=== PATIENT | male | born 1965 | race African-American/Black ===

== ENCOUNTER 2019-05-18 08:48 | Outpatient (CLI) | payer OTHER, SELFPAY ==
--- NOTE | ~2019-05-18 | XR_ITS ---
EXAMINATION: XR hip RT min 2V DATE: 05/18/2019 09:14 INDICATION: Right hip pain. TECHNIQUE: 2 views of right hip were obtained. COMPARISON: None. FINDINGS: Bone alignment is normal. No fracture. There is mild right hip osteoarthritis. IMPRESSION: 1. Mild right hip osteoarthritis. Reviewed, dictated and finalized at location A. SOFTWARE DEVELOPMENT ENGINEER
== END 2019-05-18 08:49 | disposition home or self-care (01) ==
LOC: ANHIMG 08:54
PROVIDERS: PCP Physician Assistant; Visit Provider Physician Assistant
DX: M16.11 Unilateral primary osteoarthritis, right hip (principal)
CPT/HCPCS: 73502

== ENCOUNTER 2020-08-25 09:50 | Emergency (ER) | payer OTHER, SELFPAY ==
[2020-08-25 10:12] VITALS: BP 174/98; PULSE 87; RESP 18; TEMP 36.4; O2SAT 100
[2020-08-25] MEDS: HYDROGEN PEROXIDE 3% SOLN(*SP) 473 ML BOTTLE (11:22)
[2020-08-25 11:38] VITALS: BP 182/95; PULSE 73; RESP 18; O2SAT 97
--- NOTE | 2020-08-25 11:44 | ED.EAR ---
HPI - Ear Problem General Chief complaint: Ear Stated complaint: high blood pressure, ?ear infection Time Seen by Provider: 08/25/20 10:17 Source: patient Mode of arrival: ambulatory Limitations: no limitations History of Present Illness HPI Narrative: Patient is a 55-year-old male who presents complaining of left ear pain. Patient reports he has been on antibiotics x 1 week for ear infection . Patient reports continued left ear pain and decreased hearing. He denies fever, sore throat or other complaints. MD Complaint: ear pain Location: left ear Related Data Allergies Allergy/AdvReac Type Severity Reaction Status Date / Time No Known Allergies Allergy Verified 08/25/20 11:37 Review of Systems Review of Systems: Narrative: CONSTITUTIONAL: Denies fever, chills, or sweats. EYES: Denies visual changes, redness, or discharge. ENT: Left ear pain CARDIOVASCULAR: Denies chest pain, palpitations, or edema. RESPIRATORY: Denies cough or dyspnea. GASTROINTESTINAL: Denies abdominal pain, nausea, vomiting, or diarrhea. GENITOURINARY: Denies dysuria or hematuria. SKIN: Denies rash or itching. MUSCULOSKELETAL: Denies back pain, joint pain, or myalgia. NEUROLOGIC: Denies headache, numbness, dizziness, or weakness. PSYCHIATRIC: Denies anxiety or depression. [facility] Past Medical History Medical History Hypertension Surgical History Surgical History History of orthopedic surgery Social History Social History (Updated 08/25/20 @ 11:59 by DELLA Mishra) Smoking status: Current every day smoker Alcohol intake: never Substance use: never Comments At the time of signature, I have reviewed and agree with nursing past medical, surgical, social, and family history unless otherwise noted. Please see nursing chart for further information. There is no relevant family history pertinent to the presenting complaint. Exam Narrative: Exam Narrative: GENERAL: Well-appearing, well-nourished, and in no acute distress. HEAD: Normocephalic, atraumatic. EYES: EOMI. No redness or drainage. Conjunctiva are normal. ENT: Mucous membranes pink and moist. Nares clear. No rhinorrhea. Right TM normal. Left TM not visualized as patient has a large cerumen impaction. Throat normal. Uvula midline. NECK: AROM. Supple. No lymphadenopathy. CHEST: No respiratory distress. HEART: Regular rate and rhythm. EXTREMITIES: Normal range of motion. SKIN: Warm, dry, no rash. NEURO: No focal deficits. Alert and oriented x3. Gait steady. PSYCH: Normal affect. No signs of depression or anxiety. Course Vital Signs Vital signs: Vital Signs Temperature 36.4 C L 08/25/20 10:12 Pulse Rate 87 08/25/20 10:12 Respiratory Rate 18 08/25/20 10:12 Blood Pressure 174/98 H 08/25/20 10:12 Pulse Oximetry 100 08/25/20 10:12 Temperature 36.4 C L 08/25/20 10:12 Pulse Rate 73 08/25/20 11:38 Respiratory Rate 18 08/25/20 11:38 Blood Pressure 182/95 H 08/25/20 11:38 Pulse Oximetry 97 08/25/20 11:38 Reviewed. Patient has been instructed to follow-up with his PCP regarding his blood pressure. Procedures Ear Wax Removal Left Ear: Ear Wax Removal Date: 08/25/20 Ear Wax Removal Time: 12:00 Results: Re-examined: cerumen removed completely Ear Canal Exam: atraumatic Patient Tolerated Procedure: well Complications: no problems Technique: ear canal irrigated and ear canal curetted Medical Decision Making MDM Narrative Medical decision making narrative: Large amount of cerumen removed from left ear. TM visualized, normal and intact. Vital Signs Vital Signs: Vital Signs Temperature 36.4 C L 08/25/20 10:12 Pulse Rate 87 08/25/20 10:12 Respiratory Rate 18 08/25/20 10:12 Blood Pressure 174/98 H 08/25/20 10:12 Pulse Oximetry 100 08/25/20 10:12 Temperature 36.
== END 2020-08-25 12:09 | disposition home or self-care (01) ==
PROVIDERS: Emergency Provider Nurse Practitioner; PCP Physician Assistant
DX: H61.22 Impacted cerumen, left ear (principal); I10 Essential (primary) hypertension; F17.200 Nicotine dependence, unspecified, uncomplicated
CPT/HCPCS: 69210; 99282; A9270

== ENCOUNTER 2020-10-10 09:32 | Outpatient (CLI) | payer OTHER, SELFPAY ==
--- NOTE | ~2020-10-10 | CT_ITS ---
EXAMINATION: CT pelvis wo con DATE: 10/10/2020 10:07 INDICATION: Bilateral inguinal pain. TECHNIQUE: Computed tomography (CT) of the pelvis was performed without intravenous contrast. Automat ed exposure control and iterative reconstruction technique were employed. The dose-length product was 877.11 mGy-cm. COMPARISON: CT abdomen and pelvis 10/29/2018 FINDINGS: There are supraumbilical and periumbilical ventral hernias containing fat. There are change s of right inguinal hernia repair. The prostate is mildly enlarged. There are no dilated loops of bow el. The appendix is normal. There are no pathologically enlarged lymph nodes. There is no free intrap eritoneal fluid. There is moderate lumbar spondylosis. IMPRESSION: 1. Supraumbilical and periumbilical ventral hernias containing fat. Reviewed, dictated and finalized at location A.
== END 2020-10-10 09:33 | disposition home or self-care (01) ==
PROVIDERS: PCP Physician Assistant; Visit Provider Surgery
DX: K42.9 Umbilical hernia without obstruction or gangrene (principal); K43.9 Ventral hernia without obstruction or gangrene
CPT/HCPCS: 72192

== ENCOUNTER 2020-11-09 08:51 | Observation (INO) | payer OTHER, SELFPAY ==
[2020-11-09] VITALS (19 sets, daily range): BP systolic 154–178; BP diastolic 76–99; PULSE 70–89; RESP 17–22; TEMP 36.4–37.4; O2SAT 94–100; BMI 33.2
--- NOTE | ~2020-11-09 | CT_ITS ---
EXAMINATION: CT brain wo con DATE: 11/09/2020 09:45 INDICATION: Headache. Stroke with residual slurred speech and right-sided weakness and paresthesias. TECHNIQUE: Computed tomography (CT) of the head was performed without intravenous contrast. Sagittal and coronal reconstructions were performed. The mA was adjusted according to patient size. Iterative reconstruction technique was employed. The dose-length product was 605.33 mGy-cm. COMPARISON: head CT dated 09/01/2018 FINDINGS: No acute intracranial hemorrhage, acute infarction or abnormal extra axial fluid collection. Ventricl es are normal and symmetric. No mass/mass effect. The orbits, paranasal sinuses and mastoid air cells are normal. IMPRESSION: 1. Normal brain. No acute intracranial process. Reviewed, dictated and finalized at location A.
--- NOTE | ~2020-11-09 | US_ITS ---
EXAMINATION: US carotid duplex BI DATE: 11/10/2020 15:49 INDICATION: Right arm paresthesias. TECHNIQUE: Grayscale, color Doppler, and pulsed Doppler images of the cervical carotid arteries were obtained. The degree of vessel stenosis is placed in one of the following categories: normal, <50%, 5 0-69%, >=70% but less than near-occlusion, near-occlusion, or total occlusion. Note that percent sten osis relative to normal distal artery lumen diameter is indirectly measured from velocity measurement s as described by Olvin, et al. Radiology 2003; [id number]:[id number]. COMPARISON: None. FINDINGS: RIGHT: The right common carotid artery (CCA) peak systolic velocity (PSV) is 83 cm/s. The right internal car otid artery (ICA) PSV is 101 cm/s. The right ICA end-diastolic velocity (EDV) is 25 cm/s. The right I CA/CCA PSV ratio is 1.2. Grayscale imaging of the right ICA is insufficient to exclude a small amount of plaque however if present, color Doppler images would be consistent with <50% diameter reduction from plaque in the ICA. The external carotid artery (ECA) PSV is 107 cm/s. There is antegrade flow in the right vertebral artery. LEFT: The left CCA PSV is 118 cm/s. The left ICA PSV is 93 cm/s. The left ICA EDV is 18 cm/s. The left ICA/ CCA PSV ratio is 0.8. As on the left the grayscale imaging of the left ICA is insufficient to exclude a small amount of plaque however if present, color Doppler images would be consistent with an estima te of <50% diameter reduction from plaque in the ICA. The ECA PSV is 86 cm/s. There is antegrade flow in the left vertebral artery. IMPRESSION: 1. Suboptimal grayscale visualization of the bilateral internal carotid arteries without definitive p laque however if plaque were present in either internal carotid artery, color Doppler imaging would b e consistent with <50% stenosis. Reviewed, dictated and finalized at location A. IMPRESSION: 1. Suboptimal grayscale visualization of the bilateral internal carotid arterie s without definitive plaque however if plaque were present in either internal c arotid artery, color Doppler imaging would be consistent with <50% stenosis.
--- NOTE | ~2020-11-09 | MR_ITS ---
EXAMINATION: MR brain/brain stem wo/w con EXAM DATE: 11/10/2020 13:31 INDICATION: Right-sided hemiparesis. TECHNIQUE: Magnetic resonance imaging (MRI) of the brain/brain stem obtained without contrast. Sagit giselle T1, axial diffusion, gradient echo (T2*), T1, T2, FLAIR sequences obtained. Patient was then inj ected with 20 cc intravenous Multihance contrast. Axial and coronal postcontrast T1 weighted sequence s obtained. Correlation is made to head CT 11/09/2020. FINDINGS: There are no areas of restricted diffusion to suggest acute infarction. There is no acute hemorrhage seen on the T2*, a hemosiderin sensitive sequence. No intraparenchymal brain mass. The ve ntricles are normal in size. There are no extra-axial collections. Flow voids are seen in the cereb ral arteries on the T2-weighted sequences consistent with their expected patency. Disconjugate gaze. Orbits otherwise unremarkable. Soft tissue is unremarkable. There are no areas of abnormal enhance ment on the postcontrast images. IMPRESSION: 1. Unremarkable brain MRI examination. Reviewed, dictated and finalized at location B.
--- NOTE | ~2020-11-09 | XR_ITS ---
EXAMINATION: XR chest 1V portable 11/09/2020 09:28 INDICATION: Dyspnea. PROCEDURE: AP chest COMPARISON: Chest dated 07/04/2018. FINDINGS: Subtle interstitial infiltrates of the mid and lower lung zones. The cardiomediastinal silh ouette is within normal limits. There are no pleural effusions. There is no pneumothorax suspected. Severe osteoarthritis of the right glenohumeral joint. IMPRESSION: 1: Subtle interstitial infiltrates of the mid and lower lung zones, suspicious for pneumonia.. Reviewed, dictated and finalized at location A.
--- NOTE | ~2020-11-09 | CT_ITS ---
EXAMINATION: CT cervical spine wo [facility] EXAM DATE: 11/09/2020 16:46 INDICATION: Neck and right arm pain, paresthesia. Right-sided neck and arm pain, paresthesia. TECHNIQUE: Spiral CT of the cervical spine was performed without contrast. Axial images were reviewe d. Coronal and sagittal reformatted images cervical spine were also reviewed. The dose-length produc t (DLP) for this examination was 433.12 mGy-cm. The exposure was tailored according to patient size (auto mA exposure control), and iterative reconstruction (ASIR) was used as additional dose reduction technique. There is no prior study for comparison. FINDINGS: There is moderate loss of the C3-4 disc height, mild to moderate disc disease at the other cervical levels. There are no acute fractures identified. The odontoid process is intact. The later al masses of C1 line up with C2. Medially positioned carotid arteries causing the prevertebral wideni ng. Paraspinal soft tissue is unremarkable. Level by level evaluation: C2-C3: There is a minimal diffuse disc bulge. Uncovertebral joint arthropathy: Mild left. Facet joint arthropathy: Mild bilateral. Neural foraminal stenosis: No stenosis. Central canal stenosis: No stenosis. C3-C4: There is a mild to moderate diffuse disc bulge. Uncovertebral joint arthropathy: Moderate right, mild left. Facet joint arthropathy: Mild bilateral. Neural foraminal stenosis: Mild to moderate right, mild left. Central canal stenosis: Mild . C4-C5: There is a mild to moderate diffuse disc bulge. Uncovertebral joint arthropathy: Mild to moderate left, mild right. Facet joint arthropathy: Mild bilateral. Neural foraminal stenosis: Mild left. Central canal stenosis: Mild. C5-C6: There is a mild diffuse disc bulge. Uncovertebral joint arthropathy: Mild to moderate left, mild right. Facet joint arthropathy: Mild bilateral. Neural foraminal stenosis: Mild left. Central canal stenosis: Mild. C6-C7: There is a mild diffuse disc bulge. Uncovertebral joint arthropathy: Mild to moderate bilateral. Facet joint arthropathy: Mild to moderate bilateral. Neural foraminal stenosis: No stenosis. Central canal stenosis: Minimal. C7-T1: There is a mild diffuse disc bulge. Uncovertebral joint arthropathy: Mild to moderate bilateral. Facet joint arthropathy: Mild bilateral. Neural foraminal stenosis: Mild to moderate bilateral. Central canal stenosis: No stenosis. IMPRESSION: Mild to moderate cervical spondylosis as detailed above. Reviewed, dictated and finalized at location B.
--- NOTE | 2020-11-09 09:08 | ECG_ITS ---
Measurements Intervals [place] Rate: 89 P: 61 CO: 171 QRS: -64 QRSD: 120 T: 41 QT: 364 QTc: 444 Interpretive Statements SINUS RHYTHM LEFT AXIS DEVIATION INCOMPLETE RIGHT BUNDLE BRANCH BLOCK BORDERLINE R WAVE PROGRESSION, ANTERIOR LEADS BASELINE ARTIFACT- I, III, AVR, AVL,A VF, V1-V2 BORDERLINE ECG Electronically Signed On 11-09-2020 9:29:06 CDT by Moo Joseph D.O.
--- NOTE | 2020-11-09 09:23 | ED.HA ---
HPI - Headache General Chief Complaint: Headache <Elba Gonzalez PA-C - Last Filed: 11/09/20 11:15> Stated Complaint: headache, back and arm pain <ANNY Neal Last Filed: 11/09/20 11:15> Time Seen by Provider: 11/09/20 09:05 <Elba Gonzalez PA-C - Last Filed: 11/09/20 11:15> Source: patient <ANNY Neal Last Filed: 11/09/20 11:15> Mode of arrival: ambulatory <ANNY Neal Last Filed: 11/09/20 11:15> Limitations: no limitations <ANNY Neal Last Filed: 11/09/20 11:15> History of Present Illness HPI Narrative: This is a 55 year old male that presents to the ER for headache x 3 days. Unable to really describe headache. Reports it is a funny feeling in his head. He gets some relief with Tylenol. He also reports some tingling in his right arm. Reports history of stroke with residual slurred speech. He was concerned he had another stroke which prompted him to be seen. Also reports neck and right arm pain that is worse with movement and relieved with rest. Denies any recent injury or trauma. Denies fever, stiff neck, vision changes, vomiting, or weakness. <Elba Gonzalez PA-C - Last Filed: 11/09/20 11:15> Related Data Home Medications: Home Medications Medication Instructions Recorded Confirmed aspirin 81 mg chewable tablet 81 mg PO DAILY 09/22/20 11/09/20 baclofen 10 mg tablet 10 mg PO DAILY 09/22/20 11/09/20 clonidine HCl 0.1 mg tablet 0.1 mg PO BID 09/22/20 11/09/20 fenofibrate nanocrystallized 145 145 mg PO DAILY 09/22/20 11/09/20 mg tablet ferrous sulfate 325 mg (65 mg 325 mg PO BID 09/22/20 11/09/20 iron) tablet folic acid 1 mg tablet 1 mg PO DAILY 09/22/20 11/09/20 gabapentin 300 mg capsule 600 mg PO TID 09/22/20 11/09/20 losartan 100 1 tablet PO DAILY 09/22/20 11/09/20 mg-hydrochlorothiazide 12.5 mg tablet omeprazole 40 mg capsule,delayed 40 mg PO DAILY 09/22/20 11/09/20 release tramadol 50 mg tablet 50 mg PO Q6H PRN 09/22/20 11/09/20 docusate sodium [Colace] 100 mg PO BID PRN 11/09/20 11/09/20 phenytoin sodium extended 100 mg PO TID 11/09/20 11/09/20 [Dilantin Extended] <Elba Gonzalez PA-C - Last Filed: 11/09/20 11:15> Allergies/Adverse Reactions: Allergies Allergy/AdvReac Type Severity Reaction Status Date / Time No Known Allergies Allergy Verified 11/09/20 09:17 <Elba Gonzalez PA-C - Last Filed: 11/09/20 11:15> Review of Systems Review of Systems: Narrative: CONSTITUTIONAL: Denies fever EYES: Denies visual changes CARDIOVASCULAR: Denies chest pain RESPIRATORY: Denies dyspnea. GASTROINTESTINAL: Denies vomiting MUSCULOSKELETAL: Reports joint pain, and myalgia. NEUROLOGIC: Denies headache, numbness, or weakness. <Elba Gonzalez PA-C - Last Filed: 11/09/20 11:15> All systems reviewed & are unremarkable except as noted in HPI and below <Elba Gonzalez PA-C - Last Filed: 11/09/20 11:15> [facility] Past Medical History Medical History: Medical History (Updated 11/09/20 @ 14:06 by Adina Pham PA-C) Blood clot in vein Cerebrovascular accident Residual dysarthria. Chronic anemia Dyslipidemia Hypertension Seizure <Elba Gonzalez PA-C - Last Filed: 11/09/20 11:15> Surgical History Surgical History: Surgical History (Updated 11/09/20 @ 14:06 by Adina Pham PA-C) History of excision of lesion History of orthopedic surgery Right arm. History of right inguinal hernia repair (11/13/18) History of umbilical hernia repair (11/13/18) <Elba Gonzalez PA-C - Last Filed: 11/09/20 11:15> Family History Family History: Family History Sibling Diabetes mellitus <Elba Gonzalez PA-C - Last Filed: 11/09/20 11:15> Social History Social History: Social History (Updated 11/09/20 @ 14:03 by Adina Pham PA-C) Social History: The patient lives in [place]. He is unemploye
[2020-11-09 09:24] LABS: Basophils Absolute Auto 0.1 K/mm3 (0.0-0.1); Basophils Percent Auto 0.7 % (0.2-1.2); Eosinophils Absolute Auto 0.2 K/mm3 (0-0.3); Eosinophils Percent Auto 2.3 % (0-4.4); Hematocrit 35.8 % (42.0-52.0); Hemoglobin 12.1 g/dL (14.0-18.0); Immature Granulocyte Absolute 0.02 K/mm3 (0.00-0.031); Immature Granulocyte Percent A 0.2 % (0-0.5); Immature Platelet Fraction Pct 16.8 % (0.9-11.2); Lymphocytes Absolute Auto 2.58 K/mm3 (0.9-3.2); Lymphocytes Percent Auto 27.4 % (18.3-44.2); Mean Corpuscular HGB Conc 33.8 g/dl (32-36); Mean Corpuscular Hemoglobin 28.8 pg (26-34); Mean Corpuscular Volume 85.2 fl (80-100); Mean Platelet Volume 13.3 fl (7.4-10.4); Monocytes Absolute Auto 1.1 K/mm3 (0.1-0.6); Monocytes Percent Auto 11.9 % (2.6-8.5); Neutrophils Absolute Auto 5.4 K/mm3 (1.3-6.7); Neutrophils Percent Auto 57.5 % (45.5-73.1); Platelet Count Result 154 k/mm3 (150-375); Red Cell Distribution Width 14.3 % (11.5-14.5); White Blood Count 9.4 K/mm3 (4.5-10.0)
--- NOTE | 2020-11-09 09:31 | PC.NURSE ---
Pt to CT scan via stretcher at this time.
[2020-11-09 09:32] LABS: INR 0.9; Prothrombin Time 11.7 Seconds (11.1-14.7)
[2020-11-09 09:35] LABS: Alanine Aminotransferase 23 U/L (4-50); Albumin Level 4.5 g/dL (3.5-5.1); Alkaline Phosphatase 65 U/L (38-126); Anion Gap 10 mmol/L (8-16); Aspartate Amino Transferase 37 U/L (17-59); Bilirubin,Total 0.5 mg/dL (0.2-1.3); Blood Urea Nitrogen 12 mg/dL (9-20); Calcium 9.5 mg/dL (8.4-10.2); Carbon Dioxide 26 mmol/L (22-30); Chloride 102 mmol/L (98-107); Estimated CRCL calculation 94 ml/min; Estimated Glomerular Filt Rate > 60; Glucose 120 mg/dL (65-110); Potassium 4.1 mmol/L (3.4-5.0); Sodium 138 mmol/L (137-145)
[2020-11-09 09:49] LABS: Troponin I < 0.012 ng/mL (0.000-0.034)
[2020-11-09 10:41] LABS: Glucose Point of Care 136 mg/dl (65-105)
[2020-11-09] MEDS: ASPIRIN 81 MG ENTERIC TABLET 243 MG PO (11:42)
--- NOTE | 2020-11-09 14:15 | PM.IMHP ---
H&P: HPI History of Present Illness Date/Time: 11/09/20 14:15 Chief Complaint: Headache and right arm tingling. Narrative: This is a very pleasant 55-year-old male with history of stroke, hypertension, and dyslipidemia who presented to the emergency department earlier today from home for evaluation of headache and right arm tingling. He has had headache for approximately 3 days that he has a difficult time describing and just says I have a funny feeling in my head. He has been taking Tylenol with perhaps a little bit of relief. Additionally he has had tingling in his right arm which has concerned him for the possibility of perhaps another stroke. With further questioning he has been having neck and right arm discomfort, worse with movement and relieved with rest which began after he started physical therapy due to lumbar radiculopathy which he has been doing for the last couple of weeks. He admits that he has been using his arms more in physical therapy, in order to help stretch out his legs and lumbar spine. He does have residual right-sided weakness and slurred speech from a previous stroke in 2003 but he has not noticed that is right-sided is any more weak than normal. He denies vertigo, photophobia, auditory and visual changes, worsening weakness from baseline, chest pain, palpitations, and dysphagia. Of note, chest x-ray showed subtle interstitial infiltrate of the mid lower lung zone suspicious for pneumonia. He was tested for COVID-19 emergency department that came back negative. The patient has no signs or symptoms to suggest underlying pneumonia or infection and he specifically denies fever, chills, sweats, sinus congestion, rhinorrhea, otalgia, odynophagia, shortness of breath, cough, nausea, vomiting, and diarrhea. Review of Systems Review of Systems: Twelve systems were reviewed with pertinent positives and negatives as per HPI. He has occasional intermittent lower extremity edema, more so on the right side he, of unclear etiology. He had a DVT many years ago. He denies calf pain and tenderness. No recent travel. Currently undergoing physical therapy for lumbar radiculopathy as per HPI. He has not had any recent falls or trauma. No saddle anesthesia, bladder, or bowel incontinence. Except as documented, all other systems were reviewed and are negative. [facility] Past Medical History Medical History (Updated 11/09/20 @ 23:53 by Adina Pham PA-C) Cerebrovascular accident Residual right-sided weakness and dysarthria. Chronic anemia Deep venous thrombosis Dyslipidemia Hypertension Seizure disorder Surgical History Surgical History (Updated 11/09/20 @ 23:45 by Adina Pham PA-C) History of excision of lesion History of orthopedic surgery Repair of right arm fracture. History of right inguinal hernia repair (11/13/18) History of umbilical hernia repair (11/13/18) Family History Family History Sibling Diabetes mellitus Social History Social History (Updated 11/09/20 @ 23:46 by Adina Pham PA-C) Social History: The patient lives alone in [place]. He is not and has no children. He is on disability since his stroke in 2003. Former smoker. No alcohol or illicit substance abuse. His niece, Cruz Vyas, is his healthcare power of deputy commonwealth's attorney. Code status: Full code. Meds Home Medications and Allergies Home Medications Medication Instructions Recorded Confirmed Type aspirin 81 mg chewable tablet 81 mg PO DAILY 09/22/20 11/09/20 History baclofen 10 mg tablet 10 mg PO DAILY 09/22/20 11/09/20 History clonidine HCl 0.1 mg tablet 0.1 mg PO BID 09/22/20 11/09/20 History fenofibrate nanocrystallized 145 145 mg PO DAILY 09/22/20 11/09/20 History mg tablet ferrous sulfate 325 mg (65 mg 325 mg PO BID 09/22/20 11/09/20 History iron) tablet folic acid 1 mg tablet 1 mg PO DAILY 09/22/20 11/09/20 History gabapentin 300 mg capsule 600 mg PO
[2020-11-09 15:05] LABS: Iron 57 ug/dL (49-181)
[2020-11-09 15:06] LABS: CRP 3.9 mg/dL (<1.0); Lactate Dehydrogenase 543 U/L (313-618); Magnesium 1.5 mg/dL (1.6-2.3)
[2020-11-09 15:12] LABS: NT Pro B Type Natriuretic Pept 23 pg/mL (5-100)
[2020-11-09 15:15] LABS: Percent Iron Saturation 19 % (20-50)
[2020-11-09 15:38] LABS: Procalcitonin 0.1 ng/mL
[2020-11-09 16:13] LABS: Folic Acid > 20.0 ng/mL (2.76->20)
--- NOTE | 2020-11-09 17:28 | ADMGEN ---
This patient, Jose Vyas, was admitted to 3 [facility] Surg Room 330-02. Patient/family oriented to hospital policies and general routines including ID bracelet, bed and alarms, visiting hours, pain management, procedures, bathroom and other care routines, personal items, smoking policy, room service/diet, and visiting hours. Information on how to activate the Rapid Response Team has been discussed. Patient/Family are encouraged to report perceived risks to care and to ask questions if they do not understand what they are told or what they should do.
[2020-11-09 18:39] LABS: SARS-CoV-2 RNA PCR Negative
[2020-11-09 20:55] LABS: Phenytoin Dilantin 13 ug/mL (10-20)
[2020-11-09] MEDS: MAGNESIUM OXIDE 400 MG TABLET PO (21:43)
[2020-11-10] VITALS (9 sets, daily range): BP systolic 146–166; BP diastolic 73–84; PULSE 64–84; RESP 16–20; TEMP 36.3–36.7; O2SAT 99–100
--- NOTE | 2020-11-10 | ECHO_ITS ---
Patient Info Name: Jose Vyas Age: 55 years : 1965 Gender: Male Ht: 72 in Wt: 245 lbs BSA: 2.41 m2 HR: 66 bpm BP: 166 / 84 mmHg Heart Rhythm: Sinus Rhythm Technical Quality: Fair Exam Date: 11/10/2020 2:49 PM Exam Location: [facility] Patient Status: Inpatient Admit Date: 11/09/2020 Staff Ordering Physician: Danya Gee PA-C Flat Machine Cutter: Rose Marie Jimenez RDCS Attending Provider: Danya Gee PA-C Exam Type: CA echo doppler color flow Study Info Indications - RIGHT ARM PARESTHESIA CONCERN FOR TIA Complete two-dimensional, color flow and Doppler transthoracic echocardiogram is performed. Summary 1. Complete two-dimensional, color flow and Doppler transthoracic echocardiogram is performed. 2. Left ventricular chamber size and systolic function are normal with no regional wall motion abnormalities with an estimated ejection fraction of 60-65%. Mild LVH. Grade 2 diastolic dysfunction. 3. Left atrial chamber dimension is mildly enlarged. 4. No significant valve disease. 5. No pulmonary hypertension, estimated pulmonary arterial systolic pressure is 26 mmHg. 6. No masses or thrombi seen. 7. Normal sinus rhythm. Left Ventricle Left ventricular chamber size and systolic function are normal with no regional wall motion abnormalities with an estimated ejection fraction of 60-65%. Mild LVH. Grade 2 diastolic dysfunction. Left ventricular chamber dimension is normal. Left ventricular systolic function is normal, estimated at 60-65%. There is mildly increased left ventricular wall thickness. Left ventricular septal wall motion is normal. The left ventricular diastolic function is grade II diastolic dysfunction. Right Ventricle Right ventricular chamber dimension is normal. Right ventricular systolic function is normal. Left Atria Left atrial chamber dimension is mildly enlarged. Right Atria Right atrial chamber dimension is normal. Aortic Valve The aortic valve is trileaflet. There is no aortic valve sclerosis. There is no aortic valve stenosis. There is no aortic valve regurgitation. Pulmonic Valve The pulmonic valve is normal. There is no pulmonic valve stenosis. There is trace pulmonic regurgitation. Mitral Valve The mitral valve has normal leaflets. There is no mitral valve stenosis. There is no mitral valve regurgitation. Tricuspid Valve The tricuspid valve leaflets are normal. There is no significant tricuspid valve stenosis. There is trace tricuspid valve regurgitation. No pulmonary hypertension, estimated pulmonary arterial systolic pressure is 26 mmHg. Pericardium/Pleural The pericardium appears normal. There is trivial pericardial effusion. Inferior Vena Cava Normal inferior vena cava with >50% collapse upon inspiration consistent with normal right atrial pressure, 10 mmHg. Aorta The aortic root size at the sinus of Valsalva is normal. The prox ascending aorta size is normal. Left Ventricular Outflow Tract Name Value Normal LVOT 2D LVOT Diameter 2.0 cm LVOT Doppler LVOT Peak Gradient 6 mmHg LVOT
[2020-11-10] MEDS: GABAPENTIN 300 MG CAPSULE 600 MG PO ×4 (00:17→17:41)
[2020-11-10] MEDS: ACETAMINOPHEN 325 MG TABLET 650 MG PO (00:17)
[2020-11-10] MEDS: cloNIDine HCL 0.1 MG TABLET PO ×3 (00:18→21:25)
[2020-11-10 07:46] LABS: Phenytoin Dilantin 12 ug/mL (10-20)
--- NOTE | 2020-11-10 08:44 | WPDNEURCNPN ---
Assessment and Plan Additional Plan clinically stable evaluation has documented very mild stenosis of cervical spine on CT scan, negative CT of the head, will benefit from the MRI and echo for long-term recommendation Consult date: 11/10/20 Time Seen: 09:00 HPI: Jose Vyas is a 55 year old male admitted to the hospital for the complaints of headache with right upper extremity paresthesia he has been taking fall with little bit relief but additionally experiencing tingling sensation in the right upper extremity and was concerned about the possibility of the stroke has been experiencing neck and right upper extremity discomfort with movements started after physical therapy was being given for lumbar radiculopathy patient was noted to have residual right side weakness along the slurred speech from the previous stroke in 2003 this COVID test in emergency room was negative past history is consistent with the previous stroke with right-sided weakness and dysarthria along with chronic anemia history of DVT hypertension and seizure disorder Review of Systems Review of Systems: All systems reviewed & are unremarkable except as noted in HPI and below PMFSH Past Medical History Medical History Cerebrovascular accident Residual right-sided weakness and dysarthria. Chronic anemia Deep venous thrombosis Dyslipidemia Hypertension Seizure disorder Surgical History Surgical History History of excision of lesion History of orthopedic surgery Repair of right arm fracture. History of right inguinal hernia repair (11/13/18) History of umbilical hernia repair (11/13/18) Family History Family History Sibling Diabetes mellitus Social History Social History Social History: The patient lives alone in [place]. He is not and has no children. He is on disability since his stroke in 2003. Former smoker. No alcohol or illicit substance abuse. His niece, Cruz Vyas, is his healthcare power of notereader. Code status: Full code. Meds Home Medications and Allergies Home Medications Medication Instructions Recorded Confirmed Type aspirin 81 mg chewable tablet 81 mg PO DAILY 09/22/20 11/09/20 History baclofen 10 mg tablet 10 mg PO BID 09/22/20 11/10/20 History clonidine HCl 0.1 mg tablet 0.1 mg PO BID 09/22/20 11/09/20 History fenofibrate nanocrystallized 145 145 mg PO DAILY 09/22/20 11/09/20 History mg tablet ferrous sulfate 325 mg (65 mg 325 mg PO BID 09/22/20 11/09/20 History iron) tablet folic acid 1 mg tablet 1 mg PO DAILY 09/22/20 11/09/20 History gabapentin 300 mg capsule 600 mg PO TID 09/22/20 11/09/20 History losartan 100 1 tablet PO DAILY 09/22/20 11/09/20 History mg-hydrochlorothiazide 12.5 mg tablet omeprazole 40 mg capsule,delayed 40 mg PO DAILY 09/22/20 11/09/20 History release tramadol 50 mg tablet 50 mg PO Q6H PRN 09/22/20 11/09/20 History docusate sodium [Colace] 100 mg PO BID PRN 11/09/20 11/09/20 History phenytoin sodium extended 100 mg PO TID 11/09/20 11/09/20 History [Dilantin Extended] baclofen 20 mg PO PRN PRN 11/10/20 11/10/20 History Allergies Allergy/AdvReac Type Severity Reaction Status Date / Time No Known Allergies Allergy Verified 11/09/20 09:17 Vital Signs Vital Signs - 24 hr 11/09/20 08:55 11/09/20 10:24 11/09/20 11:43 Temperature 37.4 C Pulse Rate 89 82 78 Respiratory Rate 22 H 17 19 Blood Pressure 176/98 H 157/92 H 169/92 H Pulse Oximetry 94 98 100 11/09/20 13:04 11/09/20 14:01 11/09/20 15:00 Temperature Pulse Rate 76 76 70 Respiratory Rate 20 20 18 Blood Pressure 170/84 H 172/94 H 154/91 H Pulse Oximetry 98 98 100 11/09/20 15:16 11/09/20 15:32 11/09/20 15:45 Temperature Pulse Rate 71 70 71 Respiratory Rate 18 17 17 Blood Pressure Pu
[2020-11-10] MEDS: BACLOFEN 10 MG TABLET PO ×2 (08:52→17:41)
[2020-11-10] MEDS: FENOFIBRATE NANOCRYSTALLIZED 145 MG TABLET PO (08:52)
[2020-11-10] MEDS: FERROUS SULFATE 324 MG TABLET PO ×2 (08:52→17:41)
[2020-11-10] MEDS: ASPIRIN 81 MG CHEWABLE TABLET PO (08:52)
[2020-11-10] MEDS: FOLIC ACID 1 MG TABLET 2 MG PO (08:53)
[2020-11-10] MEDS: hydroCHLOROthiazide 12.5 MG CAPSULE PO (08:53)
[2020-11-10] MEDS: PANTOPRAZOLE 40 MG TABLET PO (08:53)
[2020-11-10] MEDS: LOSARTAN POTASSIUM 100 MG TABLET PO (08:53)
[2020-11-10 09:24] LABS: Anion Gap 9 mmol/L (8-16); Blood Urea Nitrogen 14 mg/dL (9-20); Calcium 9.5 mg/dL (8.4-10.2); Carbon Dioxide 25 mmol/L (22-30); Chloride 102 mmol/L (98-107); Estimated CRCL calculation 85 ml/min; Estimated Glomerular Filt Rate > 60; Glucose 97 mg/dL (65-110); Magnesium 1.7 mg/dL (1.6-2.3); Potassium 4.3 mmol/L (3.4-5.0); Sodium 136 mmol/L (137-145)
[2020-11-10] MEDS: MAGNESIUM SULF 2 GM/WATER 50ML 2 GM/50 ML BAG IVPB (12:44)
--- NOTE | 2020-11-10 14:57 | PM.IMPN ---
Progress Note: A&P Assessment and Plan (1) Headache: Code(s): R51.9 - Headache, unspecified Status: Acute Assessment and Plan: Bifrontal headache is resolved. Continue supportive care with Tylenol as needed. He gives no history to suggest underlying infection. MRI brain is unremarkable. (2) Paresthesia of right arm: Code(s): R20.2 - Paresthesia of skin Status: Acute Assessment and Plan: Worse than his baseline right arm weakness with occasional paresthesias. May very well be due to increase use of that extremity during physical therapy in which he uses his arms to help stretch his legs. As he is currently doing PT for lumbar radiculopathy he may very well have some cervical spine issues - CT spine demonstrates mild to moderate cervical spondylosis with some RAVIN neural foraminal stenosis. MRI with no evidence of CVA. TIA is possible. Echocardiogram and carotid dopplers pending. Dr. Brown consulted and his input is appreciated. Symptom not present at this time. Continue PT/OT. (3) Chronic anemia: Code(s): D64.9 - Anemia, unspecified Status: Chronic Assessment and Plan: H&H low but stable. No evidence of acute bleeding. Monitor CBC. (4) Dyslipidemia: Code(s): E78.5 - Hyperlipidemia, unspecified Status: Chronic Assessment and Plan: Continue home statin therapy. (5) Hypertension: Code(s): I10 - Essential (primary) hypertension Status: Chronic Assessment and Plan: BPs reviewed; a bit elevated above target but improved this afternoon. Continue his home regimen including losartan, HCTZ, clonidine. Monitor BP and adjust treatment as needed. (6) Person under investigation for COVID-19: Code(s): Z20.822 - Contact with and (suspected) exposure to COVID-19 Status: Ruled-out Assessment and Plan: Patient tested negative for COVID. He gives no signs or symptoms to suggest underlying infection despite chest x-ray results. (7) Seizure disorder: Code(s): G40.909 - Epilepsy, unspecified, not intractable, without status epilepticus Status: Chronic Assessment and Plan: Dilantin level is normal. Continue home Dilantin. Subjective Date/time seen: 11/10/20 1430 Interval history: Mr. Vyas is a pleasant 55yo M with history of hypertension, dyslipidemia, and prior stroke with residual R sided weakness and dysarthria who is seen in follow up for headache and right arm tingling. He is feeling well today. He describes intermittent neck pain with intermittent R arm numbness and tingling, none at present. Denies headache. He describes he started working with physical therapy recently for his back and has been doing more exercises with his arms. His left arm seems unaffected. He denies chest pain, shortness of breath, nausea or vomiting. Tolerating meals well. Review of Systems Review of Systems: All systems reviewed & are unremarkable except as noted in HPI and below Exam Narrative: General: Well-developed well-appearing male resting comfortably sitting up in bedside chair in no acute distress. HEENT: Normocephalic, EOMI, oral mucosa moist. Cardiovascular: Rate and rhythm are regular. Respiratory: Lungs clear to auscultation bilaterally. Respirations even and non-labored. Tolerating room air. Abdomen: Soft, non-tender, non-distended, bowel sounds present. Extremities: Peripheral pulses intact. No edema, erythema or pain to palpation. Active ROM R shoulder is limited due to pain. 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 Neuro: Awake and alert; answering questions appropriately. Residual right-sided weakness o
[2020-11-10] MEDS: PHENYTOIN SODIUM 100 MG CAP 300 MG PO (21:25)
[2020-11-11] VITALS: PULSE 65
[2020-11-11 04:00] VITALS: PULSE 68
[2020-11-11 05:27] VITALS: PULSE 74; RESP 20; TEMP 36.3; O2SAT 99
[2020-11-11 06:37] LABS: Hematocrit 38.1 % (42.0-52.0); Hemoglobin 12.8 g/dL (14.0-18.0)
[2020-11-11 06:49] LABS: Anion Gap 9 mmol/L (8-16); Blood Urea Nitrogen 15 mg/dL (9-20); Calcium 9.8 mg/dL (8.4-10.2); Carbon Dioxide 27 mmol/L (22-30); Chloride 101 mmol/L (98-107); Estimated CRCL calculation 93 ml/min; Estimated Glomerular Filt Rate > 60; Glucose 96 mg/dL (65-110); Magnesium 1.8 mg/dL (1.6-2.3); Potassium 4.8 mmol/L (3.4-5.0); Sodium 137 mmol/L (137-145)
[2020-11-11] MEDS: BACLOFEN 10 MG TABLET PO (08:37)
[2020-11-11] MEDS: ASPIRIN 81 MG CHEWABLE TABLET PO (08:37)
[2020-11-11] MEDS: FERROUS SULFATE 324 MG TABLET PO (08:38)
[2020-11-11] MEDS: GABAPENTIN 300 MG CAPSULE 600 MG PO ×2 (08:38→12:25)
[2020-11-11] MEDS: FENOFIBRATE NANOCRYSTALLIZED 145 MG TABLET PO (08:38)
[2020-11-11] MEDS: cloNIDine HCL 0.1 MG TABLET PO (08:38)
[2020-11-11] MEDS: FOLIC ACID 1 MG TABLET 2 MG PO (08:38)
[2020-11-11] MEDS: PHENYTOIN SODIUM 100 MG CAP 300 MG PO (08:39)
[2020-11-11] MEDS: LOSARTAN POTASSIUM 100 MG TABLET PO (08:39)
[2020-11-11] MEDS: hydroCHLOROthiazide 12.5 MG CAPSULE PO (08:39)
[2020-11-11] MEDS: PANTOPRAZOLE 40 MG TABLET PO (08:39)
[2020-11-11] MEDS: MAGNESIUM OXIDE 400 MG TABLET PO (09:59)
--- NOTE | 2020-11-11 13:11 | PM.DS ---
DS: Admitting Diagnosis Admitting Diagnosis R arm paresthesia DS: Discharge Diagnosis Discharge Diagnosis (1) Headache: Code(s): R51.9 - Headache, unspecified Status: Acute Assessment and Plan: Date of Admission 11/09/20 Date of Discharge 11/11/20 Mr. Vyas is a very pleasant 55yo M with history of CVA with residual dysarthria and right-sided weakness who presented to the ED for evaluation of headache and R arm weakness worse than his baseline with numbness/tingling. CT and MRI brain showed no evidence of new stroke. Carotid dopplers within normal limits. Echocardiogram noted below. He was evaluated by neurology. He described he had recently been doing more upper extremity exercises with PT for his chronic back pain. It is suspected his symptoms may have been related to a cervical radiculopathy. The R arm paresthesia is intermittent and is not present at time of discharge. His speech and comprehension are at baseline. He is hemodynamically stable for discharge on 11/11/20. Bifrontal headache is resolved. Continue supportive care with Tylenol as needed. He gives no history to suggest underlying infection. MRI brain is unremarkable. (2) Paresthesia of right arm: Code(s): R20.2 - Paresthesia of skin Status: Acute Assessment and Plan: Worse than his baseline right arm weakness with occasional paresthesias. May very well be due to increase use of that extremity during physical therapy in which he uses his arms to help stretch his legs. As he is currently doing PT for lumbar radiculopathy he may very well have some cervical spine issues - CT spine demonstrates mild to moderate cervical spondylosis with some RAVIN neural foraminal stenosis. MRI with no evidence of CVA. TIA is possible. Echocardiogram and carotid dopplers below. Evaluated by neurology, Dr Brown. Symptom not present at this time. Continue PT/OT. (3) Chronic anemia: Code(s): D64.9 - Anemia, unspecified Status: Chronic Assessment and Plan: H&H low but stable. No evidence of acute bleeding. (4) Dyslipidemia: Code(s): E78.5 - Hyperlipidemia, unspecified Status: Chronic Assessment and Plan: Continue home statin therapy. (5) Hypertension: Code(s): I10 - Essential (primary) hypertension Status: Chronic Assessment and Plan: BPs variable but stable maintained on his home regimen including losartan, HCTZ, clonidine. (6) Person under investigation for COVID-19: Code(s): Z20.822 - Contact with and (suspected) exposure to COVID-19 Status: Ruled-out Assessment and Plan: Patient tested negative for COVID. He gives no signs or symptoms to suggest underlying infection despite chest x-ray results. (7) Seizure disorder: Code(s): G40.909 - Epilepsy, unspecified, not intractable, without status epilepticus Status: Chronic Assessment and Plan: Dilantin level is normal. Continue home Dilantin. DS: Summary Hospital Course Hospital Course: See above Time Spent with Patient Time attestation: Total time spent providing and/or coordinating discharge services: 35 minutes Exam Narrative: General: Well-developed well-appearing male resting comfortably sitting up in bedside chair in no acute distress. HEENT: Normocephalic, EOMI, oral mucosa moist. Cardiovascular: Rate and rhythm are regular. Respiratory: Lungs clear to auscultation bilaterally. Respirations even and non-labored. Tolerating room air. Abdomen: Soft, non-tender, non-distended, bowel sounds present. Extremities: Peripheral pulses intact. No edema, erythema or pain to palpation. Active ROM R
[2020-11-11 14:00] VITALS: BP 153/85; PULSE 74; RESP 16; TEMP 35.9; O2SAT 100
--- NOTE | 2020-11-11 14:57 | PCPTNOTE ---
PT eval not done. Pt being discharge to home.
== END 2020-11-11 15:20 | disposition home or self-care (01) ==
LOC: ANHED 11:07 → ANH3MEDSUR 13:17
PROVIDERS: Physician Assistant; Admitting Provider Internal Medicine; Emergency Provider General Practice; PCP Physician Assistant; Visit Provider Hospitalist
DX: R51.9 Headache, unspecified (principal); I69.322 Dysarthria following cerebral infarction; I69.351 Hemiplegia and hemiparesis following cerebral infarction affecting right dominant side; R20.2 Paresthesia of skin; E78.5 Hyperlipidemia, unspecified; I10 Essential (primary) hypertension; D64.9 Anemia, unspecified; M54.16 Radiculopathy, lumbar region; M47.812 Spondylosis without myelopathy or radiculopathy, cervical region; G40.909 Epilepsy, unspecified, not intractable, without status epilepticus; Z20.822 Contact with and (suspected) exposure to COVID-19; Z79.82 Long term (current) use of aspirin; Z86.718 Personal history of other venous thrombosis and embolism
CPT/HCPCS: 36415; 70450; 70553; 71045; 72125; 80048; 80053; 80185; 82607; 82728; 82746; 82948; 83540; 83550; 83615; 83735; 83880; 84145; 84443; 84484; 85014; 85018; 85025; 85055; 85610; 85730; 86140; 93005; 93306; 93880; 96365; 97165; 99285; A9270; A9577; C9803; G0378; G0379; J3475; U0003; U0005

== ENCOUNTER 2020-12-27 08:58 | Emergency (ER) | payer OTHER, SELFPAY ==
--- NOTE | ~2020-12-27 | XR_ITS ---
EXAMINATION: XR ankle LT min 3V DATE: 12/27/2020 09:45 INDICATION: Left ankle swelling and pain TECHNIQUE: Anteroposterior, lateral, mortise, and additional oblique view of the ankle were obtained. COMPARISON: None. FINDINGS: There is moderate soft tissue swelling of the ankle, particularly at the lateral aspect. Sebas ne alignment is normal. No fracture is identified. IMPRESSION: 1. Soft tissue swelling without acute osseous abnormality identified. Reviewed, dictated and finalized at location A.
--- NOTE | ~2020-12-27 | US_ITS ---
EXAMINATION: US venous doppler [facility] EXAM DATE: 12/27/2020 09:59 INDICATION: Left lower extremity swelling. TECHNIQUE: Multiple grayscale, color flow and Doppler images of the left lower extremity deep venous system were obtained and reviewed. There is no prior study for comparison. FINDINGS: The left common femoral, femoral and profunda veins demonstrate normal color flow, respirat ory variation, augmentation and compressibility. Compressibility, color flow confirmed within the le ft popliteal, posterior tibial, peroneal, and greater saphenous veins. IMPRESSION: 1. No left lower extremity deep venous thrombosis. Reviewed, dictated and finalized at location B.
[2020-12-27 09:03] VITALS: BP 212/90; PULSE 94; RESP 16; TEMP 37.2; O2SAT 100
[2020-12-27 10:19] LABS: Basophils Absolute Auto 0.1 K/mm3 (0.0-0.1); Basophils Percent Auto 0.7 % (0.2-1.2); Eosinophils Absolute Auto 0.2 K/mm3 (0-0.3); Hematocrit 35.2 % (42.0-52.0); Hemoglobin 11.5 g/dL (14.0-18.0); Immature Granulocyte Absolute 0.05 K/mm3 (0.00-0.031); Immature Granulocyte Percent A 0.6 % (0-0.5); Lymphocytes Absolute Auto 2.89 K/mm3 (0.9-3.2); Lymphocytes Percent Auto 35.5 % (18.3-44.2); Mean Corpuscular HGB Conc 32.7 g/dl (32-36); Mean Corpuscular Hemoglobin 28.7 pg (26-34); Mean Corpuscular Volume 87.8 fl (80-100); Mean Platelet Volume 11.3 fl (7.4-10.4); Monocytes Absolute Auto 0.8 K/mm3 (0.1-0.6); Monocytes Percent Auto 9.6 % (2.6-8.5); Neutrophils Absolute Auto 4.1 K/mm3 (1.3-6.7); Neutrophils Percent Auto 50.6 % (45.5-73.1); Platelet Count Result 229 k/mm3 (150-375); Red Blood Count 4.01 M/mm3 (4.6-6.20); Red Cell Distribution Width 13.9 % (11.5-14.5); White Blood Count 8.1 K/mm3 (4.5-10.0)
[2020-12-27 10:38] LABS: Anion Gap 10 mmol/L (8-16); Blood Urea Nitrogen 14 mg/dL (9-20); Calcium 8.9 mg/dL (8.4-10.2); Carbon Dioxide 26 mmol/L (22-30); Chloride 104 mmol/L (98-107); Estimated CRCL calculation 105 ml/min; Estimated Glomerular Filt Rate > 60; Glucose 110 mg/dL (65-110); Potassium 3.9 mmol/L (3.4-5.0); Sodium 140 mmol/L (137-145)
--- NOTE | 2020-12-27 11:27 | ED.LOWEXIN ---
HPI - Extremity Injury (Lower) General Chief Complaint: Extremity Injury, Lower Stated Complaint: Wound L Foot Time Seen by Provider: 12/27/20 09:05 History of Present Illness HPI Narrative: Patient is a 55-year-old male who presents ER with concerns regarding a wound to his left hilliard and swelling to his foot. Reports he struck his leg 2 days ago and is developed a scab. No fevers or chills or sweats. No redness. There is mild discomfort. He has developed some swelling since this occurred. Reports the swelling goes down if he elevates his leg. No chest pain or chest pressure or difficulty breathing. No previous history of blood clots. Related Data Home Medications Medication Instructions Recorded Confirmed aspirin 81 mg chewable tablet 81 mg PO DAILY 09/22/20 11/09/20 baclofen 10 mg tablet 10 mg PO BID 09/22/20 11/10/20 clonidine HCl 0.1 mg tablet 0.1 mg PO BID 09/22/20 11/09/20 fenofibrate nanocrystallized 145 145 mg PO DAILY 09/22/20 11/09/20 mg tablet ferrous sulfate 325 mg (65 mg 325 mg PO BID 09/22/20 11/09/20 iron) tablet folic acid 1 mg tablet 1 mg PO DAILY 09/22/20 11/09/20 gabapentin 300 mg capsule 600 mg PO TID 09/22/20 11/09/20 losartan 100 1 tablet PO DAILY 09/22/20 11/09/20 mg-hydrochlorothiazide 12.5 mg tablet omeprazole 40 mg capsule,delayed 40 mg PO DAILY 09/22/20 11/09/20 release tramadol 50 mg tablet 50 mg PO Q6H PRN 09/22/20 11/09/20 docusate sodium [Colace] 100 mg PO BID PRN 11/09/20 11/09/20 phenytoin sodium extended 100 mg PO TID 11/09/20 11/09/20 [Dilantin Extended] baclofen 20 mg PO PRN PRN 11/10/20 11/10/20 Allergies Allergy/AdvReac Type Severity Reaction Status Date / Time No Known Allergies Allergy Verified 12/27/20 09:11 Review of Systems Review of Systems: All systems reviewed & are unremarkable except as noted in HPI and below Constitutional: Constitutional: Denies fever(s) and Denies weakness Cardiovascular: Cardiovascular: Denies chest pain, Denies rapid heart rate and Denies radiating jaw, neck or arm pain Respiratory: Respiratory: Denies cough and Denies dyspnea Musculoskeletal: Musculoskeletal: Denies arthralgias, Denies joint swelling and Denies muscle cramps Comments: LLE edema Integumentary/Breasts: Skin/Breast: Denies pruritus and Denies rash Comments: Scabbing left hilliard Neurologic: Denies focal weakness and Denies numbness PMFSH Past Medical History Medical History Cerebrovascular accident Residual right-sided weakness and dysarthria. Chronic anemia Deep venous thrombosis Dyslipidemia Hypertension Seizure disorder Surgical History Surgical History History of excision of lesion History of orthopedic surgery Repair of right arm fracture. History of right inguinal hernia repair (11/13/18) History of umbilical hernia repair (11/13/18) Family History Family History Sibling Diabetes mellitus Social History Social History Social History: The patient lives alone in [place]. He is not and has no children. He is on disability since his stroke in 2003. Former smoker. No alcohol or illicit substance abuse. His niece, Cruz Vyas, is his healthcare power of qualitative field coordinator. Code status: Full code. Exam Narrative: GENERAL: Well-appearing, well-nourished, and in no acute distress. HEAD: Normocephalic, atraumatic. CHEST: Clear to auscultation. No respiratory distress. HEART: Regular rate and rhythm. Normal peripheral pulses. EXTREMITIES: Normal range of motion. Right lower extremity with a compressive wrap on for edema. Left lower extremity with 2+ edema and a well-healing scab to left anterior hilliard. SKIN: Warm, dry, no rash. NEURO: Chronic dysarthria. Alert and oriented x3. PSYCH: Normal mood and affect. Course Course Emergency Co
[2020-12-27 11:37] LABS: Atypical Lymphocytes Present; Basophilic Stippling 1+ (NORMAL); Platelet Estimate Adequate (Adequate)
[2020-12-27 11:40] VITALS: BP 174/83; PULSE 78; RESP 18; O2SAT 95
== END 2020-12-27 11:47 | disposition home or self-care (01) ==
PROVIDERS: Emergency Provider Emergency Medicine; PCP Physician Assistant
DX: S81.802A Unspecified open wound, left lower leg, initial encounter (principal); I69.359 Hemiplegia and hemiparesis following cerebral infarction affecting unspecified side; I69.322 Dysarthria following cerebral infarction; E78.5 Hyperlipidemia, unspecified; I10 Essential (primary) hypertension; G40.909 Epilepsy, unspecified, not intractable, without status epilepticus; Z79.899 Other long term (current) drug therapy; Z86.718 Personal history of other venous thrombosis and embolism; Z79.82 Long term (current) use of aspirin; W22.09XA Striking against other stationary object, initial encounter; Z87.891 Personal history of nicotine dependence
CPT/HCPCS: 36415; 73610; 80048; 85025; 93971; 99284

== ENCOUNTER 2021-01-17 09:02 | Observation (INO) | payer OTHER, SELFPAY ==
[2021-01-17] VITALS (8 sets, daily range): BP systolic 160–196; BP diastolic 78–106; PULSE 60–82; RESP 16–22; TEMP 36.4–36.9; O2SAT 99–100
--- NOTE | ~2021-01-17 | US_ITS ---
EXAMINATION: US venous doppler [facility] DATE: 01/17/2021 11:14 INDICATION: Left lower limb swelling. TECHNIQUE: Grayscale ultrasound images without and with compression and Doppler ultrasound images of the left lower extremity veins were obtained. COMPARISON: Ultrasound 12/27/2020 FINDINGS: The visualized portions of left common femoral vein, profunda (deep) femoral vein, femoral vein, popl iteal vein, peroneal veins, posterior tibial veins, and greater saphenous vein outflow are patent. IMPRESSION: 1. No deep venous thrombosis. Reviewed, dictated and finalized at location A.
[2021-01-17] MEDS: ceFAZolin 2 GM/D5W 50 ML 2 GM/50 ML BAG IVPB ×2 (09:53→17:43)
[2021-01-17 09:58] LABS: Basophils Absolute Auto 0.1 K/mm3 (0.0-0.1); Basophils Percent Auto 0.8 % (0.2-1.2); Eosinophils Absolute Auto 0.2 K/mm3 (0-0.3); Eosinophils Percent Auto 2.8 % (0-4.4); Hematocrit 34.9 % (42.0-52.0); Hemoglobin 11.6 g/dL (14.0-18.0); Immature Granulocyte Absolute 0.02 K/mm3 (0.00-0.031); Immature Granulocyte Percent A 0.3 % (0-0.5); Lymphocytes Absolute Auto 2.52 K/mm3 (0.9-3.2); Lymphocytes Percent Auto 34.1 % (18.3-44.2); Mean Corpuscular HGB Conc 33.2 g/dl (32-36); Mean Corpuscular Hemoglobin 29.1 pg (26-34); Mean Corpuscular Volume 87.5 fl (80-100); Mean Platelet Volume 12.2 fl (7.4-10.4); Monocytes Absolute Auto 0.9 K/mm3 (0.1-0.6); Monocytes Percent Auto 11.5 % (2.6-8.5); Neutrophils Absolute Auto 3.7 K/mm3 (1.3-6.7); Neutrophils Percent Auto 50.5 % (45.5-73.1); Platelet Count Result 145 k/mm3 (150-375); Red Blood Count 3.99 M/mm3 (4.6-6.20); Red Cell Distribution Width 14.2 % (11.5-14.5); White Blood Count 7.4 K/mm3 (4.5-10.0)
[2021-01-17 10:17] LABS: Anion Gap 9 mmol/L (8-16); Blood Urea Nitrogen 13 mg/dL (9-20); Calcium 9.2 mg/dL (8.4-10.2); Carbon Dioxide 26 mmol/L (22-30); Chloride 103 mmol/L (98-107); Estimated CRCL calculation 103 ml/min; Estimated Glomerular Filt Rate > 60; Glucose 117 mg/dL (65-110); Potassium 3.9 mmol/L (3.4-5.0); Sodium 138 mmol/L (137-145)
--- NOTE | 2021-01-17 10:25 | ED.GENADULT ---
HPI - General Adult General Chief complaint: Unspecified Stated complaint: abdominal pain, leg swelling Time Seen by Provider: 01/17/21 09:27 Source: patient Mode of arrival: ambulatory Limitations: clinical condition History of Present Illness HPI narrative: 55-year-old male Somewhat poor historian because he has dysarthria and aphasia from an old stroke He has 2 complaints today First is a lump or knot in his upper abdomen He is unclear on exactly how long it has been present and it is not especially painful or bothersome, but he has been more aware of it recently apparently He had an umbilical hernia repaired 2 years ago, this area is in the midline and superior to that repair Additionally he complains of swelling in his legs It is actually pretty much completely confined to just his left leg and has been present for at least 3 weeks He was seen here then, noted to have a small wound to his lower leg and edema, and had a negative DVT study at that time It sounds like he may have visited an urgent care at some point which suggest that he might have a blood clot that could travel to his lungs which it sounds like is what actually prompted his visit to the ED today Her left leg is a little sore, he has not had a fever Related Data Home Medications Medication Instructions Recorded Confirmed aspirin 81 mg chewable tablet 81 mg PO DAILY 09/22/20 11/09/20 baclofen 10 mg tablet 10 mg PO BID 09/22/20 11/10/20 clonidine HCl 0.1 mg tablet 0.1 mg PO BID 09/22/20 11/09/20 fenofibrate nanocrystallized 145 145 mg PO DAILY 09/22/20 11/09/20 mg tablet ferrous sulfate 325 mg (65 mg 325 mg PO BID 09/22/20 11/09/20 iron) tablet folic acid 1 mg tablet 1 mg PO DAILY 09/22/20 11/09/20 gabapentin 300 mg capsule 600 mg PO TID 09/22/20 11/09/20 losartan 100 1 tablet PO DAILY 09/22/20 11/09/20 mg-hydrochlorothiazide 12.5 mg tablet omeprazole 40 mg capsule,delayed 40 mg PO DAILY 09/22/20 11/09/20 release tramadol 50 mg tablet 50 mg PO Q6H PRN 09/22/20 11/09/20 docusate sodium [Colace] 100 mg PO BID PRN 11/09/20 11/09/20 phenytoin sodium extended 100 mg PO TID 11/09/20 11/09/20 [Dilantin Extended] baclofen 20 mg PO PRN PRN 11/10/20 11/10/20 Allergies Allergy/AdvReac Type Severity Reaction Status Date / Time No Known Allergies Allergy Verified 12/27/20 09:11 Review of Systems Review of Systems: All systems reviewed & are unremarkable except as noted in HPI and below Constitutional: Constitutional: Reports no additional constitutional complaints, Denies chills, Denies fever(s) and Denies headache(s) Eyes: Eyes: Reports no additional eye complaints and Denies change in vision ENT: Denies headache(s) and Denies sore throat Cardiovascular: Cardiovascular: Denies chest pain and Denies dyspnea Respiratory: Respiratory: Denies cough and Denies dyspnea Gastrointestinal: Gastrointestinal: Reports abdominal pain, Denies diarrhea and Denies vomiting Genitourinary: Genitourinary: Denies dysuria and Denies urinary frequency Musculoskeletal: Musculoskeletal: Denies deformity, Denies arthralgias, Denies joint swelling and Denies numbness Integumentary/Breasts: Skin/Breast: Denies rash and Denies wounds Neurologic: Denies headache(s), Denies focal weakness and Denies numbness Psychiatric: Psychiatric: Reports no additional psychiatric complaints Endocrine: Endocrine: Reports no additional endocrine complaints Hematologic/Lymphatic: Hematologic/Lymphatic: Reports no additional hematologic/lymphatic complaints Allergic/Immunologic: Allergic/Immunologic: Reports no additional allergic/immunologic complaints PMFSH Past Medical History Medical History Cerebrovascular accident Residual right-sided weakness and dysarthria. Chronic anemia Deep venous thrombosis Dyslipidemia Hypertension Seizure disorder Surgical History Surgical History (Reviewed 01/17/21 @ 10
[2021-01-17 10:38] LABS: D Dimer 0.77 ug/mL (<0.48)
--- NOTE | 2021-01-17 13:00 | PM.IMHP ---
H&P: HPI History of Present Illness Date/Time: 01/17/21 13:00 Chief Complaint: Left leg discomfort and swelling. Narrative: This is a very pleasant 55-year-old male with history of stroke, hypertension, and dyslipidemia who presented to the emergency department earlier today from home for evaluation of left leg discomfort and swelling. Several weeks ago he bumped his left lower leg on a nearby object while walking which caused a small wound. Shortly thereafter he developed increasing swelling in his left leg from baseline and he was seen in the emergency department on 12/27/2020. At that time there was no evidence of active infection and venous Doppler ultrasound of the left lower leg showed no evidence of DVT. Since that time he has been wearing compression socks to help with his dependent edema however the swelling in his left leg has gotten worse and more recently he has developed erythema and discomfort in the leg. Venous Doppler ultrasound was repeated today and was again negative for DVT. Patient was diagnosed with left leg cellulitis and he is being admitted in this setting. At the time my evaluation he has no specific complaints and specifically denies fever, chills, sweats, nausea, vomiting, and history of MRSA. Review of Systems Review of Systems: Twelve systems were reviewed with pertinent positives and negatives as per HPI. No fever, chills couple of sweats. No recent cold or flu symptoms. He denies COVID exposure. No cough or shortness of breath. Denies abdominal pain. He has noticed an area above his umbilicus that he describes as a ?knot? which seems to be consistent with ventral hernia or diastasis recti. He has not had any pain in this area. He has not had nausea, vomiting, or diarrhea. No dysuria. Except as documented, all other systems were reviewed and are negative. [facility] Past Medical History Medical History Cerebrovascular accident Residual right-sided weakness and dysarthria. Chronic anemia Deep venous thrombosis Dyslipidemia Hypertension Seizure disorder Surgical History Surgical History History of excision of lesion History of orthopedic surgery Repair of right arm fracture. History of right inguinal hernia repair (11/13/18) History of umbilical hernia repair (11/13/18) Family History Family History Sibling Diabetes mellitus Social History Social History (Updated 01/17/21 @ 17:49 by Adian Pham PA-C) Social History: The patient lives alone in [place]. He is not and has no children. He is on disability since his stroke in 2003. Former smoker. No alcohol or illicit substance abuse. His niece, Cruz Vyas, is his healthcare power of employment law attorney. Code status: Full code. Meds Home Medications and Allergies Home Medications Medication Instructions Recorded Confirmed Type aspirin 81 mg chewable tablet 81 mg PO DAILY 09/22/20 01/17/21 History baclofen 10 mg tablet 10 mg PO BID 09/22/20 01/17/21 History clonidine HCl 0.1 mg tablet 0.1 mg PO BID 09/22/20 01/17/21 History fenofibrate nanocrystallized 145 145 mg PO DAILY 09/22/20 01/17/21 History mg tablet ferrous sulfate 325 mg (65 mg 325 mg PO BID 09/22/20 01/17/21 History iron) tablet folic acid 1 mg tablet 2 mg PO DAILY 09/22/20 01/17/21 History gabapentin 300 mg capsule 600 mg PO TID 09/22/20 01/17/21 History losartan 100 1 tablet PO DAILY 09/22/20 01/17/21 History mg-hydrochlorothiazide 12.5 mg tablet omeprazole 40 mg capsule,delayed 40 mg PO DAILY 09/22/20 01/17/21 History release tramadol 50 mg tablet 50 mg PO Q6H PRN 09/22/20 01/17/21 History docusate sodium [Colace] 100 mg PO BID PRN 11/09/20 01/17/21 History phenytoin sodium extended 300 mg PO TID 11/09/20 01/17/21 History [Dilantin Extended] baclofen 20 mg PO PRN PRN 11/10/20 01/17/21
[2021-01-17] MEDS: ACETAMINOPHEN 325 MG TABLET 650 MG PO (16:31)
--- NOTE | 2021-01-17 16:40 | ADMGEN ---
This patient, Jose Vyas, was admitted to 3 Med Surg Room 322-02. Patient/family oriented to hospital policies and general routines including ID bracelet, bed and alarms, visiting hours, pain management, procedures, bathroom and other care routines, personal items, smoking policy, room service/diet, and visiting hours. Information on how to activate the Rapid Response Team has been discussed. Patient/Family are encouraged to report perceived risks to care and to ask questions if they do not understand what they are told or what they should do.
[2021-01-17] MEDS: cloNIDine HCL 0.1 MG TABLET PO (20:00)
[2021-01-17] MEDS: GABAPENTIN 300 MG CAPSULE 600 MG PO (20:01)
[2021-01-17] MEDS: FERROUS SULFATE 324 MG TABLET PO (20:01)
[2021-01-17] MEDS: ENOXAPARIN 40 MG/0.4 ML SYRINGE SUB-Q (20:19)
[2021-01-17] MEDS: BACLOFEN 10 MG TABLET PO (20:20)
[2021-01-17] MEDS: PANTOPRAZOLE 40 MG TABLET PO (20:20)
[2021-01-17] MEDS: PHENYTOIN SODIUM 100 MG CAP 300 MG PO (20:21)
[2021-01-18] VITALS (7 sets, daily range): BP systolic 135–165; BP diastolic 82–94; PULSE 65–69; RESP 18–20; TEMP 36.4–36.9; O2SAT 98–100
[2021-01-18] MEDS: ceFAZolin 2 GM/D5W 50 ML 2 GM/50 ML BAG IVPB ×3 (02:41→20:06)
[2021-01-18 06:45] LABS: Hematocrit 40.4 % (42.0-52.0); Hemoglobin 13.2 g/dL (14.0-18.0); Mean Corpuscular HGB Conc 32.7 g/dl (32-36); Mean Corpuscular Hemoglobin 29.4 pg (26-34); Mean Platelet Volume 12.8 fl (7.4-10.4); Platelet Count Result 133 k/mm3 (150-375); Red Blood Count 4.49 M/mm3 (4.6-6.20); Red Cell Distribution Width 14.6 % (11.5-14.5); White Blood Count 6.2 K/mm3 (4.5-10.0)
[2021-01-18 06:54] LABS: Phenytoin Dilantin 13 ug/mL (10-20)
[2021-01-18 06:59] LABS: Alanine Aminotransferase 20 U/L (4-50); Albumin Level 4.6 g/dL (3.5-5.1); Alkaline Phosphatase 54 U/L (38-126); Anion Gap 9 mmol/L (8-16); Aspartate Amino Transferase 35 U/L (17-59); Bilirubin,Total 0.3 mg/dL (0.2-1.3); Blood Urea Nitrogen 13 mg/dL (9-20); Calcium 9.6 mg/dL (8.4-10.2); Carbon Dioxide 28 mmol/L (22-30); Chloride 103 mmol/L (98-107); Estimated CRCL calculation 105 ml/min; Estimated Glomerular Filt Rate > 60; Glucose 102 mg/dL (65-110); Magnesium 1.8 mg/dL (1.6-2.3); Potassium 4.5 mmol/L (3.4-5.0); Sodium 140 mmol/L (137-145)
[2021-01-18] MEDS: PHENYTOIN SODIUM 100 MG CAP 300 MG PO ×2 (08:43→20:16)
[2021-01-18] MEDS: ASPIRIN 81 MG CHEWABLE TABLET PO (08:43)
[2021-01-18] MEDS: FENOFIBRATE NANOCRYSTALLIZED 145 MG TABLET PO (08:43)
[2021-01-18] MEDS: GABAPENTIN 300 MG CAPSULE 600 MG PO ×2 (08:43→19:45)
[2021-01-18] MEDS: PANTOPRAZOLE 40 MG TABLET PO ×2 (08:43→20:15)
[2021-01-18] MEDS: cloNIDine HCL 0.1 MG TABLET PO ×2 (08:44→20:16)
[2021-01-18] MEDS: LOSARTAN POTASSIUM 100 MG TABLET PO (08:44)
[2021-01-18] MEDS: BACLOFEN 10 MG TABLET PO ×2 (08:44→20:15)
[2021-01-18] MEDS: FERROUS SULFATE 324 MG TABLET PO ×2 (08:44→19:46)
[2021-01-18] MEDS: hydroCHLOROthiazide 12.5 MG CAPSULE PO (08:44)
[2021-01-18] MEDS: FOLIC ACID 1 MG TABLET 2 MG PO (08:44)
--- NOTE | 2021-01-18 12:28 | PM.IMPN ---
Progress Note: A&P Assessment and Plan (1) Cellulitis of left leg: Code(s): L03.116 - Cellulitis of left lower limb Status: Acute Assessment and Plan: Pt is on iv vancomycin pending wound culture and MRSA swab. (2) Hypertension: Code(s): I10 - Essential (primary) hypertension Status: Chronic Assessment and Plan: Chronic and stable Bp is 165/94 today, cont to watch. (3) Seizure disorder: Code(s): G40.909 - Epilepsy, unspecified, not intractable, without status epilepticus Status: Chronic Assessment and Plan: CHronic and stable cont seizure medications (4) Chronic anemia: Code(s): D64.9 - Anemia, unspecified Status: Chronic Assessment and Plan: Cont to watch (5) Dyslipidemia: Code(s): E78.5 - Hyperlipidemia, unspecified Status: Chronic Assessment and Plan: Chronic and stable Subjective Date/time seen: 01/18/21 12:28 Review of Systems Review of Systems: All systems reviewed & are unremarkable except as noted in HPI and below Exam Narrative: General: A well-developed male sitting up in bed no distress. Respiratory: Lungs are clear to auscultation Cardiovascular: Regular rate and rhythm with S1-S2. Gastrointestinal: Abdomen is soft, nontender, and nondistended Skin: Small open wound above the left medial malleolus small area of localized cellutlis no pus or drainage Extremities: No cyanosis or clubbing. Neurological: Alert. Cranial nerves 2-12 are grossly intact. 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 R sided weakness Psychiatric: Pleasant and cooperative with appropriate mood and affect. Objective Data Vital Signs Vital Signs: Vital Signs - 24 hr 01/17/21 13:34 01/17/21 15:05 01/17/21 15:45 Temperature 36.7 C Pulse Rate 60 70 65 Respiratory Rate 16 17 22 H Blood Pressure 161/90 H 177/91 H 196/106 H Pulse Oximetry 99 99 99 01/17/21 20:00 01/17/21 21:52 01/18/21 01:07 Temperature 36.9 C 36.4 C L Pulse Rate 71 71 65 Respiratory Rate 20 20 18 Blood Pressure 166/90 H 135/82 Pulse Oximetry 99 99 98 01/18/21 05:35 Temperature 36.7 C Pulse Rate 65 Respiratory Rate 18 Blood Pressure 165/94 H Pulse Oximetry 100 Intake/Output Intake/Output: Intake & Output 01/15/21 01/16/21 01/17/21 01/18/21 23:59 23:59 23:59 23:59 Intake Total 840 540 Output Total 875 Balance 840 -335 Meds/Results Medications: Active Medications Generic Name Dose Route Start Last Admin Trade Name Freq PRN Reason Stop Dose Admin Acetaminophen 650 mg 01/17/21 18:00 Acetaminophen 325 Mg Tablet PO Q6H PRN Mild Pain (1-3) or Fever Hydrocodone Bitart/Acetaminophen 1 tab 01/17/21 18:00 Hydrocodone/Acetaminophen (*Crx) 5-325 Mg Tablet PO Q6H PRN Pain Rated 4-6 Aspirin 81 mg 01/18/21 09:00 01/18/21 08:43 Aspirin 81 Mg Chewable Tablet PO 81 mg DAILY EDI Administration Baclofen 10 mg 01/17/21 21:00 01/18/21 08:44 Baclofen 10 Mg Tablet PO 10 mg Q12HR EDI Administration Clonidine HCl 0.1 mg 01/17/21 21:00 01/18/21 08:44 Clonidine Hcl 0.1 Mg Tablet PO 0.1 mg Q12HR EDI Administration Docusate Sodium 100 mg 01/17/21 17:59 Docusate Sodium 100 Mg Capsule PO BID PRN Constipation Enoxaparin Sodium 40 mg 01/17/21 21:00 01/17/21 20:19 Enoxaparin 40 Mg/0.4 Ml Syringe SUB-Q 40 mg HS EDI Administration Fenofibrate 145 mg 01/18/21 09:00 01/18/21 08:43 Fenofibrate Nanocrystallized 145 Mg Tablet PO 145 mg DAILY EDI Administration Ferrous Sulfate 324 mg 01/17/21 17:00 01/18/21 08:44 Ferrous Sulfate 324 Mg Tablet PO 324 mg BIDWM EDI Administration Folic Acid 2 mg 01/18/21 09:00 01/18/21 08:44 Folic Acid 1 Mg Tablet PO 2 mg DAILY EDI Administration Gabapentin 600 mg 01/17/21 17:00 01/18/21 08:43 Gabapentin 300 Mg Capsule PO 600 mg TID EDI Administration Hydrochlorothiazide
[2021-01-18] MEDS: ACETAMINOPHEN 325 MG TABLET 650 MG PO (20:05)
[2021-01-18] MEDS: ENOXAPARIN 40 MG/0.4 ML SYRINGE SUB-Q (20:16)
[2021-01-19] MEDS: ceFAZolin 2 GM/D5W 50 ML 2 GM/50 ML BAG IVPB ×3 (01:53→18:10)
[2021-01-19 05:49] VITALS: BP 147/89; PULSE 68; RESP 20; TEMP 36.7; O2SAT 98
[2021-01-19 07:03] LABS: Estimated CRCL calculation 95 ml/min; Estimated Glomerular Filt Rate > 60
[2021-01-19] MEDS: ASPIRIN 81 MG CHEWABLE TABLET PO (10:33)
[2021-01-19] MEDS: FERROUS SULFATE 324 MG TABLET PO ×2 (10:33→18:07)
[2021-01-19] MEDS: BACLOFEN 10 MG TABLET PO ×2 (10:33→20:25)
[2021-01-19] MEDS: GABAPENTIN 300 MG CAPSULE 600 MG PO ×3 (10:33→18:07)
[2021-01-19] MEDS: FOLIC ACID 1 MG TABLET 2 MG PO (10:33)
[2021-01-19] MEDS: FENOFIBRATE NANOCRYSTALLIZED 145 MG TABLET PO (10:33)
[2021-01-19] MEDS: PANTOPRAZOLE 40 MG TABLET PO ×2 (10:34→20:25)
[2021-01-19] MEDS: PHENYTOIN SODIUM 100 MG CAP 300 MG PO ×2 (10:34→20:25)
[2021-01-19] MEDS: hydroCHLOROthiazide 12.5 MG CAPSULE PO (10:34)
[2021-01-19] MEDS: LOSARTAN POTASSIUM 100 MG TABLET PO (10:35)
[2021-01-19] MEDS: cloNIDine HCL 0.1 MG TABLET PO ×2 (10:35→20:25)
[2021-01-19] MEDS: ACETAMINOPHEN 325 MG TABLET 650 MG PO ×2 (10:41→20:28)
--- NOTE | 2021-01-19 12:43 | PM.IMPN ---
Progress Note: A&P Assessment and Plan (1) Cellulitis of left leg: Code(s): L03.116 - Cellulitis of left lower limb Status: Acute Assessment and Plan: Pt is on iv vancomycin pending wound culture and MRSA swab is negative. Wound improving, cellulitis is improving, hopeful DC ezio (2) Hypertension: Code(s): I10 - Essential (primary) hypertension Status: Chronic Assessment and Plan: Chronic and stable Bp is 165/94 today, cont to watch. (3) Seizure disorder: Code(s): G40.909 - Epilepsy, unspecified, not intractable, without status epilepticus Status: Chronic Assessment and Plan: CHronic and stable cont seizure medications (4) Chronic anemia: Code(s): D64.9 - Anemia, unspecified Status: Chronic Assessment and Plan: Cont to watch (5) Dyslipidemia: Code(s): E78.5 - Hyperlipidemia, unspecified Status: Chronic Assessment and Plan: Chronic and stable Subjective Date/time seen: 01/19/21 12:43 Interval history: 55-year-old male with history of stroke, hypertension, and dyslipidemia who presented to the emergency department earlier today from home for evaluation of left leg discomfort and swelling.Pt is being treated for leg cellulitis. Review of Systems Review of Systems: All systems reviewed & are unremarkable except as noted in HPI and below Exam Narrative: General: A well-developed male sitting up in bed Respiratory: Lungs are clear to auscultation Cardiovascular: Regular rate and rhythm with S1-S2. Gastrointestinal: Abdomen is soft, nontender, and nondistended Skin: Small open wound above the left medial malleolus small area of localized cellulitis no pus or drainage Extremities: No cyanosis or clubbing. Neurological: Alert. Cranial nerves 2-12 are grossly intact. 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 R sided weakness Psychiatric: Pleasant and cooperative with appropriate mood and affect. Objective Data Vital Signs Vital Signs: Vital Signs - 24 hr 01/18/21 14:00 01/18/21 20:00 01/18/21 21:16 Temperature 36.9 C Pulse Rate 69 69 69 Respiratory Rate 18 20 18 Blood Pressure 156/82 H Pulse Oximetry 98 99 98 01/18/21 22:00 01/19/21 05:49 Temperature 36.8 C 36.7 C Pulse Rate 69 68 Respiratory Rate 20 20 Blood Pressure 137/93 H 147/89 H Pulse Oximetry 99 98 Intake/Output Intake/Output: Intake & Output 01/16/21 01/17/21 01/18/21 01/19/21 23:59 23:59 23:59 23:59 Intake Total 840 2770 840 Output Total 2225 1075 Balance 840 545 -235 Meds/Results Medications: Active Medications Generic Name Dose Route Start Last Admin Trade Name Freq PRN Reason Stop Dose Admin Acetaminophen 650 mg 01/17/21 18:00 01/19/21 10:41 Acetaminophen 325 Mg Tablet PO 650 mg Q6H PRN Administration Mild Pain (1-3) or Fever Hydrocodone Bitart/Acetaminophen 1 tab 01/17/21 18:00 Hydrocodone/Acetaminophen (*Crx) 5-325 Mg Tablet PO Q6H PRN Pain Rated 4-6 Aspirin 81 mg 01/18/21 09:00 01/19/21 10:33 Aspirin 81 Mg Chewable Tablet PO 81 mg DAILY EDI Administration Baclofen 10 mg 01/17/21 21:00 01/19/21 10:33 Baclofen 10 Mg Tablet PO 10 mg Q12HR EDI Administration Clonidine HCl 0.1 mg 01/17/21 21:00 01/19/21 10:35 Clonidine Hcl 0.1 Mg Tablet PO 0.1 mg Q12HR EDI Administration Docusate Sodium 100 mg 01/17/21 17:59 Docusate Sodium 100 Mg Capsule PO BID PRN Constipation Enoxaparin Sodium 40 mg 01/17/21 21:00 01/18/21 20:16 Enoxaparin 40 Mg/0.4 Ml Syringe SUB-Q 40 mg HS EDI Administration Fenofibrate 145 mg 01/18/21 09:00 01/19/21 10:33 Fenofibrate Nanocrystallized 145 Mg Tablet PO 145 mg DAILY EDI Administration Ferrous Sulfate 324 mg 01/17/21 17:00 01/19/21 10:33 Ferrous Sulfate 324 Mg Tablet PO 324 mg BIDWM DEI Administration Folic Acid 2 mg 01/18/21 09:00 01/19/21 10:33 Folic Acid 1 Mg Ta
[2021-01-19 14:00] VITALS: BP 173/80; PULSE 72; RESP 16; TEMP 36.4; O2SAT 100
[2021-01-19] MEDS: ENOXAPARIN 40 MG/0.4 ML SYRINGE SUB-Q (20:25)
[2021-01-19 22:00] VITALS: BP 145/78; PULSE 67; RESP 18; TEMP 36.6; O2SAT 68
[2021-01-20 01:26] VITALS: PULSE 65; O2SAT 95
[2021-01-20] MEDS: ceFAZolin 2 GM/D5W 50 ML 2 GM/50 ML BAG IVPB (03:33)
[2021-01-20 05:55] VITALS: BP 146/77; PULSE 64; RESP 18; TEMP 36.4; O2SAT 98
[2021-01-20 08:00] VITALS: PULSE 64; RESP 18; O2SAT 98
[2021-01-20] MEDS: HYDROcodone/acetaminophen (*CRX) 5-325 MG TABLET 1 TAB PO (09:10)
[2021-01-20] MEDS: GABAPENTIN 300 MG CAPSULE 600 MG PO (09:10)
[2021-01-20] MEDS: cloNIDine HCL 0.1 MG TABLET PO (09:11)
[2021-01-20] MEDS: LOSARTAN POTASSIUM 100 MG TABLET PO (09:11)
[2021-01-20] MEDS: hydroCHLOROthiazide 12.5 MG CAPSULE PO (09:11)
[2021-01-20] MEDS: PHENYTOIN SODIUM 100 MG CAP 300 MG PO (09:11)
[2021-01-20] MEDS: FERROUS SULFATE 324 MG TABLET PO (09:11)
[2021-01-20] MEDS: BACLOFEN 10 MG TABLET PO (09:11)
[2021-01-20] MEDS: PANTOPRAZOLE 40 MG TABLET PO (09:11)
[2021-01-20] MEDS: ASPIRIN 81 MG CHEWABLE TABLET PO (09:12)
[2021-01-20] MEDS: FENOFIBRATE NANOCRYSTALLIZED 145 MG TABLET PO (09:12)
[2021-01-20] MEDS: FOLIC ACID 1 MG TABLET 2 MG PO (09:12)
--- NOTE | 2021-01-20 11:18 | PM.DS ---
DS: Admitting Diagnosis Discharge Date 01/20/2021 Admitting Diagnosis Left leg discomfort and swelling. DS: Discharge Diagnosis Discharge Diagnosis (1) Cellulitis of left leg: Code(s): L03.116 - Cellulitis of left lower limb Status: Acute Assessment and Plan: Pt is on iv vancomycin, wound culture is negative and MRSA swab is negative. Wound improving, cellulitis is improving, hopeful DC today on keflex and daily dressing changes. (2) Hypertension: Code(s): I10 - Essential (primary) hypertension Status: Chronic Assessment and Plan: Chronic and stable Bp is 146/77. (3) Seizure disorder: Code(s): G40.909 - Epilepsy, unspecified, not intractable, without status epilepticus Status: Chronic Assessment and Plan: Chronic and stable cont seizure medications (4) Chronic anemia: Code(s): D64.9 - Anemia, unspecified Status: Chronic Assessment and Plan: Cont to watch (5) Dyslipidemia: Code(s): E78.5 - Hyperlipidemia, unspecified Status: Chronic Assessment and Plan: Chronic and stable DS: Summary Hospital Course Hospital Course: 55-year-old male with history of stroke, hypertension, and dyslipidemia who presented to the emergency department earlier today from home for evaluation of left leg discomfort and swelling.Pt is being treated for leg cellulitis. MRSA swab and wound culture are negative. Pt can be dc with oral keflex. Time Spent with Patient Time attestation: Total time spent providing and/or coordinating discharge services:45 minutes on day of discharge Exam Narrative: General: A well-developed male sitting up in bed Respiratory: Lungs are clear to auscultation Cardiovascular: Regular rate and rhythm with S1-S2. Gastrointestinal: Abdomen is soft, nontender, and nondistended Skin: Small open wound above the left medial malleolus small area of localized cellulitis no pus or drainage Extremities: No cyanosis or clubbing. Neurological: Alert. Cranial nerves 2-12 are grossly intact. 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 R sided weakness Psychiatric: Pleasant and cooperative with appropriate mood and affect. Discharge Plan Discharge Attending physician on discharge: Michaelle Castanon Discharging Clinician: Michaelle Castanon Anticipated Discharge Date/Time: 01/20/21 11:16 Patient Disposition: Home, Self-Care Activity: as tolerated Diet: as tolerated Patient Instructions: Antibiotic Form, Pain Management in Older Adults (DC) Stand Alone Forms: General Discharge Information Follow-up/Referrals: Florentin,MORENITA Silver [Primary Care Provider] - Discharge Medications: New cephalexin [Keflex] 750 mg capsule 750 mg PO Q12H Qty: 20 RF: 0 Continued aspirin 81 mg tablet,chewable 81 mg PO DAILY RF: 0 baclofen 10 mg tablet 10 mg PO BID RF: 0 clonidine HCl 0.1 mg tablet 0.1 mg PO BID RF: 0 fenofibrate nanocrystallized 145 mg tablet 145 mg PO DAILY RF: 0 ferrous sulfate [iron] 325 mg (65 mg iron) tablet 325 mg PO BID RF: 0 folic acid 1 mg tablet 2 mg PO DAILY RF: 0 gabapentin 300 mg capsule 600 mg PO TID RF: 0 losartan-hydrochlorothiazide 100-12.5 mg tablet 1 tablet PO DAILY RF: 0 omeprazole 40 mg capsule,delayed release(DR/EC) 40 mg PO DAILY RF: 0 tramadol 50 mg tablet 50 mg PO Q6H PRN (Reason: Pain (Scale Score 4-6)) RF: 0 phenytoin sodium extended [Dilantin Extended] 100 mg Capsule 300 mg PO TID RF: 0 docusate sodium [Colace] 100 mg Capsule 100 mg PO BID PRN (Reason: Constipation) RF: 0 baclofen 10 mg tablet 20 mg PO PRN PRN (Reason: Muscle Pain) RF: 0 Date of admission: 01/17/21 11:21 Primary Care Provider: Florentin,Ken Melendez Admitting Provider: Reggie Quezada Attending physician on admission: Reggie Quezada Condition: Stable
== END 2021-01-20 14:05 | disposition home or self-care (01) ==
LOC: ANHED 11:20 → ANH3MEDSUR 01-18 11:51
PROVIDERS: Physician Assistant; Admitting Provider Internal Medicine; Emergency Provider Emergency Medicine; PCP Physician Assistant; Visit Provider Family Medicine
DX: L03.116 Cellulitis of left lower limb (principal); M79.89 Other specified soft tissue disorders; D64.9 Anemia, unspecified; E78.5 Hyperlipidemia, unspecified; G40.909 Epilepsy, unspecified, not intractable, without status epilepticus; I10 Essential (primary) hypertension; Z86.73 Personal history of transient ischemic attack (TIA), and cerebral infarction without residual deficits
CPT/HCPCS: 36415; 80048; 80053; 80185; 80202; 82565; 83735; 84443; 85025; 85027; 85380; 87070; 87081; 87205; 93971; 96365; 96366; 96367; 96372; 96374; 96375; 99285; A9270; G0378; G0379; J0690; J1650; J3370

== ENCOUNTER 2021-12-13 10:29 | Emergency (ER) | payer OTHER, SELFPAY ==
--- NOTE | ~2021-12-13 | CT_ITS ---
EXAMINATION: CT brain wo con DATE: 12/13/2021 11:27 INDICATION: Stroke with right-sided headache TECHNIQUE: Computed tomography (CT) of the head was performed without intravenous contrast. Sagittal and coronal reconstructions were performed. The mA was adjusted according to patient size. Iterative reconstruction technique was employed. The dose-length product was 605.33 mGy-cm. COMPARISON: head CT dated 11/09/2020 and brain MR dated 11/10/2020 FINDINGS: No acute intracranial hemorrhage, acute infarction or abnormal extra axial fluid collection. Ventricl es are normal and symmetric. No mass/mass effect. Unchanged tiny dystrophic calcification at the left basal ganglia. The orbits, paranasal sinuses and mastoid air cells are normal. IMPRESSION: 1. No acute intracranial process. Reviewed, dictated and finalized at location A.
--- NOTE | ~2021-12-13 | XR_ITS ---
EXAMINATION: XR knee RT 3V DATE: 12/13/2021 12:03 INDICATION: Right knee pain. TECHNIQUE: 3 views of right knee were obtained. COMPARISON: Right knee radiographs 05/24/2017 FINDINGS: Bone alignment is normal. No fracture. There is mild tricompartmental osteoarthritis. No kn ee joint effusion. IMPRESSION: 1. Mild right knee osteoarthritis. Reviewed, dictated and finalized at location A.
--- NOTE | ~2021-12-13 | US_ITS ---
EXAMINATION: US venous doppler LE RT DATE: 12/13/2021 12:37 INDICATION: Right lower limb pain and swelling TECHNIQUE: Grayscale ultrasound images without and with compression and Doppler ultrasound images of the right lower extremity veins were obtained. COMPARISON: None. FINDINGS: The visualized portions of right common femoral vein, profunda (deep) femoral vein, femoral vein, pop liteal vein, peroneal trunk, posterior tibial veins, peroneal veins, gastrocnemius vein and greater s aphenous vein outflow are patent. IMPRESSION: 1. No deep venous thrombosis in the right lower limb. Reviewed, dictated and finalized at location A.
--- NOTE | ~2021-12-13 | XR_ITS ---
EXAMINATION: XR chest 2V DATE: 12/13/2021 14:15 INDICATION: Weakness TECHNIQUE: AP and lateral views of the chest are obtained. COMPARISON: 11/01/2020 FINDINGS: The lungs are free of acute opacities. No pleural effusion or pneumothorax. The cardiomedia stinal silhouette is normal. There is mild thoracic spondylosis. IMPRESSION: 1. No acute cardiopulmonary abnormality. Reviewed, dictated and finalized at location A.
[2021-12-13 11:04] VITALS: BP 181/77; PULSE 78; RESP 16; TEMP 36.7; O2SAT 100
[2021-12-13 11:09] VITALS: PULSE 82
--- NOTE | 2021-12-13 11:10 | ECG_ITS ---
Measurements Intervals [place] Rate: 75 P: 38 NH: 182 QRS: -32 QRSD: 111 T: 39 QT: 378 QTc: 423 Interpretive Statements SINUS RHYTHM MARKED LEFT AXIS DEVIATION [QRS AXIS < -30] INCOMPLETE RIGHT BUNDLE BRANCH BLOCK [90+ ms QRS DURATION, TERMINAL R IN V1/V2, 40+ ms S IN I/aVL/V4/V5/V6] NONSPECIFIC T-WAVE ABNORMALITY COMPARED TO ECG 11/09/2020 09:07:45 T-WAVE ABNORMALITY NOW PRESENT Electronically Signed On 12-13-2021 19:59:00 CDT by Meenakshi Javier M.D.
--- NOTE | 2021-12-13 11:10 | ED.GENADULT ---
HPI - General Adult General Chief complaint: Weakness <Elba Whitehead PA-C - Last Filed: 12/13/21 18:29> Stated complaint: rt knee swelling, araya, bp elevated, gen weakness <Elba Whitehead PA-C - Last Filed: 12/13/21 18:29> Time Seen by Provider: 12/13/21 10:58 <Elba Whitehead PA-C - Last Filed: 12/13/21 18:29> History of Present Illness HPI narrative: Patient is a 56-year-old male with a history of CVA with residual right-sided weakness and dysarthria, hypertension, here for evaluation of headache for the past week. Patient states that headache is along his left frontal area and is relieved by Tylenol. Notes he has never had a headache like this in the past. He denies any visual changes, neck pain or fevers. Additionally notes that he has had trouble controlling his blood pressures at home, they have been in the 180s systolic at home despite compliance with his antihypertensives. He is also felt generally weak over the past week, and has been having some acute on chronic atraumatic right knee pain. No unilateral weakness, paresthesias, fevers, chills, dysuria, urgency, frequency, back pain, cough. <Elba Whitehead PA-C - Last Filed: 12/13/21 18:29> Related Data Home medications: Home Medications Medication Instructions Recorded Confirmed aspirin 81 mg chewable tablet 81 mg PO DAILY 09/22/20 01/17/21 baclofen 10 mg tablet 10 mg PO BID 09/22/20 01/17/21 clonidine HCl 0.1 mg tablet 0.1 mg PO BID 09/22/20 01/17/21 fenofibrate nanocrystallized 145 145 mg PO DAILY 09/22/20 01/17/21 mg tablet ferrous sulfate 325 mg (65 mg 325 mg PO BID 09/22/20 01/17/21 iron) tablet (iron) folic acid 1 mg tablet 2 mg PO DAILY 09/22/20 01/17/21 gabapentin 300 mg capsule 600 mg PO TID 09/22/20 01/17/21 losartan 100 1 tablet PO DAILY 09/22/20 01/17/21 mg-hydrochlorothiazide 12.5 mg tablet omeprazole 40 mg capsule,delayed 40 mg PO DAILY 09/22/20 01/17/21 release tramadol 50 mg tablet 50 mg PO Q6H PRN Pain (Scale Score 09/22/20 01/17/21 4-6) docusate sodium 100 mg capsule 100 mg PO BID PRN Constipation 11/09/20 01/17/21 (Colace) phenytoin sodium extended 100 mg 300 mg PO TID 11/09/20 01/17/21 capsule (Dilantin Extended) baclofen 10 mg tablet 20 mg PO PRN PRN Muscle Pain 11/10/20 01/17/21 <Elba Whitehead PA-C - Last Filed: 12/13/21 18:29> Allergies/adverse reactions: Allergies Allergy/AdvReac Type Severity Reaction Status Date / Time No Known Allergies Allergy Verified 12/13/21 11:30 <Elba Whitehead PA-C - Last Filed: 12/13/21 18:29> Review of Systems Review of Systems: Gen: Reports weakness. Denies fevers or chills Eyes: Denies eye pain or visual change ENT: Denies congestion Respiratory: Denies shortness of breath or cough CV: Denies chest pain or palpitations GI: Denies abdominal pain nausea, emesis or diarrhea : denies burning, urgency, frequency or hematuria Musculoskeletal: Reports right knee pain. Denies back pain or muscle pain Neuro: Reports headaches. Denies numbness, tingling, weakness or focal weakness Skin: Denies rash Except as documented, all other systems reviewed and negative <Elba Whitehead PA-C - Last Filed: 12/13/21 18:29> [facility] Past Medical History Medical History: Medical History Cerebrovascular accident Residual right-sided weakness and dysarthria. Chronic anemia Deep venous thrombosis Dyslipidemia Hypertension Seizure disorder <Elba Whitehead PA-C - Last Filed: 12/13/21 18:29> Surgical History Surgical History: Surgical History History of excision of lesion History of orthopedic surgery Repair of right arm fracture. History of right inguinal hernia repair (11/13/18) History of umbilical hernia repair (11/13/18) <Elba Whitehead PA-C - Last
[2021-12-13 11:35] LABS: Alanine Aminotransferase 20 U/L (6-50); Albumin Level 4.5 g/dL (3.5-5.1); Alkaline Phosphatase 59 U/L (38-126); Anion Gap 6 mmol/L (8-16); Aspartate Amino Transferase 31 U/L (17-59); Basophils Absolute Auto 0.1 K/mm3 (0.0-0.1); Basophils Percent Auto 0.6 % (0.2-1.2); Bilirubin,Total 0.3 mg/dL (0.2-1.3); Blood Urea Nitrogen 15 mg/dL (9-20); Calcium 9.2 mg/dL (8.4-10.2); Carbon Dioxide 26 mmol/L (22-30); Chloride 101 mmol/L (98-107); Eosinophils Absolute Auto 0.1 K/mm3 (0-0.3); Eosinophils Percent Auto 0.6 % (0-4.4); Estimated CRCL calculation 92 ml/min; Estimated Glomerular Filt Rate > 60; Glucose 115 mg/dL (65-110); Hematocrit 37.2 % (42.0-52.0); Hemoglobin 12.1 g/dL (14.0-18.0); Immature Granulocyte Absolute 0.03 K/mm3 (0.00-0.031); Immature Granulocyte Percent A 0.3 % (0-0.5); Lymphocytes Percent Auto 20.3 % (18.3-44.2); Mean Corpuscular HGB Conc 32.5 g/dl (32-36); Mean Corpuscular Hemoglobin 28.6 pg (26-34); Mean Corpuscular Volume 87.9 fl (80-100); Mean Platelet Volume 12.3 fl (7.4-10.4); Monocytes Absolute Auto 0.7 K/mm3 (0.1-0.6); Monocytes Percent Auto 6.1 % (2.6-8.5); Neutrophils Absolute Auto 7.8 K/mm3 (1.3-6.7); Neutrophils Percent Auto 72.1 % (45.5-73.1); Platelet Count Result 218 k/mm3 (150-375); Potassium 3.9 mmol/L (3.4-5.0); Red Blood Count 4.23 M/mm3 (4.6-6.20); Red Cell Distribution Width 14.1 % (11.5-14.5); Sodium 133 mmol/L (137-145); White Blood Count 10.8 K/mm3 (4.5-10.0)
[2021-12-13] MEDS: ACETAMINOPHEN 325 MG TABLET 650 MG PO (13:40)
[2021-12-13 14:57] VITALS: BP 166/93; PULSE 78; RESP 18; O2SAT 98
[2021-12-13 15:13] LABS: Troponin I < 0.012 ng/mL (0.000-0.034)
[2021-12-13 15:33] LABS: Appearance Urine Clear (Clear); Bilirubin Urine Negative (Negative); Blood Urine Negative (Negative); Color Urine Yellow (Yellow); Glucose Urine UA Negative (Negative); Ketones Urine Negative (Negative); Leukocyte Esterase Ur Negative LEU/UL (Negative); Nitrate Urine Negative (Negative); Protein Urine 2+ mg/dL (Negative); Urobilinogen Urine 0.2 mg/dL (<2.0)
[2021-12-13 15:37] LABS: Add Urine Microscopic? YES; Mucus Urine Rare /lpf; RBC Urine 0-2 /hpf (0-2); Squamous Epithelial Cell Urine Rare /hpf (Few); WBC Urine 0-3 /hpf
[2021-12-13 16:30] VITALS: BP 173/102; PULSE 66; RESP 15; O2SAT 100
[2021-12-13 16:34] LABS: SARS-CoV-2 RNA PCR Negative
--- NOTE | 2021-12-13 16:56 | PC.NURSE ---
ambulation assessment: pt able to use walker w/out difficulty, no assist needed
[2021-12-13 17:24] VITALS: BP 186/93; PULSE 61; RESP 15; O2SAT 100
[2021-12-13 17:48] VITALS: BP 176/88
== END 2021-12-13 17:49 | disposition home or self-care (01) ==
PROVIDERS: Physician Assistant; Emergency Provider Emergency Medicine; PCP Physician Assistant
DX: R51.9 Headache, unspecified (principal); Z20.822 Contact with and (suspected) exposure to COVID-19; I69.951 Hemiplegia and hemiparesis following unspecified cerebrovascular disease affecting right dominant side; I69.922 Dysarthria following unspecified cerebrovascular disease; G40.919 Epilepsy, unspecified, intractable, without status epilepticus; I10 Essential (primary) hypertension; E78.5 Hyperlipidemia, unspecified; D64.9 Anemia, unspecified; Z86.718 Personal history of other venous thrombosis and embolism; Z87.891 Personal history of nicotine dependence; I45.10 Unspecified right bundle-branch block; R94.31 Abnormal electrocardiogram [ECG] [EKG]; M17.11 Unilateral primary osteoarthritis, right knee
CPT/HCPCS: 36415; 70450; 71046; 73562; 80053; 81001; 84484; 85025; 93005; 93971; 99284; A9270; C9803; U0003; U0005

== ENCOUNTER 2022-12-14 11:01 | Inpatient (IN) | payer OTHER, SELFPAY ==
[2022-12-14] VITALS (14 sets, daily range): BP systolic 175–238; BP diastolic 74–106; PULSE 82–104; RESP 16–20; TEMP 36.4–36.9; O2SAT 93–97; BMI 30.5
--- NOTE | ~2022-12-14 | CT_ITS ---
EXAMINATION: CT abdomen pelvis wo con DATE: 12/20/2022 10:50 INDICATION: Worsening leukocytosis TECHNIQUE: Computed tomography (CT) of the abdomen and pelvis was performed without intravenous contr ast. The dose-length product (DLP) was 1629.46 mGy-cm. Automated exposure control and iterative recon struction technique were employed. COMPARISON: 12/14/2022 FINDINGS: Minimal dependent atelectasis is present in the lung bases. The heart size is normal. There are are trace pleural effusions. Stones are present in the gallbladder which remains mildly distende d. A percutaneous cholecystostomy has been placed. There has been interval development of small fluid collections along the undersurface of liver segment III. The largest measures 4.6 x 1.1 cm. The sple en, pancreas, adrenal glands, and kidneys are unremarkable. No pathologically enlarged abdominal or p elvic lymph nodes are identified. No free intraperitoneal gas or evidence of bowel obstruction. There is a small amount of peritoneal fluid/inflammation in the pelvis near the aortic bifurcation. The ap pendix is normal. IMPRESSION: 1. Interval percutaneous cholecystostomy placement with persistent gallbladder distention. 2. New subhepatic versus subcapsular fluid collections adjacent to liver segment III suspicious for a bscess. Reviewed, dictated and finalized at location L. IMPRESSION: 1. Interval percutaneous cholecystostomy placement with persistent gallbladder distention. 2. New subhepatic versus subcapsular fluid collections adjacent to liver segmen t III suspicious for abscess.
--- NOTE | ~2022-12-14 | MR_ITS ---
EXAMINATION: MR MRCP wo/w con/w 3D wo ind DATE: 12/16/2022 09:25 INDICATION: Acute cholecystitis TECHNIQUE: Magnetic resonance imaging (MRI) of the abdomen was performed without and with intravenous contrast. Sequences included coronal T2-weighted SS-FSE ARC, coronal T2-weighted FS SS-FSE, coronal T2-weighted 2D FS FIESTA, Water:Coronal LAVA-Flex, sagittal T2-weighted SS-FSE ARC, axial SSFSE ARC, axial 3D DualEcho, axial DWI B=600, axial T1-weighted LAVA, FAT:Coronal LAVA-Flex, and coronal in and opposed phase LAVA-Flex. Thick-slab T2-weighted FRFSE-XL images were obtained for magnetic resonance cholangiopancreatography (MRCP). Maximum intensity projection 3-D reconstructions of the volumetric data were created by the technologist. Postcontrast sequences included a time course of axial T1-weig hted LAVA, FAT:Coronal LAVA-Flex, coronal in and opposed phase LAVA-Flex, and Water:Coronal LAVA-Flex . COMPARISON: CT, 12/14/2022 CONTRAST: Multihance, 19 cc FINDINGS: ABDOMEN MRI: The gallbladder is distended and contains stones and sludge. There is wall thickening of the gallbladder and a moderate amount of pericholecystic fluid which tracks into the right pericolic gutter. The liver, spleen, pancreas, and adrenal glands are normal. Cysts of the kidneys measure up to 12 mm on the right. There are no pathologically enlarged abdominal lymph nodes. No abnormal enhanc ement is present after contrast administration. ABDOMEN MRCP: No stones or stricture of the common bile duct. The pancreatic duct is normal in course and caliber. IMPRESSION: 1. Cholelithiasis and gallbladder sludge with acute cholecystitis. 2. No stones or stricture of the common bile duct. Reviewed, dictated and finalized at location A.
--- NOTE | ~2022-12-14 | XR_ITS ---
EXAMINATION: XR chest 2V DATE: 12/19/2022 13:55 INDICATION: Shortness of breath. TECHNIQUE: Frontal and lateral views of the chest were obtained. COMPARISON: Chest single view 12/14/2022 FINDINGS: There is chronic eventration of anterior right hemidiaphragm. There is mild atelectasis in the lower lung zones. No pleural effusion or pneumothorax. The heart size is normal. IMPRESSION: 1. Mild atelectasis in the lower lung zones. 2. Chronic eventration of anterior right hemidiaphragm. Reviewed, dictated and finalized at location A.
--- NOTE | ~2022-12-14 | CT_ITS ---
EXAMINATION: CT abdomen pelvis w con DATE: 12/14/2022 15:29 INDICATION: Right lower quadrant abdominal pain. TECHNIQUE: Computed tomography (CT) of the abdomen and pelvis was performed with 100 mL Omnipaque 350 intravenous contrast. Automated exposure control and iterative reconstruction technique were employe d. The dose-length product was 1293.90 mGy-cm. COMPARISON: CT abdomen and pelvis 10/29/2018, pelvis CT 10/10/2020 FINDINGS: The visualized portions of the lung bases demonstrate mild atelectasis. No pleural effusion . The heart size is normal. There are coronary artery calcifications. No pericardial effusion. The li [place] and spleen are normal. The gallbladder is distended with wall thickening, surrounding fat strandi ng, and gallstones. The pancreas and adrenal glands are normal. There is cortical thinning of the kid neys. There are cysts in the kidneys measuring up to 10 mm on the right. There are likely changes of right inguinal hernia repair. There is diverticulosis of the colon without evidence of diverticulitis . The appendix is normal. There are no pathologically enlarged lymph nodes. There is no free intraper itoneal fluid. There are supraumbilical and umbilical hernias containing fat. There is mild thoracic and lumbar spondylosis. There is mild chronic height loss of multiple thoracic vertebral bodies. IMPRESSION: 1. Acute cholecystitis. Reviewed, dictated and finalized at location E. IMPRESSION: 1. Acute cholecystitis.
--- NOTE | ~2022-12-14 | XR_ITS ---
EXAMINATION: XR chest 1V portable Exam Date/Time: 12/22/2022 21:46 CDT HISTORY: wheezing; HTN, CVA, prev smoker Comparison: 12/19/2022. RESULT: Lines, tubes, and devices: None. Lungs and pleura: Persistent bibasilar scar/atelectasis and right hemidiaphragm elevation. Cardiomediastinal silhouette: Stable. Other: No acute osseous or upper abdominal finding. IMPRESSION: No acute cardiopulmonary process. No significant interval change Reviewed, dictated and finalized at location K.
--- NOTE | ~2022-12-14 | XR_ITS ---
EXAMINATION: XR chest 1V portable DATE: 12/14/2022 14:56 INDICATION: Chest pain. TECHNIQUE: A single frontal view of the chest was obtained. COMPARISON: Chest 2 views 12/13/2021, CT abdomen and pelvis 10/29/2018 FINDINGS: There is chronic eventration of anterior right hemidiaphragm. There is mild atelectasis in the lower lung zones. No pleural effusion or pneumothorax. The heart size is normal. IMPRESSION: 1. Mild atelectasis in the lower lung zones. Reviewed, dictated and finalized at location E.
--- NOTE | ~2022-12-14 | US_ITS ---
Limited Abdominal Sonogram: Real-time sonographic imaging of the right upper quadrant was performed. Clinical History: Cholecystitis Findings: Exam is suboptimal due to patient body habitus. No gross hepatic mass or biliary dilatation seen. Gallbladder is poorly visualized. There is apparent sludge versus mass at the gallbladder. Que stionable gallbladder wall thickening. Common bile duct poorly seen, possibly measuring [address] The pancreas, aorta, and IVC are obscured by bowel gas shadowing. Impression: Limited exam due to bowel gas shadowing/patient body habitus. Possible gallbladder stones/sludge or possible gallbladder mass. Consider MR/MRCP and/or HIDA scan fo r further evaluation for gallbladder pathology given the technical limitations of this ultrasound. Possible gallbladder wall thickening. Superimposed acute cholecystitis cannot be excluded. Again, con credit relationship manager HIDA scan as indicated. Reviewed, dictated and finalized at [facility]. Impression: Limited exam due to bowel gas shadowing/patient body habitus. Possible gallbladder stones/sludge or possible gallbladder mass. Consider MR/MR CP and/or HIDA scan for further evaluation for gallbladder pathology given the technical limitations of this ultrasound. Possible gallbladder wall thickening. Superimposed acute cholecystitis cannot b e excluded. Again, consider HIDA scan as indicated.
--- NOTE | ~2022-12-14 | US_ITS ---
EXAMINATION: US perc cholecystostomy w imag DATE: 12/18/2022 15:53 INDICATION: Acute cholecystitis TECHNIQUE: The procedure including the risks and benefits was discussed with the patient. Risks discu ssed included bleeding including hemorrhage and bile peritonitis. Oral and written consent were obtai yuly. The patient was confirmed to be receiving appropriate antibiotic coverage. The skin overlying t he liver and gallbladder was prepped and draped in usual sterile fashion. Anesthetic was administere d with 1% lidocaine subcutaneously. An 8.5 Fr catheter was inserted through liver parenchyma into the gallbladder by trocar technique. The metal stiffener and trocar needle were removed, and the pigtail tip was locked. Bile was aspirated and sent for culture. The catheter was stitched to the skin with suture. Antibiotic ointment and a sterile dressing were applied. There were no immediate complication s. FINDINGS: The gallbladder is dilated with wall thickening and stones and sludge, consistent with acut e cholecystitis. Ultrasound images demonstrate the catheter within the gallbladder. 120 mL of dark r eddish colored bile was aspirated with 34 mL sent to the lab for Gram stain and aerobic, anaerobic an d fungal cultures. Final images show absence of anechoic fluid in the gallbladder which is now fille d with hyperechoic and shadowing stones which obscured the intraluminal portion of the cholecystostom y tube. IMPRESSION: 1. Successful ultrasound-guided cholecystostomy tube placement. 2. 34 mL bile was sent for aerobic, anaerobic, and fungal cultures. 3. The catheter will be managed by Dr. Tavera. A catheter cholangiogram may be performed not less than 48 hours after tube placement if clinically indicated to assess cystic duct patency. If cholecystec von is not eventually performed and the infectious episode has resolved, the tube may be removed ove r a guidewire, preferably not less than 3 weeks after placement to allow time for a mature catheter t ract to form to prevent bile leakage and peritonitis. Reviewed, dictated and finalized at location A. IMPRESSION: 1. Successful ultrasound-guided cholecystostomy tube placement. 2. 34 mL bile was sent for aerobic, anaerobic, and fungal cultures. 3. The catheter will be managed by Dr. Tavera. A catheter cholangiogram may be p erformed not less than 48 hours after tube placement if clinically indicated to assess cystic duct patency. If cholecystectomy is not eventually performed an d the infectious episode has resolved, the tube may be removed over a guidewire , preferably not less than 3 weeks after placement to allow time for a mature c atheter tract to form to prevent bile leakage and peritonitis.
--- NOTE | ~2022-12-14 | CT_ITS ---
EXAMINATION: CT abdomen w con DATE: 12/24/2022 09:20 INDICATION: Liver abscess. TECHNIQUE: Computed tomography (CT) of the abdomen was performed with 100 mL Omnipaque 350 intravenou s contrast. Automated exposure control and iterative reconstruction technique were employed. The dose -length product was 881.76 mGy-cm. COMPARISON: CT abdomen and pelvis 12/20/2022 FINDINGS: The visualized portions of the lung bases demonstrate mild atelectasis. There is chronic el evation of right hemidiaphragm. The heart size is normal. No pericardial effusion. There is bilateral gynecomastia. The gallbladder is distended with wall thickening, gallstones, and adjacent fat strand ing. There is a percutaneous cholecystostomy tube in expected position. There are abscesses adjacent to left hepatic lobe measuring up to 5.2 x 3.6 x 1.5 cm. There is a small sliding hiatal hernia. The spleen, pancreas, and adrenal glands are normal. There are cysts in the kidneys measuring up to 12 mm on the right. There are no dilated loops of bowel. There is mild gastrohepatic and aortocaval lympha denopathy. There is a supraumbilical ventral hernia containing fat. Partially visualized is fat stran ding in the retroperitoneum at the midline, consistent with inflammation versus edema. There is no fr ee intraperitoneal fluid. There is mild thoracic and lumbar spondylosis. There is mild chronic height loss of multiple thoracic vertebral bodies. IMPRESSION: 1. Acute cholecystitis. Persistent gallbladder distention despite percutaneous cholecystostomy tube i n expected position. 2. Abscesses adjacent to left hepatic lobe, stable from 12/20/22. 3. Mild abdominal lymphadenopathy, likely reactive. Reviewed, dictated and finalized at location A. IMPRESSION: 1. Acute cholecystitis. Persistent gallbladder distention despite percutaneous cholecystostomy tube in expected position. 2. Abscesses adjacent to left hepatic lobe, stable from 12/20/22. 3. Mild abdominal lymphadenopathy, likely reactive.
[2022-12-14 11:27] LABS: Basophils Absolute Auto 0.1 K/mm3 (0.0-0.1); Basophils Percent Auto 0.2 % (0.2-1.2); Hematocrit 40.6 % (42.0-52.0); Hemoglobin 13.7 g/dL (14.0-18.0); Immature Granulocyte Absolute 0.11 K/mm3 (0.00-0.031); Immature Granulocyte Percent A 0.5 % (0-0.5); Immature Platelet Fraction Pct 17.8 % (0.9-11.2); Lymphocytes Absolute Auto 1.38 K/mm3 (0.9-3.2); Lymphocytes Percent Auto 6.4 % (18.3-44.2); Mean Corpuscular HGB Conc 33.7 g/dl (32-36); Mean Corpuscular Hemoglobin 29.1 pg (26-34); Mean Corpuscular Volume 86.2 fl (80-100); Mean Platelet Volume 13.2 fl (7.4-10.4); Monocytes Absolute Auto 2.6 K/mm3 (0.1-0.6); Monocytes Percent Auto 12.3 % (2.6-8.5); Neutrophils Absolute Auto 17.3 K/mm3 (1.3-6.7); Neutrophils Percent Auto 80.6 % (45.5-73.1); Platelet Count Result 171 k/mm3 (150-375); Red Blood Count 4.71 M/mm3 (4.6-6.20); Red Cell Distribution Width 13.9 % (11.5-14.5); White Blood Count 21.5 K/mm3 (4.5-10.0)
[2022-12-14 11:37] LABS: Alanine Aminotransferase 29 U/L (6-50); Albumin Level 4.8 g/dL (3.5-5.1); Alkaline Phosphatase 50 U/L (38-126); Anion Gap 13 mmol/L (8-16); Aspartate Amino Transferase 37 U/L (17-59); Bilirubin,Total 0.9 mg/dL (0.2-1.3); Blood Urea Nitrogen 25 mg/dL (9-20); Calcium 9.8 mg/dL (8.4-10.2); Carbon Dioxide 27 mmol/L (22-30); Chloride 102 mmol/L (98-107); Estimated CRCL calculation 75 ml/min; Estimated Glomerular Filt Rate > 60; Glucose 121 mg/dL (65-110); Lipase 60 U/L (23-300); Potassium 3.5 mmol/L (3.4-5.0); Sodium 142 mmol/L (137-145)
--- NOTE | 2022-12-14 14:25 | ED.ABDPAIN ---
HPI - Abdominal Pain General Chief Complaint: Abdominal Pain Stated Complaint: abdominal pain Time Seen by Provider: 12/14/22 13:49 History of Present Illness HPI narrative: Patient is a 57-year-old male with a history of hypertension, GERD presenting with abdominal pain. Patient states that since last night he has had right lower abdominal pain that radiates into his legs. Associated with nausea and vomiting. States that he is chronically constipated but he did have a normal bowel movement this morning. Reports some mid chest pain since yesterday as well. No fevers or chills, shortness of breath, cough, dysuria, flank pain. States that his urine does look darker than normal. Related Data Home Medications Medication Instructions Recorded Confirmed aspirin 81 mg chewable tablet 81 mg PO DAILY 09/22/20 01/17/21 baclofen 10 mg tablet 10 mg PO BID 09/22/20 01/17/21 clonidine HCl 0.1 mg tablet 0.1 mg PO BID 09/22/20 01/17/21 fenofibrate nanocrystallized 145 145 mg PO DAILY 09/22/20 01/17/21 mg tablet ferrous sulfate 325 mg (65 mg 325 mg PO BID 09/22/20 01/17/21 iron) tablet (iron) folic acid 1 mg tablet 2 mg PO DAILY 09/22/20 01/17/21 gabapentin 300 mg capsule 600 mg PO TID 09/22/20 01/17/21 losartan 100 1 tablet PO DAILY 09/22/20 01/17/21 mg-hydrochlorothiazide 12.5 mg tablet omeprazole 40 mg capsule,delayed 40 mg PO DAILY 09/22/20 01/17/21 release tramadol 50 mg tablet 50 mg PO Q6H PRN Pain (Scale Score 09/22/20 01/17/21 4-6) docusate sodium 100 mg capsule 100 mg PO BID PRN Constipation 11/09/20 01/17/21 (Colace) phenytoin sodium extended 100 mg 300 mg PO TID 11/09/20 01/17/21 capsule (Dilantin Extended) baclofen 10 mg tablet 20 mg PO PRN PRN Muscle Pain 11/10/20 01/17/21 Allergies Allergy/AdvReac Type Severity Reaction Status Date / Time No Known Allergies Allergy Verified 12/14/22 11:09 Review of Systems Review of Systems: All systems reviewed & are unremarkable except as noted in HPI and below PMFSH Past Medical History Medical History Cerebrovascular accident Residual right-sided weakness and dysarthria. Chronic anemia Deep venous thrombosis Dyslipidemia Hypertension Seizure disorder Surgical History Surgical History History of excision of lesion History of orthopedic surgery Repair of right arm fracture. History of right inguinal hernia repair (11/13/18) History of umbilical hernia repair (11/13/18) Family History Family History Sibling Diabetes mellitus Social History Social History Social History: The patient lives alone in [place]. He is not and has no children. He is on disability since his stroke in 2003. Former smoker. No alcohol or illicit substance abuse. His niece, Cruz Vyas, is his healthcare power of corporate attorney. Code status: Full code. Living arrangements: alone Occupation/Education: retired Exam Narrative: GENERAL: Well-appearing, well-nourished, and in no acute distress. Pleasant and cooperative HEAD: Normocephalic, atraumatic. EYES: PERRLA and EOMI. ENT: Nares clear, no rhinorrhea or epistaxis. Mucous membranes moist. NECK: Supple. CHEST: Clear to auscultation. No respiratory distress. HEART: Regular rate and rhythm. ABDOMEN: Soft, + EXTREMITIES: Normal range of motion. No edema. SKIN: Warm, dry, no rash. NEURO: No focal deficits. Alert and oriented x3. PSYCH: Normal mood and affect. Course Vital Signs Vital signs: Vital Signs Temperature 98.4 F 12/14/22 11:05 Pulse Rate 88 12/14/22 11:05 Respiratory Rate 19 12/14/22 11:05 Blood Pressure 193/83 H 12/14/22 11:05 Pulse Oximetry 97 12/14/22 11:05 Oxygen Delivery Room Air 12/14/22 11:05 Temperature 98.4 F 12/14/22 11:0
[2022-12-14] MEDS: SODIUM CHLORIDE 0.9% IV 1,000 ML 999 ML IV CONT (15:09)
[2022-12-14] MEDS: ONDANSETRON INJ 4 MG/2 ML VIAL IV PUSH ×2 (15:10→20:18)
[2022-12-14] MEDS: HYDROmorphone HCL INJ (*CRX) 1 MG/ML SYR 0.5 MG IV PUSH (15:11)
[2022-12-14 15:13] LABS: Lactic Acid Reflex 2.1 mmol/L (0.7-2.0)
[2022-12-14 15:15] LABS: INR 1.1; Prothrombin Time 14.3 Seconds (11.1-14.7)
[2022-12-14 15:16] LABS: Partial Thromboplastin Time 31.3 SECONDS (22.3-36.8)
[2022-12-14 15:32] LABS: Troponin I < 0.012 ng/mL (0.000-0.034)
[2022-12-14 15:41] LABS: Influenza A QL RT-PCR Negative (Negative); Influenza B QL RT-PCR Negative (Negative); SARS-CoV-2 RNA PCR Negative (Negative)
[2022-12-14] MEDS: cefTRIAXone 2 GM/NS 100 ML 2 GM/100 ML BAG IVPB (16:05)
[2022-12-14] MEDS: metroNIDAZOLE 500 MG/ISO 100ML 500 MG/100 ML BAG 100 MG IVPB ×2 (16:05→22:41)
[2022-12-14 17:30] LABS: Appearance Urine Clear (Clear); Bacteria Urine None Seen /hpf; Bilirubin Urine Negative (Negative); Blood Urine Negative (Negative); Color Urine Yellow (Yellow); Glucose Urine UA Negative (Negative); Ketones Urine Negative (Negative); Leukocyte Esterase Ur Negative LEU/UL (Negative); Nitrate Urine Negative (Negative); Non Pathogenic Casts 0-2; Protein Urine 4+ mg/dL (Negative); RBC Urine 0-2 /hpf (0-2); Squamous Epithelial Cell Urine None seen /hpf (Few); Urobilinogen Urine 0.2 mg/dL (<2.0); WBC Urine 0-5 /hpf
[2022-12-14 18:01] LABS: Reflex Lactic Acid Yes or No Add Lactic
--- NOTE | 2022-12-14 18:04 | PM.IMHP ---
H&P: HPI History of Present Illness Date/Time: 12/14/22 18:04 Chief Complaint: Abdominal pain, nausea vomiting Narrative: Patient is a 57-year-old male with past medical history of CVA with right-sided deficit and dysarthria, essential hypertension, GERD, hyperlipidemia, DVT, history of seizure disorder, abdominal hernia who presents to ED with complaints of nausea vomiting. Patient states anything he tried to eat let him to vomit. Nothing alleviated symptoms. He has not had nausea vomiting like this before. He does have and umbilical hernia and a ventral hernia, apparently has had history is of hernias with right inguinal repair in 2019. He still has a gallbladder and appendix. In the ED: Patient is found have leukocytosis WBC 21.5 K, he was given Rocephin and Flagyl antibiotic, 1 L fluid bolus. Abdominal CT scan concerning for acute cholecystitis. General surgery was consulted recommending hospitalist admission. Review of Systems Review of Systems: Constitutional: No Fever, No Chills, No Night Sweats, No Fatigue, No Malaise ENT/Mouth: No Hearing Changes, No Ear Pain, No Nasal Congestion, No Sinus Pain, No Hoarseness, No sore throat, No Rhinorrhea, No Swallowing Difficulty Eyes: No Eye Pain, No Redness, No Vision Changes Cardiovascular: No Chest Pain, No Palpitations, No Dyspnea on Exertion, No Orthopnea, No Claudication, No Edema Respiratory: No Cough, No Sputum, No Wheezing, No Shortness of Breath Gastrointestinal: Endorses nausea, vomiting, abdominal pain, distended abdomen Genitourinary: No Dysuria, No Urinary Frequency, No Hematuria, No Urinary Incontinence, No Urgency Musculoskeletal: No Arthralgias, No Myalgias, No Joint Swelling, No Joint Stiffness, No Back Pain Skin: No Skin Lesions, No Pruritis, No Hair Changes Neuro: No Weakness, No Numbness, No Paresthesias, No Loss of Consciousness, No Syncope, No Dizziness, No Headache Psych: No Anxiety/Panic, No Depression, No Insomnia Heme: No Bruising, No Bleeding Lymph: No Adenopathy Endocrine: No Polyuria, No Polydipsia, No Temperature Intolerance PMFSH Past Medical History Medical History Cerebrovascular accident Residual right-sided weakness and dysarthria. Chronic anemia Deep venous thrombosis Dyslipidemia Hypertension Seizure disorder Surgical History Surgical History History of excision of lesion History of orthopedic surgery Repair of right arm fracture. History of right inguinal hernia repair (11/13/18) History of umbilical hernia repair (11/13/18) Family History Family History Sibling Diabetes mellitus Social History Social History Social History: The patient lives alone in [place]. He is not and has no children. He is on disability since his stroke in 2003. Former smoker. No alcohol or illicit substance abuse. His niece, Cruz Vyas, is his healthcare power of hot saw operator. Code status: Full code. Living arrangements: alone Occupation/Education: retired Meds Home Medications and Allergies Home Medications Medication Instructions Recorded Confirmed Type aspirin 81 mg chewable tablet 81 mg PO DAILY 09/22/20 01/17/21 History baclofen 10 mg tablet 10 mg PO BID 09/22/20 01/17/21 History clonidine HCl 0.1 mg tablet 0.1 mg PO BID 09/22/20 01/17/21 History fenofibrate nanocrystallized 145 145 mg PO DAILY 09/22/20 01/17/21 History mg tablet ferrous sulfate 325 mg (65 mg 325 mg PO BID 09/22/20 01/17/21 History iron) tablet (iron) folic acid 1 mg tablet 2 mg PO DAILY 09/22/20 01/17/21 History gabapentin 300 mg capsule 600 mg PO TID 09/22/20 01/17/21 History losartan 100 1 tablet PO DAILY 09/22/20 01/17/21 History mg-hydrochlorothiazide 12.5 mg tablet omeprazole 40 mg capsule,de
[2022-12-14 18:10] LABS: Specific Grav Ur 1.066 (1.001-1.035)
[2022-12-14 18:15] LABS: Add Urine Microscopic? YES
[2022-12-14 19:45] LABS: Troponin I < 0.012 ng/mL (0.000-0.034)
[2022-12-14] MEDS: MORPHINE SULFATE (*CRX) 2 MG/ML INJ IV PUSH (20:17)
[2022-12-14] MEDS: hydrALAZINE HCL 20 MG/ML VIAL 10 MG IV PUSH (20:17)
[2022-12-14] MEDS: LACTATED RINGERS 1,000 ML 100 ML IV CONT (20:18)
--- NOTE | 2022-12-14 20:38 | ADMGEN ---
This patient, Jose Vyas, was admitted to 3 Med Surg Room 312-01. Patient/family oriented to hospital policies and general routines including ID bracelet, bed and alarms, visiting hours, pain management, procedures, bathroom and other care routines, personal items, smoking policy, room service/diet, and visiting hours. Information on how to activate the Rapid Response Team has been discussed. Patient/Family are encouraged to report perceived risks to care and to ask questions if they do not understand what they are told or what they should do.
[2022-12-14] MEDS: amLODIPine BESYLATE 5 MG TABLET 10 MG PO (21:34)
[2022-12-14] MEDS: cloNIDine HCL 0.1 MG TABLET PO (21:34)
[2022-12-14] MEDS: BACLOFEN 10 MG TABLET PO (21:38)
[2022-12-15] MEDS: MORPHINE SULFATE (*CRX) 2 MG/ML INJ IV PUSH (04:58)
[2022-12-15] MEDS: ONDANSETRON INJ 4 MG/2 ML VIAL IV PUSH (04:59)
[2022-12-15] MEDS: metroNIDAZOLE 500 MG/ISO 100ML 500 MG/100 ML BAG 100 MG IVPB ×3 (05:05→17:58)
[2022-12-15 05:19] VITALS: BP 153/81; PULSE 98; RESP 16; TEMP 37.1; O2SAT 94
[2022-12-15 06:19] LABS: Basophils Absolute Auto 0.1 K/mm3 (0.0-0.1); Basophils Percent Auto 0.3 % (0.2-1.2); Hematocrit 40.1 % (42.0-52.0); Hemoglobin 12.8 g/dL (14.0-18.0); Immature Granulocyte Absolute 0.24 K/mm3 (0.00-0.031); Immature Granulocyte Percent A 0.9 % (0-0.5); Lymphocytes Absolute Auto 1.48 K/mm3 (0.9-3.2); Lymphocytes Percent Auto 5.2 % (18.3-44.2); Mean Corpuscular HGB Conc 31.9 g/dl (32-36); Mean Corpuscular Hemoglobin 29.2 pg (26-34); Mean Corpuscular Volume 91.3 fl (80-100); Mean Platelet Volume 12.7 fl (7.4-10.4); Monocytes Percent Auto 10.8 % (2.6-8.5); Neutrophils Absolute Auto 23.4 K/mm3 (1.3-6.7); Neutrophils Percent Auto 82.8 % (45.5-73.1); Platelet Count Result 145 k/mm3 (150-375); Red Blood Count 4.39 M/mm3 (4.6-6.20); Red Cell Distribution Width 14.9 % (11.5-14.5); White Blood Count 28.2 K/mm3 (4.5-10.0)
[2022-12-15 06:25] LABS: Lactic Acid 1.6 mmol/L (0.7-2.0)
[2022-12-15 06:27] LABS: Anion Gap 11 mmol/L (8-16); Blood Urea Nitrogen 29 mg/dL (9-20); Calcium 8.8 mg/dL (8.4-10.2); Carbon Dioxide 26 mmol/L (22-30); Chloride 104 mmol/L (98-107); Estimated CRCL calculation 70 ml/min; Estimated Glomerular Filt Rate > 60; Glucose 117 mg/dL (65-110); Magnesium 1.9 mg/dL (1.6-2.3); Potassium 3.6 mmol/L (3.4-5.0); Sodium 141 mmol/L (137-145)
[2022-12-15 06:42] LABS: Troponin I < 0.012 ng/mL (0.000-0.034)
[2022-12-15 08:22] VITALS: O2SAT 94
[2022-12-15] MEDS: BACLOFEN 10 MG TABLET PO ×2 (09:09→17:58)
[2022-12-15] MEDS: PHENYTOIN SODIUM 100 MG EXTENDED RELEASE CAP 300 MG PO ×2 (09:09→17:58)
[2022-12-15] MEDS: cloNIDine HCL 0.1 MG TABLET PO ×2 (09:09→21:37)
[2022-12-15] MEDS: FOLIC ACID 1 MG TABLET 2 MG PO (09:09)
[2022-12-15] MEDS: FERROUS SULFATE 325 MG TABLET DR BY MOUTH ×2 (09:09→17:57)
[2022-12-15] MEDS: hydroCHLOROthiazide 12.5 MG CAPSULE PO (09:09)
[2022-12-15] MEDS: FENOFIBRATE NANOCRYSTALLIZED 145 MG TABLET PO (09:09)
[2022-12-15] MEDS: PANTOPRAZOLE 40 MG TABLET PO (09:13)
[2022-12-15] MEDS: GABAPENTIN 300 MG CAPSULE 600 MG PO ×3 (09:13→17:58)
[2022-12-15] MEDS: amLODIPine BESYLATE 5 MG TABLET 10 MG PO (09:13)
[2022-12-15] MEDS: LOSARTAN POTASSIUM 100 MG TABLET PO (09:13)
[2022-12-15] MEDS: HYDROcodone/acetaminophen (*CRX) 5-325 MG TABLET 1 TAB PO (09:13)
[2022-12-15] MEDS: LACTATED RINGERS 1,000 ML 100 ML IV CONT (12:14)
[2022-12-15 14:00] VITALS: BP 141/67; PULSE 103; RESP 12; TEMP 36.5; O2SAT 96
--- NOTE | 2022-12-15 14:14 | PM.CNGS ---
Assessment and Plan Assessment and plan (1) Acute cholecystitis: Code(s): K81.0 - Acute cholecystitis Status: Acute Assessment and Plan: will further evaluate with ultrasound, continue IV antibiotics, exam largely benign, patient is a poor surgical candidate and may require cholecystostomy tube if intervention needed History of Present Illness Consult details Consult date: 12/15/22 Reason for consult: abdominal pain Requesting physician: Jhonatan Del Valle DO Narrative: The patient is a 57-year-old male presenting to the emergency department complaining of upper abdominal pain, intractable nausea and vomiting. Of note, the patient has severe aphasia secondary to previous stroke so history is obtained via chart and nursing. Workup in the emergency department, including imaging, is significant for acute cholecystitis. The patient has been subsequently admitted and started on IV antibiotics. On examination today, the patient reports abdominal pain is much improved and he is no longer having nausea. Review of Systems Review of Systems: ROS unobtainable: Yes unobtainable due to medical condition PMFSH Past Medical History Medical History Cerebrovascular accident Residual right-sided weakness and dysarthria. Chronic anemia Deep venous thrombosis Dyslipidemia Hypertension Seizure disorder Surgical History Surgical History History of excision of lesion History of orthopedic surgery Repair of right arm fracture. History of right inguinal hernia repair (11/13/18) History of umbilical hernia repair (11/13/18) Family History Family History Sibling Diabetes mellitus Sibling CAD (coronary artery disease) Social History Social History Social History: The patient lives alone in [place]. He is not and has no children. He is on disability since his stroke in 2003. Former smoker. No alcohol or illicit substance abuse. His niece, Cruz Vyas, is his healthcare power of motor expert. Code status: Full code. Smoking packs per day: 1 Smoking cigarettes per day: 20.0 Years smoked: 5 Smoking pack-years: 5.00 Smoking status: Former smoker Tobacco type: cigarettes Alcohol intake: never Substance use: never Lack of Transportation: No Lack of Food: Never True Current Housing: I Have Housing Concerned About Future Housing: No Difficulty Paying Gas/Electric Bills: No Difficulty Paying for Meds: No Currently Unemployed: No Education: High School Diploma/GED Difficulty w/ Childcare or Family Care: No Living arrangements: alone Occupation/Education: retired Spiritual care concerns: No Meds Home Medications and Allergies Home Medications Medication Instructions Recorded Confirmed Type aspirin 81 mg chewable tablet 81 mg PO DAILY 09/22/20 12/14/22 History baclofen 10 mg tablet 10 mg PO BID 09/22/20 12/14/22 History clonidine HCl 0.1 mg tablet 0.1 mg PO BID 09/22/20 12/14/22 History fenofibrate nanocrystallized 145 145 mg PO DAILY 09/22/20 12/14/22 History mg tablet ferrous sulfate 325 mg (65 mg 325 mg PO BID 09/22/20 12/14/22 History iron) tablet (iron) folic acid 1 mg tablet 2 mg PO DAILY 09/22/20 12/14/22 History gabapentin 300 mg capsule 600 mg PO TID 09/22/20 12/14/22 History losartan 100 1 tablet PO DAILY 09/22/20 12/14/22 History mg-hydrochlorothiazide 12.5 mg tablet omeprazole 40 mg capsule,delayed 40 mg PO DAILY 09/22/20 12/14/22 History release docusate sodium 100 mg capsule 100 mg PO BID PRN Constipation 11/09/20 12/14/22 History (Colace) phenytoin sodium extended 100 mg 300 mg PO BID 11/09/20 12/14/22 History capsule (Dilantin Extended) baclofen 10 mg tablet 20 mg PO PRN PRN Muscle Pain 11/10/20 12/14/22 History
--- NOTE | 2022-12-15 14:52 | PM.IMPN ---
Progress Note: A&P Assessment and Plan (1) Acute cholecystitis: Code(s): K81.0 - Acute cholecystitis Status: Acute Assessment and Plan: Nausea vomiting abdominal pain right upper quadrant consistent with cholecystitis, CT consistent with cholecystitis -general surgery consulted: Plan for cholecystectomy -RUQ US ordered -antibiotics: Continue Rocephin, Flagyl -IV fluids: Continue LR 100 cc/hour maintenance fluids -pain control: Tylenol, [place], morphine -leukocytosis 21,000 and today it is 28,000; continue to trend -LFTs within normal limits -blood cultures pending (2) Hypertension: Code(s): I10 - Essential (primary) hypertension Status: Chronic Assessment and Plan: -elevated blood pressure in the ED up to 200 systolic -continue home medications -p.r.n. hydralazine -on aspirin 81 mg (3) Seizure disorder: Code(s): G40.909 - Epilepsy, unspecified, not intractable, without status epilepticus Status: Chronic Assessment and Plan: Continue phenytoin. Patient should not be on tramadol with seizure disorder. (4) History of CVA (cerebrovascular accident): Code(s): Z86.73 - Personal history of transient ischemic attack (TIA), and cerebral infarction without residual deficits Status: Chronic Assessment and Plan: Right-sided deficits and dysarthria, fenofibrate, statin Subjective Date/time seen: 12/15/22 14:52 Interval history: Patient states that he is having some abdominal discomfort but otherwise doing well. He denies any nausea vomiting. He states that he was vomiting prior to presentation but has not vomited since he arrived to the hospital. General surgery to evaluation would like right upper quadrant ultrasound before making decision on plan. Patient is poor surgical candidate and according to surgery maybe consider cholecystostomy tube if intervention is necessary. His white count continues to rise although he is on broad-spectrum antibiotic therapy. Objective Data Vital Signs Vital Signs: Vital Signs - 24 hr 12/14/22 15:13 12/14/22 15:31 12/14/22 16:31 Temperature Pulse Rate 92 98 96 Respiratory Rate 18 18 19 Blood Pressure 198/89 H 238/89 H 227/105 H Pulse Oximetry 93 94 Oxygen Delivery 12/14/22 16:45 12/14/22 16:57 12/14/22 17:01 Temperature Pulse Rate 94 92 94 Respiratory Rate 20 16 19 Blood Pressure 209/106 H 215/99 H Pulse Oximetry 93 94 93 Oxygen Delivery 12/14/22 17:31 12/14/22 18:01 12/14/22 18:54 Temperature 98.4 F Pulse Rate 98 104 H Respiratory Rate 20 20 Blood Pressure 201/96 H 194/100 H Pulse Oximetry Oxygen Delivery 12/14/22 19:45 12/14/22 21:29 12/14/22 20:16 Temperature 97.6 F 97.6 F Pulse Rate 96 101 H Respiratory Rate 16 18 Blood Pressure 193/96 H 176/74 H Pulse Oximetry 97 97 97 Oxygen Delivery Room Air 12/15/22 05:19 12/15/22 08:22 12/15/22 08:00 Temperature 98.8 F Pulse Rate 98 Respiratory Rate 16 Blood Pressure 153/81 H Pulse Oximetry 94 94 Oxygen Delivery Room Air Room Air 12/15/22 14:00 Temperature 97.7 F Pulse Rate 103 H Respiratory Rate 12 Blood Pressure 141/67 H Pulse Oximetry 96 Oxygen Delivery Intake/Output Intake/Output: Intake & Output 12/12/22 12/13/22 12/14/22 12/15/22 23:59 23:59 23:59 23:59 Intake Total 1300 1150 Output Total 350 Balance 1300 800 Meds/Results Medications: Active Medications Generic Name Dose Route Start Last Admin Trade Name Freq PRN Reason Stop Dose Admin Acetaminophen 650 mg 12/14/22 19:48 Acetaminophen 325 Mg Tablet PO Q4H PRN Mild Pain (1-3) or Fever Hydrocodone Bitart/Acetaminophen 1 tab 12/14/22 19:48 12/15/22 09:13 Hydrocodone/Acetaminophen (*Crx) 5-325 Mg Tablet PO 1 tab Q4H PRN Administration Moderate Pain (4-6) Amlodipine Besylate 10 mg 12/14/22 21:05 12/15/22 09:13 Amlodipine Besylate 5 Mg Tablet
[2022-12-15 22:00] VITALS: BP 145/63; PULSE 107; RESP 13; TEMP 38.1; O2SAT 93
[2022-12-15 22:34] VITALS: TEMP 38.1
[2022-12-15] MEDS: ACETAMINOPHEN 325 MG TABLET 650 MG PO (22:34)
[2022-12-15 23:34] VITALS: TEMP 37.5
[2022-12-16] MEDS: LACTATED RINGERS 1,000 ML 100 ML IV CONT ×2 (00:12→20:08)
[2022-12-16] MEDS: metroNIDAZOLE 500 MG/ISO 100ML 500 MG/100 ML BAG 100 MG IVPB ×5 (00:13→23:32)
[2022-12-16 05:42] VITALS: BP 168/79; PULSE 96; RESP 16; TEMP 37.3; O2SAT 95
[2022-12-16 07:13] LABS: Basophils Percent Auto 0.2 % (0.2-1.2); Hematocrit 36.1 % (42.0-52.0); Hemoglobin 11.2 g/dL (14.0-18.0); Immature Granulocyte Absolute 0.33 K/mm3 (0.00-0.031); Immature Granulocyte Percent A 1.5 % (0-0.5); Immature Platelet Fraction Pct 19.1 % (0.9-11.2); Lymphocytes Absolute Auto 1.49 K/mm3 (0.9-3.2); Lymphocytes Percent Auto 6.8 % (18.3-44.2); Mean Corpuscular Hemoglobin 28.8 pg (26-34); Mean Corpuscular Volume 92.8 fl (80-100); Mean Platelet Volume 13.4 fl (7.4-10.4); Monocytes Absolute Auto 2.2 K/mm3 (0.1-0.6); Neutrophils Absolute Auto 17.8 K/mm3 (1.3-6.7); Neutrophils Percent Auto 81.5 % (45.5-73.1); Platelet Count Result 126 k/mm3 (150-375); Red Blood Count 3.89 M/mm3 (4.6-6.20); Red Cell Distribution Width 15.1 % (11.5-14.5); White Blood Count 21.9 K/mm3 (4.5-10.0)
[2022-12-16 07:22] LABS: Alanine Aminotransferase 21 U/L (6-50); Albumin Level 3.8 g/dL (3.5-5.1); Alkaline Phosphatase 46 U/L (38-126); Anion Gap 12 mmol/L (8-16); Aspartate Amino Transferase 28 U/L (17-59); Bilirubin,Total 2.7 mg/dL (0.2-1.3); Blood Urea Nitrogen 41 mg/dL (9-20); Calcium 8.5 mg/dL (8.4-10.2); Carbon Dioxide 24 mmol/L (22-30); Chloride 102 mmol/L (98-107); Estimated CRCL calculation 51 ml/min; Estimated Glomerular Filt Rate 47; Glucose 104 mg/dL (65-110); Potassium 3.4 mmol/L (3.4-5.0); Sodium 138 mmol/L (137-145)
[2022-12-16] MEDS: ACETAMINOPHEN 325 MG TABLET 650 MG PO ×2 (09:41→20:09)
[2022-12-16] MEDS: PHENYTOIN SODIUM 100 MG EXTENDED RELEASE CAP 300 MG PO ×2 (09:45→17:17)
[2022-12-16] MEDS: amLODIPine BESYLATE 5 MG TABLET 10 MG PO (09:45)
[2022-12-16] MEDS: GABAPENTIN 300 MG CAPSULE 600 MG PO ×3 (09:45→17:18)
[2022-12-16] MEDS: cloNIDine HCL 0.1 MG TABLET PO ×2 (09:45→20:09)
[2022-12-16] MEDS: LOSARTAN POTASSIUM 100 MG TABLET PO (09:45)
[2022-12-16] MEDS: FENOFIBRATE NANOCRYSTALLIZED 145 MG TABLET PO (09:45)
[2022-12-16] MEDS: FOLIC ACID 1 MG TABLET 2 MG PO (09:45)
[2022-12-16] MEDS: BACLOFEN 10 MG TABLET PO ×2 (09:45→17:17)
[2022-12-16] MEDS: FERROUS SULFATE 325 MG TABLET DR BY MOUTH ×2 (09:46→17:18)
[2022-12-16] MEDS: hydroCHLOROthiazide 12.5 MG CAPSULE PO (09:46)
[2022-12-16] MEDS: PANTOPRAZOLE 40 MG TABLET PO (09:46)
--- NOTE | 2022-12-16 10:22 | PM.PNGS ---
Progress Note: A&P Assessment and Plan (1) Acute cholecystitis: Code(s): K81.0 - Acute cholecystitis Status: Acute Assessment and Plan: exam cont to be largely benign, WBC trending down, cont abx, TB increased and MRCP pending, will likely need GI consult Subjective Subjective Date/Time Seen: 12/16/22 10:22 Interval history: no acute issues, beto clears, some mild upper abd pain, bloating Review of Systems Review of Systems: All systems reviewed & are unremarkable except as noted in HPI and below Exam Const: General: cooperative, no acute distress and ill appearing Resp: Auscultation: clear to auscultation bilaterally Cardio: Rate: regular rate Rhythm: regular rhythm GI: Inspection: normal to inspection, distended and obesity GI Palp: Yes abdominal tenderness, Yes Soft to palpation, Yes Tenderness to palpation present (GI), No Guarding due to palpation present (GI) and No Rigid due to palpation Objective Data Vital Signs Vital Signs: Vital Signs - 24 hr 12/15/22 14:00 12/15/22 22:34 12/15/22 22:00 Temperature 36.5 C 38.1 C H 38.1 C H Pulse Rate 103 H 107 H Respiratory Rate 12 13 Blood Pressure 141/67 H 145/63 H Pulse Oximetry 96 93 Oxygen Delivery 12/15/22 20:00 12/15/22 23:34 12/16/22 05:42 Temperature 37.5 C 37.3 C Pulse Rate 96 Respiratory Rate 16 Blood Pressure 168/79 H Pulse Oximetry 95 Oxygen Delivery Room Air Intake/Output Intake/Output: Intake & Output 12/13/22 12/14/22 12/15/22 12/16/22 23:59 23:59 23:59 23:59 Intake Total 1300 2350 950 Output Total 650 750 Balance 1300 1700 200 Meds/Results Medications: Active Medications Generic Name Dose Route Start Last Admin Trade Name Freq PRN Reason Stop Dose Admin Acetaminophen 650 mg 12/14/22 19:48 12/16/22 09:41 Acetaminophen 325 Mg Tablet PO 650 mg Q4H PRN Administration Mild Pain (1-3) or Fever Hydrocodone Bitart/Acetaminophen 1 tab 12/14/22 19:48 12/15/22 09:13 Hydrocodone/Acetaminophen (*Crx) 5-325 Mg Tablet PO 1 tab Q4H PRN Administration Moderate Pain (4-6) Amlodipine Besylate 10 mg 12/14/22 21:05 12/16/22 09:45 Amlodipine Besylate 5 Mg Tablet PO 10 mg QAM EDI Administration Baclofen 10 mg 12/14/22 21:35 12/16/22 09:45 Baclofen 10 Mg Tablet PO 10 mg BID EDI Administration Clonidine HCl 0.1 mg 12/14/22 21:05 12/16/22 09:45 Clonidine Hcl 0.1 Mg Tablet PO 0.1 mg Q12HR EDI Administration Docusate Sodium 100 mg 12/14/22 21:03 Docusate Sodium 100 Mg Capsule PO BID PRN Constipation Fenofibrate 145 mg 12/15/22 09:00 12/16/22 09:45 Fenofibrate Nanocrystallized 145 Mg Tablet PO 145 mg DAILY EDI Administration Ferrous Sulfate 325 mg 12/15/22 09:00 12/16/22 09:46 Ferrous Sulfate [address] BY MOUTH 325 mg BID EDI Administration Folic Acid 2 mg 12/15/22 09:00 12/16/22 09:45 Folic Acid 1 Mg Tablet PO 2 mg DAILY EDI Administration Gabapentin 600 mg 12/15/22 09:00 12/16/22 09:45 Gabapentin 300 Mg Capsule PO 600 mg TID EDI Administration Hydralazine HCl 10 mg 12/14/22 19:49 12/14/22 20:17 Hydralazine Hcl 20 Mg/Ml Vial IV PUSH 10 mg Q8H PRN Administration Blood Pressure - High Hydrochlorothiazide 12.5 mg 12/15/22 09:00 12/16/22 09:46 Hydrochlorothiazide 12.5 Mg Capsule PO 12.5 mg DAILY EDI Administration Lactated Ringer's 1,000 mls @ 100 mls/hr 12/14/22 19:50 12/16/22 00:12 Lr - Lactated Ringers Iv IV CONT 100 mls/hr .Q10H EDI Administration Metronidazole 500 mg in 100 mls @ 100 mls/hr 12/14/22 23:00 12/16/22 06:38 Flagyl 500 Mg/Iso Soln 100 Ml IVPB Infused Q6HR EDI Infusion Ceftriaxone Sodium 1 gm in 50 mls @ 100 mls/hr 12/15/22 09:00 12/16/22 09:45 Rocephin 1 Gm/Ns 50 Ml IVPB 100 mls/hr Q24H EDI Administration Losartan Potassium 100 mg 12/15/22 09:00 12/16/22 09:45 Losartan Potassium
--- NOTE | 2022-12-16 13:18 | PM.IMPN ---
Progress Note: A&P Assessment and Plan (1) Acute cholecystitis: Code(s): K81.0 - Acute cholecystitis Status: Acute Assessment and Plan: Nausea vomiting abdominal pain right upper quadrant consistent with cholecystitis, CT consistent with cholecystitis -general surgery consulted: Plan for cholecystectomy -RUQ US ordered -antibiotics: Continue Rocephin, Flagyl -IV fluids: Continue LR 100 cc/hour maintenance fluids -pain control: Tylenol, [place], morphine -leukocytosis 21,000 and today it is 28,000; continue to trend -Elevated TB at 2.7 -MRCP result pending. Consider GI consult. -blood cultures no growth to date. (2) Hypertension: Code(s): I10 - Essential (primary) hypertension Status: Chronic Assessment and Plan: -elevated blood pressure in the ED up to 200 systolic -continue home medications -p.r.n. hydralazine -on aspirin 81 mg (3) Seizure disorder: Code(s): G40.909 - Epilepsy, unspecified, not intractable, without status epilepticus Status: Chronic Assessment and Plan: Continue phenytoin. Patient should not be on tramadol with seizure disorder. (4) History of CVA (cerebrovascular accident): Code(s): Z86.73 - Personal history of transient ischemic attack (TIA), and cerebral infarction without residual deficits Status: Chronic Assessment and Plan: Right-sided deficits and dysarthria, fenofibrate, statin (5) CROW (acute kidney injury): Code(s): N17.9 - Acute kidney failure, unspecified Status: Acute Assessment and Plan: Patient with elevated BUN and creatinine today of 41/1.8. Repeat UA ordered. Continue IV fluids. Continue to monitor. Subjective Date/time seen: 12/16/22 13:18 Interval history: Patient states that he has abdominal pain and headache. He denies any nausea, vomiting, shortness of breath, chest pain, dizziness and lightheadedness. Exam Narrative: GENERAL: Comfortable, no acute distress HENMT: moist mucous membranes EYES: EOM intact b/l NECK: no lymphadenopathy RESPIRATORY: clear to auscultation CARDIO: RRR GI: soft, right upper quadrant tenderness to palpation, bowel sounds present SKIN: no rashes EXTREMITIES: no edema, redness or tenderness Objective Data Vital Signs Vital Signs: Vital Signs - 24 hr 12/15/22 14:00 12/15/22 22:34 12/15/22 22:00 Temperature 97.7 F 100.6 F H 100.6 F H Pulse Rate 103 H 107 H Respiratory Rate 12 13 Blood Pressure 141/67 H 145/63 H Pulse Oximetry 96 93 Oxygen Delivery 12/15/22 20:00 12/15/22 23:34 12/16/22 05:42 Temperature 99.5 F 99.2 F Pulse Rate 96 Respiratory Rate 16 Blood Pressure 168/79 H Pulse Oximetry 95 Oxygen Delivery Room Air 12/16/22 08:00 Temperature Pulse Rate Respiratory Rate Blood Pressure Pulse Oximetry Oxygen Delivery Room Air Intake/Output Intake/Output: Intake & Output 12/13/22 12/14/22 12/15/22 12/16/22 23:59 23:59 23:59 23:59 Intake Total 1300 2350 1170 Output Total 650 750 Balance 1300 1700 420 Meds/Results Medications: Active Medications Generic Name Dose Route Start Last Admin Trade Name Freq PRN Reason Stop Dose Admin Acetaminophen 650 mg 12/14/22 19:48 12/16/22 09:41 Acetaminophen 325 Mg Tablet PO 650 mg Q4H PRN Administration Mild Pain (1-3) or Fever Hydrocodone Bitart/Acetaminophen 1 tab 12/14/22 19:48 12/15/22 09:13 Hydrocodone/Acetaminophen (*Crx) 5-325 Mg Tablet PO 1 tab Q4H PRN Administration Moderate Pain (4-6) Amlodipine Besylate 10 mg 12/14/22 21:05 12/16/22 09:45 Amlodipine Besylate 5 Mg Tablet PO 10 mg QAM EDI Administration Baclofen 10 mg 12/14/22 21:35 12/16/22 09:45 Baclofen 10 Mg Tablet PO 10 mg BID EDI Administration Clonidine HCl 0.1 mg 12/14/22 21:05 12/16/22 09:45 Clonidine Hcl 0.1 Mg Tablet PO 0.1 mg Q12HR EDI Administration Docusate Sodium
[2022-12-16 14:00] VITALS: BP 162/72; PULSE 85; RESP 18; TEMP 36.9; O2SAT 100
[2022-12-16 17:35] LABS: Appearance Urine Clear (Clear); Bacteria Urine None Seen /hpf; Bilirubin Urine 2+ (Negative); Blood Urine Negative (Negative); Color Urine Dark Yellow (Yellow); Glucose Urine UA Negative (Negative); Ketones Urine Negative (Negative); Leukocyte Esterase Ur Trace LEU/UL (Negative); Nitrate Urine Negative (Negative); Non Pathogenic Casts 0-2; Protein Urine 2+ mg/dL (Negative); RBC Urine 0-2 /hpf (0-2); Squamous Epithelial Cell Urine None seen /hpf (Few); WBC Urine 0-5 /hpf; pH Urine 5.5 (5.0-9.0)
[2022-12-16 17:39] LABS: Add Urine Microscopic? YES
[2022-12-16 20:45] VITALS: BP 169/78; PULSE 90; RESP 18; TEMP 36.9; O2SAT 98
[2022-12-17 04:18] VITALS: BP 167/81; PULSE 89; RESP 18; TEMP 36.8; O2SAT 98
[2022-12-17] MEDS: metroNIDAZOLE 500 MG/ISO 100ML 500 MG/100 ML BAG 100 MG IVPB ×4 (04:58→23:32)
[2022-12-17] MEDS: hydrALAZINE HCL 20 MG/ML VIAL 10 MG IV PUSH ×2 (05:46→20:30)
[2022-12-17 07:17] LABS: Basophils Percent Auto 0.2 % (0.2-1.2); Eosinophils Absolute Auto 0.1 K/mm3 (0-0.3); Eosinophils Percent Auto 0.3 % (0-4.4); Hematocrit 33.6 % (42.0-52.0); Hemoglobin 10.9 g/dL (14.0-18.0); Immature Granulocyte Absolute 0.17 K/mm3 (0.00-0.031); Immature Platelet Fraction Pct 16.8 % (0.9-11.2); Lymphocytes Absolute Auto 1.38 K/mm3 (0.9-3.2); Lymphocytes Percent Auto 7.9 % (18.3-44.2); Mean Corpuscular HGB Conc 32.4 g/dl (32-36); Mean Corpuscular Hemoglobin 28.5 pg (26-34); Mean Platelet Volume 13.1 fl (7.4-10.4); Monocytes Absolute Auto 1.9 K/mm3 (0.1-0.6); Monocytes Percent Auto 11.1 % (2.6-8.5); Neutrophils Absolute Auto 13.8 K/mm3 (1.3-6.7); Neutrophils Percent Auto 79.5 % (45.5-73.1); Platelet Count Result 153 k/mm3 (150-375); Red Blood Count 3.82 M/mm3 (4.6-6.20); Red Cell Distribution Width 14.5 % (11.5-14.5); White Blood Count 17.4 K/mm3 (4.5-10.0)
[2022-12-17 07:18] LABS: Alanine Aminotransferase 20 U/L (6-50); Albumin Level 3.7 g/dL (3.5-5.1); Alkaline Phosphatase 51 U/L (38-126); Anion Gap 10 mmol/L (8-16); Aspartate Amino Transferase 34 U/L (17-59); Bilirubin,Total 1.7 mg/dL (0.2-1.3); Blood Urea Nitrogen 30 mg/dL (9-20); Calcium 8.9 mg/dL (8.4-10.2); Carbon Dioxide 25 mmol/L (22-30); Chloride 101 mmol/L (98-107); Estimated CRCL calculation 70 ml/min; Estimated Glomerular Filt Rate > 60; Glucose 119 mg/dL (65-110); Potassium 3.5 mmol/L (3.4-5.0); Sodium 136 mmol/L (137-145)
[2022-12-17] MEDS: PHENYTOIN SODIUM 100 MG EXTENDED RELEASE CAP 300 MG PO ×2 (08:31→17:54)
[2022-12-17] MEDS: FERROUS SULFATE 325 MG TABLET DR BY MOUTH ×2 (08:31→17:55)
[2022-12-17] MEDS: BACLOFEN 10 MG TABLET PO ×2 (08:31→17:55)
[2022-12-17] MEDS: PANTOPRAZOLE 40 MG TABLET PO (08:32)
[2022-12-17] MEDS: FENOFIBRATE NANOCRYSTALLIZED 145 MG TABLET PO (08:32)
[2022-12-17] MEDS: GABAPENTIN 300 MG CAPSULE 600 MG PO ×3 (08:32→17:55)
[2022-12-17] MEDS: LOSARTAN POTASSIUM 100 MG TABLET PO (08:32)
[2022-12-17] MEDS: cloNIDine HCL 0.1 MG TABLET PO ×2 (08:32→20:30)
[2022-12-17] MEDS: hydroCHLOROthiazide 12.5 MG CAPSULE PO (08:32)
[2022-12-17] MEDS: amLODIPine BESYLATE 5 MG TABLET 10 MG PO (08:32)
[2022-12-17] MEDS: FOLIC ACID 1 MG TABLET 2 MG PO (08:32)
[2022-12-17] MEDS: HYDROcodone/acetaminophen (*CRX) 5-325 MG TABLET 1 TAB PO ×2 (08:39→18:01)
--- NOTE | 2022-12-17 09:17 | PM.PNGS ---
Progress Note: A&P Assessment and Plan (1) Acute cholecystitis: Code(s): K81.0 - Acute cholecystitis Status: Acute Assessment and Plan: MRCP reviewed, WBC trending down, cont IV abx, given poor surgical candidate will setup for perc cholecystostomy Subjective Subjective Date/Time Seen: 12/17/22 09:17 Interval history: no acute issues, reports mild headache and some mild abd pain after eating Review of Systems Review of Systems: All systems reviewed & are unremarkable except as noted in HPI and below Exam Const: General: cooperative, comfortable, no acute distress and ill appearing Resp: Auscultation: clear to auscultation bilaterally Cardio: Rate: regular rate Rhythm: regular rhythm GI: Inspection: normal to inspection and distended GI Palp: Yes abdominal tenderness, Yes Soft to palpation, Yes Tenderness to palpation present (GI), No Guarding due to palpation present (GI) and No Rigid due to palpation Objective Data Vital Signs Vital Signs: Vital Signs - 24 hr 12/16/22 14:00 12/16/22 20:00 12/16/22 20:45 Temperature 36.9 C 36.9 C Pulse Rate 85 90 Respiratory Rate 18 18 Blood Pressure 162/72 H 169/78 H Pulse Oximetry 100 98 Oxygen Delivery Room Air 12/17/22 04:18 Temperature 36.8 C Pulse Rate 89 Respiratory Rate 18 Blood Pressure 167/81 H Pulse Oximetry 98 Oxygen Delivery Intake/Output Intake/Output: Intake & Output 12/14/22 12/15/22 12/16/22 12/17/22 23:59 23:59 23:59 23:59 Intake Total 1300 2350 2640 918 Output Total 650 1050 1000 Balance 1300 1700 1590 -82 Meds/Results Medications: Active Medications Generic Name Dose Route Start Last Admin Trade Name Freq PRN Reason Stop Dose Admin Acetaminophen 650 mg 12/14/22 19:48 12/16/22 20:09 Acetaminophen 325 Mg Tablet PO 650 mg Q4H PRN Administration Mild Pain (1-3) or Fever Hydrocodone Bitart/Acetaminophen 1 tab 12/14/22 19:48 12/17/22 08:39 Hydrocodone/Acetaminophen (*Crx) 5-325 Mg Tablet PO 1 tab Q4H PRN Administration Moderate Pain (4-6) Amlodipine Besylate 10 mg 12/14/22 21:05 12/17/22 08:32 Amlodipine Besylate 5 Mg Tablet PO 10 mg QAM EDI Administration Baclofen 10 mg 12/14/22 21:35 12/17/22 08:31 Baclofen 10 Mg Tablet PO 10 mg BID EDI Administration Clonidine HCl 0.1 mg 12/14/22 21:05 12/17/22 08:32 Clonidine Hcl 0.1 Mg Tablet PO 0.1 mg Q12HR EDI Administration Docusate Sodium 100 mg 12/14/22 21:03 Docusate Sodium 100 Mg Capsule PO BID PRN Constipation Fenofibrate 145 mg 12/15/22 09:00 12/17/22 08:32 Fenofibrate Nanocrystallized 145 Mg Tablet PO 145 mg DAILY EDI Administration Ferrous Sulfate 325 mg 12/15/22 09:00 12/17/22 08:31 Ferrous Sulfate [address] BY MOUTH 325 mg BID EDI Administration Folic Acid 2 mg 12/15/22 09:00 12/17/22 08:32 Folic Acid 1 Mg Tablet PO 2 mg DAILY EDI Administration Gabapentin 600 mg 12/15/22 09:00 12/17/22 08:32 Gabapentin 300 Mg Capsule PO 600 mg TID EDI Administration Hydralazine HCl 10 mg 12/14/22 19:49 12/17/22 05:46 Hydralazine Hcl 20 Mg/Ml Vial IV PUSH 10 mg Q8H PRN Administration Blood Pressure - High Hydrochlorothiazide 12.5 mg 12/15/22 09:00 12/17/22 08:32 Hydrochlorothiazide 12.5 Mg Capsule PO 12.5 mg DAILY EDI Administration Lactated Ringer's 1,000 mls @ 75 mls/hr 12/14/22 19:50 12/17/22 08:33 Lr - Lactated Ringers Iv IV CONT 75 mls/hr .[id number] EDI Infusion Metronidazole 500 mg in 100 mls @ 100 mls/hr 12/14/22 23:00 12/17/22 05:58 Flagyl 500 Mg/Iso Soln 100 Ml IVPB Infused Q6HR EDI Infusion Ceftriaxone Sodium 1 gm in 50 mls @ 100 mls/hr 12/15/22 09:00 12/17/22 08:31 Rocephin 1 Gm/Ns 50 Ml IVPB 100 mls/hr Q24H EDI Administration Losartan Potassium 100 mg 12/15/22 09:00 12/17/22 08:32 Losartan Potassium 100 Mg Tablet PO 100 mg DAILY EDI Adminis
--- NOTE | 2022-12-17 13:29 | PM.IMPN ---
Progress Note: A&P Assessment and Plan (1) Acute cholecystitis: Code(s): K81.0 - Acute cholecystitis Status: Acute Assessment and Plan: Nausea vomiting abdominal pain right upper quadrant consistent with cholecystitis, CT consistent with cholecystitis -general surgery consulted: Plan for cholecystectomy -RUQ US revealing acute cholecystitis -antibiotics: Continue Rocephin, Flagyl -IV fluids: Continue LR 75 cc/hour maintenance fluids -pain control: Tylenol, [place], morphine -leukocytosis 21,000 and today it is 17,400; continue to trend -Elevated TB at 1.7 -MRCP did not show any stone obstruction or stricture -blood cultures no growth to date. -plan for perc drain cholecystostomy (2) Hypertension: Code(s): I10 - Essential (primary) hypertension Status: Chronic Assessment and Plan: -elevated blood pressure in the ED up to 200 systolic -continue home medications -p.r.n. hydralazine -on aspirin 81 mg (3) Seizure disorder: Code(s): G40.909 - Epilepsy, unspecified, not intractable, without status epilepticus Status: Chronic Assessment and Plan: Continue phenytoin. Patient should not be on tramadol with seizure disorder. (4) History of CVA (cerebrovascular accident): Code(s): Z86.73 - Personal history of transient ischemic attack (TIA), and cerebral infarction without residual deficits Status: Chronic Assessment and Plan: Right-sided deficits and dysarthria, fenofibrate, statin (5) CROW (acute kidney injury): Code(s): N17.9 - Acute kidney failure, unspecified Status: Acute Assessment and Plan: Patient with elevated BUN and creatinine today of 41/1.8. UA negative for infection Continue IV fluids. Continue to monitor. BUN and creatinine today 30/1.3 Subjective Date/time seen: 12/17/22 13:29 Interval history: Patient doing well today with mild right upper quadrant abdominal pain. He is a poor surgical candidate thus the plan is for perc drain cholecystostomy. Kidney functions improving and white count is trending down. Exam Narrative: GENERAL: Comfortable, no acute distress HENMT: moist mucous membranes EYES: EOM intact b/l NECK: no lymphadenopathy RESPIRATORY: clear to auscultation CARDIO: RRR GI: soft, right upper quadrant tenderness to palpation, bowel sounds present SKIN: no rashes EXTREMITIES: no edema, redness or tenderness Objective Data Vital Signs Vital Signs: Vital Signs - 24 hr 12/16/22 14:00 12/16/22 20:00 12/16/22 20:45 Temperature 98.4 F 98.5 F Pulse Rate 85 90 Respiratory Rate 18 18 Blood Pressure 162/72 H 169/78 H Pulse Oximetry 100 98 Oxygen Delivery Room Air 12/17/22 04:18 12/17/22 08:00 Temperature 98.3 F Pulse Rate 89 Respiratory Rate 18 Blood Pressure 167/81 H Pulse Oximetry 98 Oxygen Delivery Room Air Intake/Output Intake/Output: Intake & Output 12/14/22 12/15/22 12/16/22 12/17/22 23:59 23:59 23:59 23:59 Intake Total 1300 2350 2640 1278 Output Total 650 1050 1400 Balance 1300 1700 1590 -122 Meds/Results Medications: Active Medications Generic Name Dose Route Start Last Admin Trade Name Freq PRN Reason Stop Dose Admin Acetaminophen 650 mg 12/14/22 19:48 12/16/22 20:09 Acetaminophen 325 Mg Tablet PO 650 mg Q4H PRN Administration Mild Pain (1-3) or Fever Hydrocodone Bitart/Acetaminophen 1 tab 12/14/22 19:48 12/17/22 08:39 Hydrocodone/Acetaminophen (*Crx) 5-325 Mg Tablet PO 1 tab Q4H PRN Administration Moderate Pain (4-6) Amlodipine Besylate 10 mg 12/14/22 21:05 12/17/22 08:32 Amlodipine Besylate 5 Mg Tablet PO 10 mg QAM EDI Administration Baclofen 10 mg 12/14/22 21:35 12/17/22 08:31 Baclofen 10 Mg Tablet PO 10 mg BID EDI Administration Clonidine HCl 0.1 mg 12/14/22 21:05 12/17/22 08:32 Clonidine Hcl 0.1 Mg Tablet PO 0.1 mg Q12HR EDI Administr
[2022-12-17 14:00] VITALS: BP 176/83; PULSE 87; RESP 22; TEMP 36.8; O2SAT 100
--- NOTE | 2022-12-17 14:03 | WPDGICN ---
Assessment and Plan Assessment and plan (1) Acute cholecystitis: Code(s): K81.0 - Acute cholecystitis Status: Acute Assessment and Plan: mrcp reviewed, normal bile duct without stones, he has cholecystitis on antibiotics, also surgery on board no need of ercp and no pancreatitis [place], call if questions (2) Nausea and vomiting in adult: Code(s): R11.2 - Nausea with vomiting, unspecified Status: Acute Assessment and Plan: from cholecystitis antiemetics prn (3) Upper abdominal pain: Code(s): R10.10 - Upper abdominal pain, unspecified Status: Acute Assessment and Plan: still with discomfort (4) History of CVA (cerebrovascular accident): Code(s): Z86.73 - Personal history of transient ischemic attack (TIA), and cerebral infarction without residual deficits Status: Chronic (5) Seizure disorder: Code(s): G40.909 - Epilepsy, unspecified, not intractable, without status epilepticus Status: Chronic (6) CROW (acute kidney injury): Code(s): N17.9 - Acute kidney failure, unspecified Status: Acute Assessment and Plan: treated and better GI Consult Note Consult date/time: 12/17/22 14:03 Reason for consult: acute cholecystitis, n/v HPI: Jose Vyas is a 57 year old male with history of CVA with right-sided deficit and dysarthria, essential hypertension, GERD DVT, history of seizure disorder, abdominal hernia who came to ED with new onset of nausea vomiting along with upper abdominal pain, never had similar episode. ER evaluation with leukocytosis WBC 21.5 K, he was given Rocephin and Flagyl.? Abdominal CT scan concerning for acute cholecystitis, normal lipase, bili 2.7 with normal transaminases. Surgery on board. Review of Systems Constitutional: Constitutional: Denies chills Eyes: Eyes: Reports no additional eye complaints ENT: Reports Normal hearing present Cardiovascular: Cardiovascular: Denies chest pain Respiratory: Respiratory: Denies cough Gastrointestinal: Gastrointestinal: Reports abdominal pain, Reports nausea and Reports vomiting Genitourinary: Genitourinary: Denies hematuria Musculoskeletal: Musculoskeletal: Denies neck pain Integumentary/Breasts: Skin/Breast: Denies rash Neurologic: Reports Abnormal speech present (chronic) Psychiatric: Psychiatric: Denies homicidal ideation PENDING SALE TO [facility] Past Medical History Medical History (Updated 12/17/22 @ 14:07 by Jonathan Ambriz MD) Cerebrovascular accident Residual right-sided weakness and dysarthria. Chronic anemia Deep venous thrombosis Dyslipidemia Hypertension Nausea and vomiting in adult Seizure disorder Upper abdominal pain Surgical History Surgical History History of excision of lesion History of orthopedic surgery Repair of right arm fracture. History of right inguinal hernia repair (11/13/18) History of umbilical hernia repair (11/13/18) Family History Family History Sibling Diabetes mellitus Sibling CAD (coronary artery disease) Social History Social History Social History: The patient lives alone in [place]. He is not and has no children. He is on disability since his stroke in 2003. Former smoker. No alcohol or illicit substance abuse. His niece, Cruz Vyas, is his healthcare power of distributor advertising material. Code status: Full code. Smoking packs per day: 1 Smoking cigarettes per day: 20.0 Years smoked: 5 Smoking pack-years: 5.00 Smoking status: Former smoker Tobacco type: cigarettes Alcohol intake: never Substance use: never Lack of Transportation: No Lack of Food: Never True Current Housing: I Have Housing Concerned About Future Housing: No Difficulty Paying Gas/Electric Bills: No Difficulty Paying for Meds: No C
[2022-12-17 20:22] VITALS: BP 179/83; PULSE 87; RESP 20; TEMP 36.9; O2SAT 98
[2022-12-17 23:08] VITALS: BP 176/78; PULSE 87; O2SAT 98
[2022-12-18] VITALS (13 sets, daily range): BP systolic 160–201; BP diastolic 63–93; PULSE 79–97; RESP 2–30; TEMP 36.7–37.2; O2SAT 97–100
[2022-12-18] MEDS: hydrALAZINE HCL 20 MG/ML VIAL 10 MG IV PUSH (00:41)
[2022-12-18] MEDS: ACETAMINOPHEN 325 MG TABLET 650 MG PO ×3 (01:47→17:25)
[2022-12-18] MEDS: MORPHINE SULFATE (*CRX) 2 MG/ML INJ IV PUSH (02:12)
[2022-12-18] MEDS: cloNIDine HCL 0.1 MG TABLET PO ×3 (02:12→20:36)
[2022-12-18] MEDS: LACTATED RINGERS 1,000 ML 75 ML IV CONT (02:13)
--- NOTE | 2022-12-18 03:26 | PC.NURSE ---
At 2323 on 12/17/22 Adina Phma, MORENITA made aware of pt's elevated BP of 179/83. Hydralazine administered. 1 hr later BP 176/78. manually P 190/70. @0005 on 12/18/22 Vero. PA made aware of BP 190/70, another dose of hydralazine ordered and administered. 1 hour later BP 201/85. Dr. Brown made aware and clonidine and morphine was ordered and administered. Tylenol for headache was also administered. 1 hour later pt BP 160/70. Pt still complains of headache. Pt states his BP is usually 150/70. Continued to monitor.
[2022-12-18] MEDS: metroNIDAZOLE 500 MG/ISO 100ML 500 MG/100 ML BAG 100 MG IVPB ×3 (04:55→17:17)
[2022-12-18] MEDS: METOPROLOL TARTRATE INJ 5 MG/5 ML VIAL IV PUSH ×2 (05:42→06:56)
[2022-12-18] MEDS: HYDROcodone/acetaminophen (*CRX) 5-325 MG TABLET 1 TAB PO ×2 (05:44→20:37)
[2022-12-18 06:28] LABS: Basophils Percent Auto 0.2 % (0.2-1.2); Eosinophils Absolute Auto 0.1 K/mm3 (0-0.3); Eosinophils Percent Auto 0.3 % (0-4.4); Hematocrit 33.8 % (42.0-52.0); Hemoglobin 11.4 g/dL (14.0-18.0); Immature Granulocyte Absolute 0.09 K/mm3 (0.00-0.031); Immature Granulocyte Percent A 0.6 % (0-0.5); Lymphocytes Absolute Auto 1.23 K/mm3 (0.9-3.2); Lymphocytes Percent Auto 7.6 % (18.3-44.2); Mean Corpuscular HGB Conc 33.7 g/dl (32-36); Mean Corpuscular Hemoglobin 29.3 pg (26-34); Mean Corpuscular Volume 86.9 fl (80-100); Mean Platelet Volume 12.6 fl (7.4-10.4); Monocytes Absolute Auto 2.3 K/mm3 (0.1-0.6); Monocytes Percent Auto 14.5 % (2.6-8.5); Neutrophils Absolute Auto 12.4 K/mm3 (1.3-6.7); Neutrophils Percent Auto 76.8 % (45.5-73.1); Platelet Count Result 176 k/mm3 (150-375); Red Blood Count 3.89 M/mm3 (4.6-6.20); Red Cell Distribution Width 14.5 % (11.5-14.5); White Blood Count 16.1 K/mm3 (4.5-10.0)
[2022-12-18 06:38] LABS: Alanine Aminotransferase 19 U/L (6-50); Albumin Level 3.7 g/dL (3.5-5.1); Alkaline Phosphatase 53 U/L (38-126); Anion Gap 10 mmol/L (8-16); Aspartate Amino Transferase 34 U/L (17-59); Bilirubin,Total 1.4 mg/dL (0.2-1.3); Blood Urea Nitrogen 23 mg/dL (9-20); Calcium 8.9 mg/dL (8.4-10.2); Carbon Dioxide 25 mmol/L (22-30); Chloride 101 mmol/L (98-107); Estimated CRCL calculation 82 ml/min; Estimated Glomerular Filt Rate > 60; Glucose 116 mg/dL (65-110); Potassium 3.5 mmol/L (3.4-5.0); Sodium 136 mmol/L (137-145)
[2022-12-18] MEDS: hydroCHLOROthiazide 12.5 MG CAPSULE PO (08:07)
[2022-12-18] MEDS: GABAPENTIN 300 MG CAPSULE 600 MG PO ×3 (08:07→17:17)
[2022-12-18] MEDS: FENOFIBRATE NANOCRYSTALLIZED 145 MG TABLET PO (08:07)
[2022-12-18] MEDS: PHENYTOIN SODIUM 100 MG EXTENDED RELEASE CAP 300 MG PO ×2 (08:08→17:17)
[2022-12-18] MEDS: BACLOFEN 10 MG TABLET PO ×2 (08:10→17:16)
[2022-12-18] MEDS: amLODIPine BESYLATE 5 MG TABLET 10 MG PO (08:11)
[2022-12-18] MEDS: PANTOPRAZOLE 40 MG TABLET PO (08:11)
[2022-12-18] MEDS: FERROUS SULFATE 325 MG TABLET DR BY MOUTH ×2 (08:12→17:17)
[2022-12-18] MEDS: FOLIC ACID 1 MG TABLET 2 MG PO (08:13)
[2022-12-18] MEDS: LOSARTAN POTASSIUM 100 MG TABLET PO (08:13)
--- NOTE | 2022-12-18 11:07 | PM.IMPN ---
Progress Note: A&P Assessment and Plan (1) Acute cholecystitis: Code(s): K81.0 - Acute cholecystitis Status: Acute Assessment and Plan: Nausea vomiting abdominal pain right upper quadrant consistent with cholecystitis, CT consistent with cholecystitis -general surgery consulted: Plan for cholecystectomy -RUQ US revealing acute cholecystitis -antibiotics: Continue Rocephin, Flagyl -IV fluids: Continue LR 75 cc/hour maintenance fluids -pain control: Tylenol, [place], morphine -leukocytosis 21,000 on admission and today it is 16,100; continue to trend -Elevated TB at 1.4 -MRCP did not show any stone obstruction or stricture -blood cultures no growth to date. -perc drain cholecystostomy placed today (2) Hypertension: Code(s): I10 - Essential (primary) hypertension Status: Chronic Assessment and Plan: -elevated blood pressure in the ED up to 200 systolic -continue home medications -p.r.n. hydralazine -on aspirin 81 mg (3) Seizure disorder: Code(s): G40.909 - Epilepsy, unspecified, not intractable, without status epilepticus Status: Chronic Assessment and Plan: Continue phenytoin. Patient should not be on tramadol with seizure disorder. (4) History of CVA (cerebrovascular accident): Code(s): Z86.73 - Personal history of transient ischemic attack (TIA), and cerebral infarction without residual deficits Status: Chronic Assessment and Plan: Right-sided deficits and dysarthria, fenofibrate, statin (5) CROW (acute kidney injury): Code(s): N17.9 - Acute kidney failure, unspecified Status: Acute Assessment and Plan: Patient with elevated BUN and creatinine today of 41/1.8. UA negative for infection Continue IV fluids. Continue to monitor. BUN and creatinine today /.1 Subjective Date/time seen: 12/18/22 11:07 Interval history: Patient doing well today with no complaints at this time. Plan for a perc drain placement later this afternoon. Exam Narrative: GENERAL: Comfortable, no acute distress HENMT: moist mucous membranes EYES: EOM intact b/l NECK: no lymphadenopathy RESPIRATORY: clear to auscultation CARDIO: RRR GI: soft, right upper quadrant tenderness to palpation, bowel sounds present SKIN: no rashes EXTREMITIES: no edema, redness or tenderness Objective Data Vital Signs Vital Signs: Vital Signs - 24 hr 12/17/22 14:00 12/17/22 20:22 12/17/22 20:00 Temperature 98.2 F 98.4 F Pulse Rate 87 87 Respiratory Rate 22 H 20 Blood Pressure 176/83 H 179/83 H Pulse Oximetry 100 98 Oxygen Delivery Room Air 12/17/22 23:08 12/18/22 00:16 12/18/22 01:00 Temperature 98.3 F Pulse Rate 87 87 92 Respiratory Rate 20 Blood Pressure 176/78 H 188/87 H 201/85 H Pulse Oximetry 98 99 98 Oxygen Delivery 12/18/22 03:19 12/18/22 05:17 12/18/22 05:42 Temperature 98.9 F Pulse Rate 88 84 Respiratory Rate 22 H Blood Pressure 160/70 H 192/93 H Pulse Oximetry 98 Oxygen Delivery 12/18/22 06:31 12/18/22 06:56 12/18/22 08:00 Temperature 98.1 F Pulse Rate 82 79 84 Respiratory Rate 20 2 L Blood Pressure 178/90 H 176/86 H Pulse Oximetry 99 99 Oxygen Delivery Intake/Output Intake/Output: Intake & Output 12/15/22 12/16/22 12/17/22 12/18/22 23:59 23:59 23:59 23:59 Intake Total 2350 2640 2768 350 Output Total 650 1050 1400 670 Balance 1700 1590 1368 -320 Meds/Results Medications: Active Medications Generic Name Dose Route Start Last Admin Trade Name Freq PRN Reason Stop Dose Admin Acetaminophen 650 mg 12/14/22 19:48 12/18/22 08:21 Acetaminophen 325 Mg Tablet PO 650 mg Q4H PRN Administration Mild Pain (1-3) or Fever Hydrocodone Bitart/Acetaminophen 1 tab 12/14/22 19:48 12/18/22 05:44 Hydrocodone/Acetaminophen (*Crx) 5-325 Mg Tablet PO 1 tab Q4H PRN Administration Moderate Pain (4-6) Amlodipine Besylate 1
--- NOTE | 2022-12-18 14:16 | PM.PNGS ---
Progress Note: A&P Assessment and Plan (1) Acute cholecystitis: Code(s): K81.0 - Acute cholecystitis Status: Acute Assessment and Plan: Patient is an overall poor surgical candidate given his multiple co-morbidities, plan for percutaneous cholecystostomy tube placement in Radiology today. Continue IV antibiotics, okay to continue clear liquids after procedure. Plan I have discussed the patient's case and plan of care with Dr. Tavera. Subjective Subjective Date/Time Seen: 12/18/22 14:16 Patient reports: still having pain and afebrile (since 12/15) Interval history: This is a 57 yo man with history of CVA and multiple medical problems, who presented to the ED with nausea, vomiting, and upper abdominal pain. He was found to have leukocytosis, hyperbilirubinemia, and CT evidence of acute cholecystitis. MRCP negative for common duct stone. Total bilirubin trending down. Chart reviewed. He is now seen this afternoon. He still complains of abdominal pain and points all across his entire upper and lower abdomen, but feels it has improved slightly since admission. He denies nausea or recent vomiting. He was tolerating clear liquids this morning well. No other complaints at this time. Exam Const: General: comfortable and no acute distress Orientation/consciousness: oriented to person and oriented to place GI: Inspection: other (large protuberant abdomen, not obviously distended) GI Palp: Yes Soft to palpation, Yes Tenderness to palpation present (GI) (diffuse tenderness across his lower abdomen and epigastrum/RUQ), No Guarding due to palpation present (GI) and No Rebound tenderness present Auscultation: normal bowel sounds Objective Data Vital Signs Vital Signs: Vital Signs - 24 hr 12/17/22 20:22 12/17/22 20:00 12/17/22 23:08 Temperature 98.4 F Pulse Rate 87 87 Respiratory Rate 20 Blood Pressure 179/83 H 176/78 H Pulse Oximetry 98 98 Oxygen Delivery Room Air 12/18/22 00:16 12/18/22 01:00 12/18/22 03:19 Temperature 98.3 F Pulse Rate 87 92 Respiratory Rate 20 Blood Pressure 188/87 H 201/85 H 160/70 H Pulse Oximetry 99 98 Oxygen Delivery 12/18/22 05:17 12/18/22 05:42 12/18/22 06:31 Temperature 98.9 F Pulse Rate 88 84 82 Respiratory Rate 22 H 20 Blood Pressure 192/93 H 178/90 H Pulse Oximetry 98 99 Oxygen Delivery 12/18/22 06:56 12/18/22 08:00 12/18/22 12:00 Temperature 98.1 F 98.1 F Pulse Rate 79 84 85 Respiratory Rate 2 L 30 H Blood Pressure 176/86 H 174/79 H Pulse Oximetry 99 100 Oxygen Delivery Intake/Output Intake/Output: Intake & Output 12/15/22 12/16/22 12/17/22 12/18/22 23:59 23:59 23:59 23:59 Intake Total 2350 2640 2768 840 Output Total 650 1050 1400 670 Balance 1700 1590 1368 170 Meds/Results Medications: Active Medications Generic Name Dose Route Start Last Admin Trade Name Freq PRN Reason Stop Dose Admin Acetaminophen 650 mg 12/14/22 19:48 12/18/22 08:21 Acetaminophen 325 Mg Tablet PO 650 mg Q4H PRN Administration Mild Pain (1-3) or Fever Hydrocodone Bitart/Acetaminophen 1 tab 12/14/22 19:48 12/18/22 05:44 Hydrocodone/Acetaminophen (*Crx) 5-325 Mg Tablet PO 1 tab Q4H PRN Administration Moderate Pain (4-6) Amlodipine Besylate 10 mg 12/14/22 21:05 12/18/22 08:11 Amlodipine Besylate 5 Mg Tablet PO 10 mg QAM EDI Administration Baclofen 10 mg 12/14/22 21:35 12/18/22 08:10 Baclofen 10 Mg Tablet PO 10 mg BID EDI Administration Clonidine HCl 0.1 mg 12/14/22 21:05 12/18/22 08:12 Clonidine Hcl 0.1 Mg Tablet PO 0.1 mg Q12HR EDI Administration Docusate Sodium 100 mg 12/14/22 21:03 Docusate Sodium 100 Mg Capsule PO BID PRN Constipation Fenofibrate 145 mg 12/15/22 09:00 12/18/22 08:07 Fenofibrate Nanocrystallized 145 Mg Tablet PO 145 mg DAILY EDI Administration Ferrous Sulfate 325 mg 12/15/22 09:00 12/18/22 08:12 Ferrous Sulfate 325 Mg
[2022-12-18] MEDS: hydrALAZINE HCL 20 MG/ML VIAL IV PUSH ×2 (17:18→20:37)
[2022-12-19] VITALS (11 sets, daily range): BP systolic 158–203; BP diastolic 66–83; PULSE 85–97; RESP 16–28; TEMP 35.6–38.1; O2SAT 95–99
[2022-12-19] MEDS: metroNIDAZOLE 500 MG/ISO 100ML 500 MG/100 ML BAG 100 MG IVPB ×3 (00:10→12:12)
[2022-12-19] MEDS: ACETAMINOPHEN 325 MG TABLET 650 MG PO ×4 (00:19→20:48)
[2022-12-19] MEDS: hydrALAZINE HCL 20 MG/ML VIAL IV PUSH ×3 (00:23→18:10)
[2022-12-19] MEDS: cloNIDine HCL 0.1 MG TABLET PO ×2 (06:32→08:25)
[2022-12-19 06:44] LABS: Basophils Absolute Auto 0.1 K/mm3 (0.0-0.1); Basophils Percent Auto 0.6 % (0.2-1.2); Eosinophils Absolute Auto 0.1 K/mm3 (0-0.3); Eosinophils Percent Auto 0.3 % (0-4.4); Hematocrit 37.4 % (42.0-52.0); Hemoglobin 12.4 g/dL (14.0-18.0); Immature Granulocyte Absolute 0.27 K/mm3 (0.00-0.031); Immature Granulocyte Percent A 1.5 % (0-0.5); Immature Platelet Fraction Pct 16.5 % (0.9-11.2); Lymphocytes Absolute Auto 2.19 K/mm3 (0.9-3.2); Lymphocytes Percent Auto 11.9 % (18.3-44.2); Mean Corpuscular HGB Conc 33.2 g/dl (32-36); Mean Corpuscular Hemoglobin 29.5 pg (26-34); Mean Corpuscular Volume 88.8 fl (80-100); Mean Platelet Volume 12.9 fl (7.4-10.4); Monocytes Percent Auto 16.1 % (2.6-8.5); Neutrophils Absolute Auto 12.8 K/mm3 (1.3-6.7); Neutrophils Percent Auto 69.6 % (45.5-73.1); Platelet Count Result 184 k/mm3 (150-375); Red Blood Count 4.21 M/mm3 (4.6-6.20); Red Cell Distribution Width 15.3 % (11.5-14.5); White Blood Count 18.4 K/mm3 (4.5-10.0)
[2022-12-19 07:40] LABS: Alanine Aminotransferase 18 U/L (6-50); Albumin Level 3.6 g/dL (3.5-5.1); Alkaline Phosphatase 55 U/L (38-126); Anion Gap 13 mmol/L (8-16); Aspartate Amino Transferase 29 U/L (17-59); Bilirubin,Total 1.3 mg/dL (0.2-1.3); Blood Urea Nitrogen 29 mg/dL (9-20); Calcium 8.9 mg/dL (8.4-10.2); Carbon Dioxide 23 mmol/L (22-30); Chloride 101 mmol/L (98-107); Estimated CRCL calculation 82 ml/min; Estimated Glomerular Filt Rate > 60; Glucose 121 mg/dL (65-110); Potassium 3.1 mmol/L (3.4-5.0); Sodium 137 mmol/L (137-145)
--- NOTE | 2022-12-19 07:43 | PM.IMPN ---
Progress Note: A&P Assessment and Plan (1) Acute cholecystitis: Code(s): K81.0 - Acute cholecystitis Status: Acute Assessment and Plan: Nausea vomiting abdominal pain right upper quadrant consistent with cholecystitis, CT consistent with cholecystitis -general surgery consulted: Plan for cholecystectomy -RUQ US revealing acute cholecystitis -antibiotics: Continue Rocephin, Flagyl---leukocytosis increased today, will broaden coverage to Zosyn. -pain control: Tylenol, [place], morphine -leukocytosis 21,000 on admission and today it is 18,100; continue to trend -Elevated TB at 1.4 -MRCP did not show any stone obstruction or stricture -blood cultures no growth to date. -perc drain cholecystostomy placed 12/18 (2) Hypertension: Code(s): I10 - Essential (primary) hypertension Status: Chronic Assessment and Plan: -elevated blood pressure in the ED up to 200 systolic -continue home medications -p.r.n. hydralazine -on aspirin 81 mg -increased clonidine dose from 0.1 mg BID to 0.2 mg BID. Systolics in the 160's now. (3) Seizure disorder: Code(s): G40.909 - Epilepsy, unspecified, not intractable, without status epilepticus Status: Chronic Assessment and Plan: Continue phenytoin. Patient should not be on tramadol with seizure disorder. (4) History of CVA (cerebrovascular accident): Code(s): Z86.73 - Personal history of transient ischemic attack (TIA), and cerebral infarction without residual deficits Status: Chronic Assessment and Plan: Right-sided deficits and dysarthria, fenofibrate, statin (5) CROW (acute kidney injury): Code(s): N17.9 - Acute kidney failure, unspecified Status: Acute Assessment and Plan: Patient with elevated BUN and creatinine today of 41/1.8. Continue to monitor. BUN and creatinine today 29/1.1 Plan Continue with drain management Broaden antibiotics to Zosyn. May add fungal coverage if WBC doesn't improve. Advance diet as tolerated to low fat. Currently clears and still having nausea and pain. PT/OT consult Feeding:clears Analgesia:morphine, norco, acetaminophen Thromboembolic prophylaxis: SCDs Ulcer prophylaxis: Protonix Glycemic control: N/A, blood glucose on BMP 121 Bowel regimen: Colace and miralax Lines: PIV Drains: Percutaneous johnathon tube Antibiotics: Zosyn Subjective Date/time seen: 12/19/22 07:43 Interval history: HPI obtained from chart, Patient is a 57-year-old male with past medical history of CVA with right-sided deficit and dysarthria, essential hypertension, GERD, hyperlipidemia, DVT, history of seizure disorder, abdominal hernia who presents to ED with complaints of nausea vomiting.? Patient states anything he tried to eat let him to vomit.? Nothing alleviated symptoms.? He has not had nausea vomiting like this before.? He does have and umbilical hernia and a ventral hernia, apparently has had history is of hernias with right inguinal repair in 2019.? He still has a gallbladder and appendix. In the ED:? Patient is found have leukocytosis WBC 21.5 K, he was given Rocephin and Flagyl antibiotic, 1 L fluid bolus.? Abdominal CT scan concerning for acute cholecystitis.? General surgery was consulted recommending hospitalist admission. 12/19: Patient is seen today postoperatively from percutaneous cholecystostomy tube. He says that the taping around the drain is uncomfortable and he has pain with deep inspiration. Drain has small amount of bilious output present. He says that he has not had any vomiting but is continuing to be nauseated. Continue with clear liquids for now. He has intermittently had headaches related to his uncontrolled hypertension. Appears during most of his admission his systolic has been in the 180s to 200s. I have increased his clonidine today and will re-evaluate blood pressure this afternoon. He appears tachypneic and but says he is not
[2022-12-19 08:01] LABS: Atypical Lymphocytes Present; Large Platelets Present; Platelet Clumps Present; Platelet Estimate Adequate (Adequate); Schistocytes Rare (NORMAL)
[2022-12-19] MEDS: FOLIC ACID 1 MG TABLET 2 MG PO (08:23)
[2022-12-19] MEDS: PANTOPRAZOLE 40 MG TABLET PO (08:23)
[2022-12-19] MEDS: BACLOFEN 10 MG TABLET PO ×2 (08:23→17:57)
[2022-12-19] MEDS: FERROUS SULFATE 325 MG TABLET DR BY MOUTH ×2 (08:23→17:58)
[2022-12-19] MEDS: POTASSIUM CHLORIDE 10 MEQ ER TABLET PO (08:23)
[2022-12-19] MEDS: amLODIPine BESYLATE 5 MG TABLET 10 MG PO (08:23)
[2022-12-19] MEDS: POTASSIUM CHLORIDE 20 MEQ ER TABLET 40 MEQ PO (08:24)
[2022-12-19] MEDS: FENOFIBRATE NANOCRYSTALLIZED 145 MG TABLET PO (08:24)
[2022-12-19] MEDS: LOSARTAN POTASSIUM 100 MG TABLET PO (08:24)
[2022-12-19] MEDS: GABAPENTIN 300 MG CAPSULE 600 MG PO ×3 (08:24→17:57)
[2022-12-19] MEDS: PHENYTOIN SODIUM 100 MG EXTENDED RELEASE CAP 300 MG PO ×2 (08:24→17:57)
[2022-12-19] MEDS: hydroCHLOROthiazide 12.5 MG CAPSULE PO (08:25)
--- NOTE | 2022-12-19 15:43 | PM.PNGS ---
Progress Note: A&P Assessment and Plan (1) Acute cholecystitis: Code(s): K81.0 - Acute cholecystitis Status: Acute Assessment and Plan: clinically better, cont IV abx and drain, low fat diet Subjective Subjective Date/Time Seen: 12/19/22 15:43 Interval history: feels a little better, decreased pressure/pain, beto diet Review of Systems Review of Systems: All systems reviewed & are unremarkable except as noted in HPI and below Exam Const: General: cooperative, comfortable and no acute distress Resp: Auscultation: clear to auscultation bilaterally Cardio: Rate: regular rate Rhythm: regular rhythm GI: Inspection: normal to inspection and distended GI Palp: Yes abdominal tenderness, Yes Soft to palpation, Yes Tenderness to palpation present (GI), No Guarding due to palpation present (GI) and No Rigid due to palpation Other: johnathon tube c bilious drainage Objective Data Vital Signs Vital Signs: Vital Signs - 24 hr 12/18/22 16:00 12/18/22 18:28 12/18/22 20:29 Temperature 37.1 C 36.9 C Pulse Rate 96 96 Respiratory Rate 30 H 30 H Blood Pressure 195/84 H 175/73 H 194/70 H Pulse Oximetry 97 98 12/18/22 21:25 12/19/22 00:39 12/19/22 04:00 Temperature 36.8 C 35.6 C L Pulse Rate 97 95 87 Respiratory Rate 28 H 16 Blood Pressure 162/63 H 183/74 H 202/83 H Pulse Oximetry 97 97 99 12/19/22 06:23 12/19/22 08:10 12/19/22 11:29 Temperature 36.1 C L Pulse Rate 94 91 Respiratory Rate 26 H Blood Pressure 203/82 H 186/82 H 163/81 H Pulse Oximetry 98 12/19/22 11:54 Temperature 37.1 C Pulse Rate 85 Respiratory Rate 20 Blood Pressure 163/74 H Pulse Oximetry 99 Intake/Output Intake/Output: Intake & Output 12/16/22 12/17/22 12/18/22 12/19/22 23:59 23:59 23:59 23:59 Intake Total 2640 2768 1190 2062 Output Total 1050 8967 200 6263 Balance 1590 4952 624 1430 Meds/Results Medications: Active Medications Generic Name Dose Route Start Last Admin Trade Name Freq PRN Reason Stop Dose Admin Acetaminophen 650 mg 12/14/22 19:48 12/19/22 12:16 Acetaminophen 325 Mg Tablet PO 650 mg Q4H PRN Administration Mild Pain (1-3) or Fever Hydrocodone Bitart/Acetaminophen 1 tab 12/14/22 19:48 12/18/22 20:37 Hydrocodone/Acetaminophen (*Crx) 5-325 Mg Tablet PO 1 tab Q4H PRN Administration Moderate Pain (4-6) Amlodipine Besylate 10 mg 12/14/22 21:05 12/19/22 08:23 Amlodipine Besylate 5 Mg Tablet PO 10 mg QAM EDI Administration Baclofen 10 mg 12/14/22 21:35 12/19/22 08:23 Baclofen 10 Mg Tablet PO 10 mg BID [facility] Administration Clonidine HCl 0.2 mg 12/19/22 09:00 Clonidine Hcl 0.2 Mg Tablet PO Q12HR [facility] Docusate Sodium 100 mg 12/20/22 09:00 Docusate Sodium 100 Mg Capsule PO DAILY [facility] Enoxaparin Sodium 40 mg 12/20/22 09:00 Enoxaparin 40 Mg/0.4 Ml Syringe SUB-Q DAILY [facility] Fenofibrate 145 mg 12/15/22 09:00 12/19/22 08:24 Fenofibrate Nanocrystallized 145 Mg Tablet PO 145 mg DAILY [facility] Administration Ferrous Sulfate 325 mg 12/15/22 09:00 12/19/22 08:23 Ferrous Sulfate [address] BY MOUTH 325 mg BID [facility] Administration Folic Acid 2 mg 12/15/22 09:00 12/19/22 08:23 Folic Acid 1 Mg Tablet PO 2 mg DAILY [facility] Administration Gabapentin 600 mg 12/15/22 09:00 12/19/22 12:11 Gabapentin 300 Mg Capsule PO 600 mg TID [facility] Administration Hydralazine HCl 20 mg 12/18/22 05:27 12/19/22 05:20 Hydralazine Hcl 20 Mg/Ml Vial IV PUSH 20 mg Q4H PRN Administration SBP greater than 160 Hydrochlorothiazide 12.5 mg 12/15/22 09:00 12/19/22 08:25 Hydrochlorothiazide 12.5 Mg Capsule PO 12.5 mg DAILY EDI Administration Piperacillin Sod/Tazobactam Sod 4.5 gm in 100 mls @ 200 mls/hr 12/19/22 17:00 Zosyn 4.5 Gm/Ns 100 Ml IVPB Q6HR EDI Losartan Potassium 100 mg 12/15/22 09:00 12/19/22 08:24 Losartan Potassium 100 Mg Tablet PO 1
[2022-12-19] MEDS: PIPERACILLIN/TAZ 4.5G/NS 100ML 4.5 GM/100 ML BAG IVPB ×2 (17:58→23:02)
[2022-12-19] MEDS: cloNIDine HCL 0.2 MG TABLET PO (20:48)
[2022-12-19] MEDS: HYDROcodone/acetaminophen (*CRX) 5-325 MG TABLET 1 TAB PO (23:00)
[2022-12-20] VITALS (10 sets, daily range): BP systolic 141–187; BP diastolic 59–82; PULSE 81–93; RESP 20–30; TEMP 36.1–37.8; O2SAT 97–99
[2022-12-20] MEDS: ACETAMINOPHEN 325 MG TABLET 650 MG PO ×4 (02:24→23:09)
[2022-12-20] MEDS: hydrALAZINE HCL 20 MG/ML VIAL IV PUSH ×2 (04:34→12:49)
[2022-12-20] MEDS: PIPERACILLIN/TAZ 4.5G/NS 100ML 4.5 GM/100 ML BAG IVPB ×4 (05:43→23:07)
[2022-12-20] MEDS: hydrALAZINE HCL 20 MG/ML VIAL 10 MG IV PUSH (06:03)
[2022-12-20 06:43] LABS: Alanine Aminotransferase 16 U/L (6-50); Albumin Level 3.6 g/dL (3.5-5.1); Alkaline Phosphatase 55 U/L (38-126); Anion Gap 11 mmol/L (8-16); Aspartate Amino Transferase 27 U/L (17-59); Blood Urea Nitrogen 31 mg/dL (9-20); Carbon Dioxide 22 mmol/L (22-30); Chloride 103 mmol/L (98-107); Estimated CRCL calculation 82 ml/min; Estimated Glomerular Filt Rate > 60; Glucose 110 mg/dL (65-110); Magnesium 2.3 mg/dL (1.6-2.3); Potassium 3.5 mmol/L (3.4-5.0); Sodium 136 mmol/L (137-145)
[2022-12-20 06:54] LABS: Hematocrit 33.2 % (42.0-52.0); Mean Corpuscular HGB Conc 33.1 g/dl (32-36); Mean Corpuscular Hemoglobin 28.6 pg (26-34); Mean Corpuscular Volume 86.5 fl (80-100); Mean Platelet Volume 12.6 fl (7.4-10.4); Platelet Count Result 217 k/mm3 (150-375); Red Blood Count 3.84 M/mm3 (4.6-6.20); Red Cell Distribution Width 15.1 % (11.5-14.5); White Blood Count 22.3 K/mm3 (4.5-10.0)
[2022-12-20 07:32] LABS: Band Neutrophils Percent 8 % (0-6); Lymphocytes Absolute Manual 2.67 K/mm3 (1.1-4.5); Monocytes Percent Manual 9 % (3-9); Neutrophils Absolute Manual 17.61 K/mm3 (1.3-6.7); Neutrophils Percent Manual 71 % (46-73); Platelet Estimate Adequate (Adequate); Total Cells Counted 100
[2022-12-20 07:33] LABS: Anisocytosis 1+ (NORMAL); Burr Cells 1+ (NORMAL); Schistocytes None Seen (NORMAL)
--- NOTE | 2022-12-20 08:40 | PM.IMPN ---
Progress Note: A&P Assessment and Plan (1) Acute cholecystitis: Code(s): K81.0 - Acute cholecystitis Status: Acute Assessment and Plan: Nausea vomiting abdominal pain right upper quadrant consistent with cholecystitis, CT consistent with cholecystitis -general surgery consulted: placed johnathon drain and is leaning towards conservative management due to co-morbidities -RUQ US revealing acute cholecystitis -antibiotics: Zosyn and adding fluconazole and vanco given increasing WBC -pain control: Tylenol, [place], morphine -leukocytosis 21,000 on admission. Now worsening despite johnathon drain and zosyn ;WBC 22,300 -T Bili normal -MRCP did not show any stone obstruction or stricture -blood cultures no growth to date. Repeat blood cultures in setting of low grade fever overnight (100.1, suspect this is suppressed given regular use of acetaminophen) and increasing leukocytosis -obtain lactic -CT abdomen and pelvis ordered and shows new liver abcess. -Surgery aware and will coordinate with IR for drain placement. -perc drain cholecystostomy placed 12/18 (2) Hypertension: Code(s): I10 - Essential (primary) hypertension Status: Chronic Assessment and Plan: -elevated blood pressure in the ED up to 200 systolic -continue home medications -p.r.n. hydralazine -on aspirin 81 mg -increased clonidine dose from 0.1 mg BID to 0.2 mg BID. Systolics in the 160's now. (3) Seizure disorder: Code(s): G40.909 - Epilepsy, unspecified, not intractable, without status epilepticus Status: Chronic Assessment and Plan: Continue phenytoin. Patient should not be on tramadol with seizure disorder. Add phenytoin level for tomorrow am based on Diflucan interaction. (4) History of CVA (cerebrovascular accident): Code(s): Z86.73 - Personal history of transient ischemic attack (TIA), and cerebral infarction without residual deficits Status: Chronic Assessment and Plan: Right-sided deficits and dysarthria, fenofibrate, statin (5) CROW (acute kidney injury): Code(s): N17.9 - Acute kidney failure, unspecified Status: Acute Assessment and Plan: Patient with elevated BUN and creatinine today of 41/1.8. Continue to monitor closely given new addition of vanco/zosyn combo BUN and creatinine today 31/1.1 Plan Continue with drain management Broaden antibiotics to Zosyn, Fluconazole, and Vanco CT abdomen and pelvis Lactic and repeat blood cultures low fat diet PT/OT consult Feeding:Low fat diet Analgesia:morphine, norco, acetaminophen Thromboembolic prophylaxis: SCDs Ulcer prophylaxis: Protonix Glycemic control: N/A, blood glucose on BMP 121 Bowel regimen: Colace and miralax Lines: PIV Drains: Percutaneous johnathon tube Antibiotics: Zosyn, Vanco, Diflucan Subjective Date/time seen: 12/20/22 08:40 Interval history: HPI obtained from chart, Patient is a 57-year-old male with past medical history of CVA with right-sided deficit and dysarthria, essential hypertension, GERD, hyperlipidemia, DVT, history of seizure disorder, abdominal hernia who presents to ED with complaints of nausea vomiting.? Patient states anything he tried to eat let him to vomit.? Nothing alleviated symptoms.? He has not had nausea vomiting like this before.? He does have and umbilical hernia and a ventral hernia, apparently has had history is of hernias with right inguinal repair in 2019.? He still has a gallbladder and appendix. In the ED:? Patient is found have leukocytosis WBC 21.5 K, he was given Rocephin and Flagyl antibiotic, 1 L fluid bolus.? Abdominal CT scan concerning for acute cholecystitis.? General surgery was consulted recommending hospitalist admission. 12/19: Patient is seen today postoperatively from percutaneous cholecystostomy tube. He says that the taping around the drain is uncomfortable and he has pain with deep inspiration. Drain has small amou
[2022-12-20 09:25] LABS: Lactic Acid Reflex 1.1 mmol/L (0.7-2.0)
[2022-12-20] MEDS: FLUCONAZOLE 100 MG TABLET 800 MG PO (09:27)
[2022-12-20] MEDS: ENOXAPARIN 40 MG/0.4 ML SYRINGE SUB-Q (09:28)
[2022-12-20] MEDS: LOSARTAN POTASSIUM 100 MG TABLET PO (09:30)
[2022-12-20] MEDS: FOLIC ACID 1 MG TABLET 2 MG PO (09:30)
[2022-12-20] MEDS: POTASSIUM CHLORIDE 10 MEQ ER TABLET PO (09:30)
[2022-12-20] MEDS: GABAPENTIN 300 MG CAPSULE 600 MG PO ×3 (09:30→17:26)
[2022-12-20] MEDS: hydroCHLOROthiazide 12.5 MG CAPSULE PO (09:30)
[2022-12-20] MEDS: PHENYTOIN SODIUM 100 MG EXTENDED RELEASE CAP 300 MG PO ×2 (09:30→17:25)
[2022-12-20] MEDS: DOCUSATE SODIUM 100 MG CAPSULE PO (09:31)
[2022-12-20] MEDS: PANTOPRAZOLE 40 MG TABLET PO (09:32)
[2022-12-20] MEDS: FENOFIBRATE NANOCRYSTALLIZED 145 MG TABLET PO (09:32)
[2022-12-20] MEDS: cloNIDine HCL 0.2 MG TABLET PO ×2 (09:32→20:51)
[2022-12-20] MEDS: FERROUS SULFATE 325 MG TABLET DR BY MOUTH ×2 (09:32→17:26)
[2022-12-20] MEDS: amLODIPine BESYLATE 5 MG TABLET 10 MG PO (09:32)
[2022-12-20] MEDS: BACLOFEN 10 MG TABLET PO ×2 (09:33→17:26)
--- NOTE | 2022-12-20 15:41 | PM.PNGS ---
Progress Note: A&P Assessment and Plan (1) Acute cholecystitis: Code(s): K81.0 - Acute cholecystitis Status: Acute Assessment and Plan: S/p percutaneous cholecystostomy tube placement. Febrile with worsening leukocytosis. Repeat CT abdomen and pelvis today showed new fluid collections along the liver suspicious for abscess. Dr. Tavera will speak with Radiologist to see if this can be percutaneously drained. Continue IV antibiotics, follow cultures. Plan I have discussed the patient's case and plan of care with Dr. Tavera. Subjective Subjective Date/Time Seen: 12/20/22 15:41 Patient reports: no new complaints, feels better and fever Exam Const: General: comfortable and no acute distress GI: Inspection: other (large protuberant abdomen, not obviously distended) GI Palp: Yes Soft to palpation, Yes Tenderness to palpation present (GI) (RUQ) and No Guarding due to palpation present (GI) Auscultation: normal bowel sounds Other: johnathon tube c bilious drainage Objective Data Vital Signs Vital Signs: Vital Signs - 24 hr 12/19/22 18:03 12/19/22 19:21 12/19/22 20:55 Temperature 99.3 F Pulse Rate 97 Respiratory Rate 25 H Blood Pressure 190/78 H 187/73 H 161/79 H Pulse Oximetry 97 Oxygen Delivery 12/19/22 23:00 12/20/22 02:24 12/20/22 02:15 Temperature 100.6 F H 100.1 F H 100.1 F H Pulse Rate 93 Respiratory Rate 24 H Blood Pressure 158/66 H Pulse Oximetry 95 Oxygen Delivery 12/20/22 03:24 12/20/22 04:30 12/20/22 05:15 Temperature 99.3 F 99.3 F Pulse Rate 81 92 Respiratory Rate 26 H 24 H Blood Pressure 177/82 H 187/80 H Pulse Oximetry 98 97 Oxygen Delivery 12/20/22 06:35 12/20/22 10:00 12/20/22 11:46 Temperature 98.4 F 97.9 F Pulse Rate 92 91 Respiratory Rate 30 H 20 Blood Pressure 166/79 H 180/80 H Pulse Oximetry 97 98 Oxygen Delivery Room Air Intake/Output Intake/Output: Intake & Output 12/17/22 12/18/22 12/19/22 12/20/22 23:59 23:59 23:59 23:59 Intake Total 6088 1190 2862 1950 Output Total 4410 201 3275 885 Balance 7419 003 6541 1065 Meds/Results Medications: Active Medications Generic Name Dose Route Start Last Admin Trade Name Freq PRN Reason Stop Dose Admin Acetaminophen 650 mg 12/14/22 19:48 12/20/22 09:48 Acetaminophen 325 Mg Tablet PO 650 mg Q4H PRN Administration Mild Pain (1-3) or Fever Hydrocodone Bitart/Acetaminophen 1 tab 12/14/22 19:48 12/19/22 23:00 Hydrocodone/Acetaminophen (*Crx) 5-325 Mg Tablet PO 1 tab Q4H PRN Administration Moderate Pain (4-6) Amlodipine Besylate 10 mg 12/14/22 21:05 12/20/22 09:32 Amlodipine Besylate 5 Mg Tablet PO 10 mg QAM [facility] Administration Baclofen 10 mg 12/14/22 21:35 12/20/22 09:33 Baclofen 10 Mg Tablet PO 10 mg BID EDI Administration Clonidine HCl 0.2 mg 12/19/22 09:00 12/20/22 09:32 Clonidine Hcl 0.2 Mg Tablet PO 0.2 mg Q12HR EDI Administration Docusate Sodium 100 mg 12/20/22 09:00 12/20/22 09:31 Docusate Sodium 100 Mg Capsule PO 100 mg DAILY EDI Administration Enoxaparin Sodium 40 mg 12/20/22 09:00 12/20/22 09:28 Enoxaparin 40 Mg/0.4 Ml Syringe SUB-Q 40 mg DAILY EDI Administration Fenofibrate 145 mg 12/15/22 09:00 12/20/22 09:32 Fenofibrate Nanocrystallized 145 Mg Tablet PO 145 mg DAILY EDI Administration Ferrous Sulfate 325 mg 12/15/22 09:00 12/20/22 09:32 Ferrous Sulfate [address] BY MOUTH 325 mg BID EDI Administration Fluconazole 400 mg 12/21/22 09:00 Fluconazole 100 Mg Tablet PO QAM EDI Folic Acid 2 mg 12/15/22 09:00 12/20/22 09:30 Folic Acid 1 Mg Tablet PO 2 mg DAILY EDI Administration Gabapentin 600 mg 12/15/22 09:00 12/20/22 12:44 Gabapentin 300 Mg Capsule PO 600 mg TID EDI Administration Hydralazine HCl 20 mg 12/18/22 05:27 12/20/22 12:49 Hydralazine Hcl 20 Mg/Ml Vial IV PUSH 20 mg Q4H PRN A
--- NOTE | 2022-12-20 21:03 | PC.NURSE ---
This nurse reviewed Chari Tariq (license pending) charting, and approved all her entries for 12-19-22/12-20-22.
[2022-12-21] VITALS (7 sets, daily range): BP systolic 115–175; BP diastolic 59–88; PULSE 64–87; RESP 16–27; TEMP 35.5–36.9; O2SAT 95–100
--- NOTE | 2022-12-21 02:49 | PC.NURSE ---
I have reviewed Chari Tariq's charting (license pending) and agree with all entries for 12-20-22/12-21-22.
[2022-12-21] MEDS: PIPERACILLIN/TAZ 4.5G/NS 100ML 4.5 GM/100 ML BAG IVPB ×3 (05:11→17:31)
--- NOTE | 2022-12-21 07:01 | PM.IMPN ---
Progress Note: A&P Assessment and Plan (1) Acute cholecystitis: Code(s): K81.0 - Acute cholecystitis Status: Acute Assessment and Plan: Nausea vomiting abdominal pain right upper quadrant consistent with cholecystitis, CT consistent with cholecystitis -general surgery consulted: placed johnathon drain and is leaning towards conservative management due to co-morbidities -RUQ US revealing acute cholecystitis -antibiotics: Zosyn. Dropping vanco with Cr trending up and zosyn combo. Fungal studies are negative. Diflucan stopped. -pain control: Tylenol, Orange, morphine -leukocytosis 21,000 on admission. Now worsening despite johnathon drain and zosyn ;WBC 22,000 -T Bili normal -MRCP did not show any stone obstruction or stricture -blood cultures no growth to date. Repeat blood cultures in setting of low grade fever overnight (100.1, suspect this is suppressed given regular use of acetaminophen) and increasing leukocytosis -obtain lactic, negative -CT abdomen and pelvis ordered and shows new liver abscess. Per IR, abscess is too small for drain at this time. -perc drain cholecystostomy placed 12/18 (2) Hypertension: Code(s): I10 - Essential (primary) hypertension Status: Chronic Assessment and Plan: -elevated blood pressure in the ED up to 200 systolic -continue home medications -p.r.n. hydralazine -on aspirin 81 mg -increased clonidine dose from 0.1 mg BID to 0.2 mg BID. Systolics in the 150-160's now. (3) Seizure disorder: Code(s): G40.909 - Epilepsy, unspecified, not intractable, without status epilepticus Status: Chronic Assessment and Plan: Continue phenytoin. Patient should not be on tramadol with seizure disorder. Add phenytoin level for tomorrow am based on Diflucan interaction. (4) History of CVA (cerebrovascular accident): Code(s): Z86.73 - Personal history of transient ischemic attack (TIA), and cerebral infarction without residual deficits Status: Chronic Assessment and Plan: Right-sided deficits and dysarthria, fenofibrate, statin (5) CROW (acute kidney injury): Code(s): N17.9 - Acute kidney failure, unspecified Status: Acute Assessment and Plan: Patient with elevated BUN and creatinine today of 41/1.8. Continue to monitor closely BUN and creatinine today 29/1.3 Plan Continue with drain management CT abdomen and pelvis low fat diet PT/OT consult Feeding:Low fat diet Analgesia:morphine, norco, acetaminophen Thromboembolic prophylaxis: SCDs Ulcer prophylaxis: Protonix Glycemic control: N/A, blood glucose on BMP 121 Bowel regimen: Colace and miralax Lines: PIV Drains: Percutaneous johnathon tube Antibiotics: Zosyn Subjective Date/time seen: 12/21/22 07:01 Interval history: HPI obtained from chart, Patient is a 57-year-old male with past medical history of CVA with right-sided deficit and dysarthria, essential hypertension, GERD, hyperlipidemia, DVT, history of seizure disorder, abdominal hernia who presents to ED with complaints of nausea vomiting.? Patient states anything he tried to eat let him to vomit.? Nothing alleviated symptoms.? He has not had nausea vomiting like this before.? He does have and umbilical hernia and a ventral hernia, apparently has had history is of hernias with right inguinal repair in 2019.? He still has a gallbladder and appendix. In the ED:? Patient is found have leukocytosis WBC 21.5 K, he was given Rocephin and Flagyl antibiotic, 1 L fluid bolus.? Abdominal CT scan concerning for acute cholecystitis.? General surgery was consulted recommending hospitalist admission. 12/19: Patient is seen today postoperatively from percutaneous cholecystostomy tube. He says that the taping around the drain is uncomfortable and he has pain with deep inspiration. Drain has small amount of bilious output present. He says that he has not had any vomiting but is continuing to be na
[2022-12-21] MEDS: PHENYTOIN SODIUM 100 MG EXTENDED RELEASE CAP 300 MG PO ×2 (08:13→16:07)
[2022-12-21] MEDS: amLODIPine BESYLATE 5 MG TABLET 10 MG PO (08:13)
[2022-12-21] MEDS: GABAPENTIN 300 MG CAPSULE 600 MG PO ×3 (08:13→16:07)
[2022-12-21] MEDS: FOLIC ACID 1 MG TABLET 2 MG PO (08:14)
[2022-12-21] MEDS: BACLOFEN 10 MG TABLET PO ×2 (08:14→16:07)
[2022-12-21] MEDS: POTASSIUM CHLORIDE 10 MEQ ER TABLET PO (08:14)
[2022-12-21] MEDS: cloNIDine HCL 0.2 MG TABLET PO ×2 (08:14→21:33)
[2022-12-21] MEDS: LOSARTAN POTASSIUM 100 MG TABLET PO (08:14)
[2022-12-21] MEDS: FERROUS SULFATE 325 MG TABLET DR BY MOUTH ×2 (08:14→16:07)
[2022-12-21] MEDS: DOCUSATE SODIUM 100 MG CAPSULE PO (08:14)
[2022-12-21] MEDS: FENOFIBRATE NANOCRYSTALLIZED 145 MG TABLET PO (08:14)
[2022-12-21] MEDS: PANTOPRAZOLE 40 MG TABLET PO (08:14)
[2022-12-21] MEDS: ENOXAPARIN 40 MG/0.4 ML SYRINGE SUB-Q (08:15)
[2022-12-21] MEDS: polyethylene glycoL 3350 17 GM POWD.PACK PO (08:15)
[2022-12-21] MEDS: FLUCONAZOLE 100 MG TABLET 400 MG PO (08:15)
[2022-12-21] MEDS: hydroCHLOROthiazide 12.5 MG CAPSULE PO (08:15)
[2022-12-21 08:42] LABS: Basophils Absolute Auto 0.1 K/mm3 (0.0-0.1); Basophils Percent Auto 0.4 % (0.2-1.2); Eosinophils Absolute Auto 0.3 K/mm3 (0-0.3); Eosinophils Percent Auto 1.4 % (0-4.4); Hematocrit 32.2 % (42.0-52.0); Hemoglobin 10.5 g/dL (14.0-18.0); Immature Granulocyte Absolute 0.65 K/mm3 (0.00-0.031); Immature Granulocyte Percent A 3.2 % (0-0.5); Lymphocytes Absolute Auto 3.33 K/mm3 (0.9-3.2); Lymphocytes Percent Auto 16.6 % (18.3-44.2); Mean Corpuscular HGB Conc 32.6 g/dl (32-36); Mean Corpuscular Hemoglobin 28.7 pg (26-34); Mean Platelet Volume 11.7 fl (7.4-10.4); Monocytes Absolute Auto 2.3 K/mm3 (0.1-0.6); Monocytes Percent Auto 11.5 % (2.6-8.5); Neutrophils Absolute Auto 13.4 K/mm3 (1.3-6.7); Neutrophils Percent Auto 66.9 % (45.5-73.1); Platelet Count Result 240 k/mm3 (150-375); Red Blood Count 3.66 M/mm3 (4.6-6.20); Red Cell Distribution Width 15.8 % (11.5-14.5)
[2022-12-21 08:55] LABS: Alanine Aminotransferase 14 U/L (6-50); Albumin Level 3.4 g/dL (3.5-5.1); Alkaline Phosphatase 48 U/L (38-126); Anion Gap 9 mmol/L (8-16); Aspartate Amino Transferase 24 U/L (17-59); Bilirubin,Total 0.8 mg/dL (0.2-1.3); Blood Urea Nitrogen 29 mg/dL (9-20); Calcium 8.9 mg/dL (8.4-10.2); Carbon Dioxide 26 mmol/L (22-30); Chloride 103 mmol/L (98-107); Estimated CRCL calculation 70 ml/min; Estimated Glomerular Filt Rate > 60; Glucose 103 mg/dL (65-110); Phenytoin Dilantin 5 ug/mL (10-20); Potassium 3.9 mmol/L (3.4-5.0); Sodium 138 mmol/L (137-145)
[2022-12-21 09:05] LABS: Platelet Estimate Adequate (Adequate); Schistocytes None Seen (NORMAL)
--- NOTE | 2022-12-21 09:05 | PM.PNGS ---
Progress Note: A&P Assessment and Plan (1) Acute cholecystitis: Code(s): K81.0 - Acute cholecystitis Status: Acute Assessment and Plan: cont perc drain and abx, exam benign, cont low fat diet (2) Liver abscess: Code(s): K75.0 - Abscess of liver Status: Acute Assessment and Plan: d/w IR and decision to hold off on drainage for now given small size of abscesses and difficult location, will cont to follow clinically c exams/labs, cont IV abx Subjective Subjective Date/Time Seen: 12/21/22 09:05 Interval history: feels better this am, no pain, beto diet, +bowel fxn Review of Systems Review of Systems: All systems reviewed & are unremarkable except as noted in HPI and below Exam Const: General: cooperative, comfortable, no acute distress and obese Resp: Auscultation: clear to auscultation bilaterally Cardio: Rate: regular rate Rhythm: regular rhythm GI: Inspection: normal to inspection and distended GI Palp: No abdominal tenderness and Yes Soft to palpation Other: johnathon tube c bilious drainage Objective Data Vital Signs Vital Signs: Vital Signs - 24 hr 12/20/22 10:00 12/20/22 11:46 12/20/22 14:00 Temperature 36.6 C 36.4 C Pulse Rate 91 91 Respiratory Rate 20 20 Blood Pressure 180/80 H 172/66 H Pulse Oximetry 98 98 Oxygen Delivery Room Air 12/20/22 15:45 12/20/22 18:00 12/20/22 22:00 Temperature 37.6 C 36.1 C L Pulse Rate 93 88 Respiratory Rate 20 24 H Blood Pressure 141/59 H 157/72 H Pulse Oximetry 99 99 Oxygen Delivery Room Air 12/21/22 01:46 12/21/22 05:32 Temperature 35.5 C L 36.7 C Pulse Rate 83 87 Respiratory Rate 27 H 24 H Blood Pressure 151/77 H 148/88 H Pulse Oximetry 98 99 Oxygen Delivery Intake/Output Intake/Output: Intake & Output 12/18/22 12/19/22 12/20/22 12/21/22 23:59 23:59 23:59 23:59 Intake Total 1190 2862 3330 225 Output Total 860 1230 1185 665 Balance 330 1632 2145 -440 Meds/Results Medications: Active Medications Generic Name Dose Route Start Last Admin Trade Name Freq PRN Reason Stop Dose Admin Acetaminophen 650 mg 12/14/22 19:48 12/20/22 23:09 Acetaminophen 325 Mg Tablet PO 650 mg Q4H PRN Administration Mild Pain (1-3) or Fever Hydrocodone Bitart/Acetaminophen 1 tab 12/14/22 19:48 12/19/22 23:00 Hydrocodone/Acetaminophen (*Crx) 5-325 Mg Tablet PO 1 tab Q4H PRN Administration Moderate Pain (4-6) Amlodipine Besylate 10 mg 12/14/22 21:05 12/21/22 08:13 Amlodipine Besylate 5 Mg Tablet PO 10 mg QAM EDI Administration Baclofen 10 mg 12/14/22 21:35 12/21/22 08:14 Baclofen 10 Mg Tablet PO 10 mg BID EDI Administration Clonidine HCl 0.2 mg 12/19/22 09:00 12/21/22 08:14 Clonidine Hcl 0.2 Mg Tablet PO 0.2 mg Q12HR EDI Administration Docusate Sodium 100 mg 12/20/22 09:00 12/21/22 08:14 Docusate Sodium 100 Mg Capsule PO 100 mg DAILY EDI Administration Enoxaparin Sodium 40 mg 12/20/22 09:00 12/21/22 08:15 Enoxaparin 40 Mg/0.4 Ml Syringe SUB-Q 40 mg DAILY EDI Administration Fenofibrate 145 mg 12/15/22 09:00 12/21/22 08:14 Fenofibrate Nanocrystallized 145 Mg Tablet PO 145 mg DAILY EDI Administration Ferrous Sulfate 325 mg 12/15/22 09:00 12/21/22 08:14 Ferrous Sulfate [address] BY MOUTH 325 mg BID EDI Administration Fluconazole 400 mg 12/21/22 09:00 12/21/22 08:15 Fluconazole 100 Mg Tablet PO 400 mg QAM EDI Administration Folic Acid 2 mg 12/15/22 09:00 12/21/22 08:14 Folic Acid 1 Mg Tablet PO 2 mg DAILY EDI Administration Gabapentin 600 mg 12/15/22 09:00 12/21/22 08:13 Gabapentin 300 Mg Capsule PO 600 mg TID EDI Administration Hydralazine HCl 20 mg 12/18/22 05:27 12/20/22 12:49 Hydralazine Hcl 20 Mg/Ml Vial IV PUSH 20 mg Q4H PRN Administration SBP greater than 160 Hydrochlorothiazide 12.5 mg 12/15/22 09:00 12/21/22 08:15 H
[2022-12-21 09:06] LABS: Atypical Lymphocytes Present
[2022-12-21] MEDS: ACETAMINOPHEN 325 MG TABLET 650 MG PO (16:14)
--- NOTE | 2022-12-21 16:15 | PC.NURSE ---
Pt stated pain is 6 out of 10, this rn retrieved appropiate medication for that scale; pt stated he did not want the appropriate med ordered and 'just wants tylenol.' This rn wasted the medication with second rn and pulled tylenol from the pyxis.
[2022-12-22] MEDS: hydrALAZINE HCL 20 MG/ML VIAL IV PUSH (00:09)
[2022-12-22] MEDS: PIPERACILLIN/TAZ 4.5G/NS 100ML 4.5 GM/100 ML BAG IVPB ×5 (00:09→23:38)
[2022-12-22 01:13] VITALS: BP 158/69
[2022-12-22 04:00] VITALS: BP 155/70; PULSE 84; RESP 16; TEMP 35.8; O2SAT 100
[2022-12-22 06:20] LABS: Hematocrit 32.5 % (42.0-52.0); Hemoglobin 10.8 g/dL (14.0-18.0); Mean Corpuscular HGB Conc 33.2 g/dl (32-36); Mean Corpuscular Hemoglobin 28.9 pg (26-34); Mean Corpuscular Volume 86.9 fl (80-100); Mean Platelet Volume 11.9 fl (7.4-10.4); Platelet Count Result 293 k/mm3 (150-375); Red Blood Count 3.74 M/mm3 (4.6-6.20); Red Cell Distribution Width 15.3 % (11.5-14.5); White Blood Count 21.2 K/mm3 (4.5-10.0)
[2022-12-22 06:41] LABS: Alanine Aminotransferase 13 U/L (6-50); Albumin Level 3.4 g/dL (3.5-5.1); Alkaline Phosphatase 53 U/L (38-126); Anion Gap 12 mmol/L (8-16); Aspartate Amino Transferase 33 U/L (17-59); Bilirubin,Total 0.8 mg/dL (0.2-1.3); Blood Urea Nitrogen 27 mg/dL (9-20); Calcium 9.1 mg/dL (8.4-10.2); Carbon Dioxide 26 mmol/L (22-30); Chloride 102 mmol/L (98-107); Estimated CRCL calculation 70 ml/min; Estimated Glomerular Filt Rate > 60; Glucose 109 mg/dL (65-110); Magnesium 1.9 mg/dL (1.6-2.3); Potassium 3.9 mmol/L (3.4-5.0); Sodium 140 mmol/L (137-145)
[2022-12-22 06:49] LABS: Band Neutrophils Percent 2 % (0-6); Eosinophils Absolute Manual 0.21 K/mm3 (0.02-0.5); Eosinophils Percent Manual 1 % (0-4); Lymphocytes Absolute Manual 3.81 K/mm3 (1.1-4.5); Lymphocytes Percent Manual 18 % (18-44); Metamyelocytes Percent 2 %; Monocytes Absolute Manual 1.48 K/mm3 (0.1-0.90); Monocytes Percent Manual 7 % (3-9); Neutrophils Absolute Manual 15.26 K/mm3 (1.3-6.7); Neutrophils Percent Manual 70 % (46-73); Total Cells Counted 100
[2022-12-22 06:50] LABS: Atypical Lymphocytes Present; Platelet Estimate Adequate (Adequate); Schistocytes None Seen (NORMAL)
--- NOTE | 2022-12-22 07:55 | PM.IMPN ---
Progress Note: A&P Assessment and Plan (1) Acute cholecystitis: Code(s): K81.0 - Acute cholecystitis Status: Acute Assessment and Plan: Nausea vomiting abdominal pain right upper quadrant consistent with cholecystitis, CT consistent with cholecystitis -general surgery consulted: placed johnathon drain and is leaning towards conservative management due to co-morbidities -RUQ US revealing acute cholecystitis -antibiotics: Zosyn. Dropping vanco with Cr trending up and zosyn combo. Fungal studies are negative. Diflucan stopped. -Prelaminarly cultures from gallbladder: Aerobic culture with no growth, Anaerobic gram stain with moderate WBC and rare gram + cocci in pairs. MRSA swab pending. -pain control: Tylenol, Alex, morphine -leukocytosis 21,000 on admission. Now worsening despite johnathon drain and zosyn ;WBC 21,000 -T Bili normal -MRCP did not show any stone obstruction or stricture -blood cultures no growth to date. Repeat blood cultures in setting of low grade fever overnight (100.1, suspect this is suppressed given regular use of acetaminophen) and increasing leukocytosis -obtain lactic, negative -CT abdomen and pelvis ordered and shows new liver abscess. Per IR, abscess is too small for drain at this time. -perc drain cholecystostomy placed 12/18 (2) Hypertension: Code(s): I10 - Essential (primary) hypertension Status: Chronic Assessment and Plan: -elevated blood pressure in the ED up to 200 systolic -continue home medications -p.r.n. hydralazine -on aspirin 81 mg -increased clonidine dose from 0.1 mg BID to 0.2 mg BID. Systolics in the 150-160's now. (3) Seizure disorder: Code(s): G40.909 - Epilepsy, unspecified, not intractable, without status epilepticus Status: Chronic Assessment and Plan: -Continue phenytoin. Patient should not be on tramadol with seizure disorder. -Recent phenytoin level was 5ug/ml -Recent CROW on admission and recent vanco/zosyn combo makes me hesitant to adjust dose given renal function can effect decrease drug binding. -Will repeat phenytoin level prior to D/C. Already ordered. (4) History of CVA (cerebrovascular accident): Code(s): Z86.73 - Personal history of transient ischemic attack (TIA), and cerebral infarction without residual deficits Status: Chronic Assessment and Plan: Right-sided deficits and dysarthria, fenofibrate, statin (5) CROW (acute kidney injury): Code(s): N17.9 - Acute kidney failure, unspecified Status: Acute Assessment and Plan: Patient with elevated BUN and creatinine today of 41/1.8. Continue to monitor closely BUN and creatinine today 29/1.3 Plan Continue with drain management Low fat diet PT/OT consult and recommends home health. Patient declining home health therapy. \ Will obtain repeat CT abdomen on Saturday to monitor liver abscess. 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 Feeding:Low fat diet Analgesia:morphine, norco, acetaminophen Thromboembolic prophylaxis: SCDs Ulcer prophylaxis: Protonix Glycemic control: N/A, blood glucose on BMP 121 Bowel regimen: Colace and miralax Lines: PIV Drains: Percutaneous johnathon tube Antibiotics: Zosyn Subjective Date/time seen: 12/22/22 07:55 Interval history: HPI obtained from chart, Patient is a 57-year-old male with past medical history of CVA with right-sided deficit and dysarthria, essential hypertension, GERD, hyperlipidemia, DVT, history of seizure disorder, abdominal hernia who presents to ED with complaints of nausea vomiting.? Patient states anything he tried to eat let him to vomit.? Nothing alleviated symptoms.? He has not had nausea vomiting like this before.? He does have and umbilical hernia and a ventral hernia, apparently has had history is of hernias with right inguinal repair in 2019.? He still has a gallbladder and
[2022-12-22] MEDS: hydroCHLOROthiazide 12.5 MG CAPSULE PO (08:33)
[2022-12-22] MEDS: FOLIC ACID 1 MG TABLET 2 MG PO (08:33)
[2022-12-22] MEDS: PHENYTOIN SODIUM 100 MG EXTENDED RELEASE CAP 300 MG PO ×2 (08:33→17:13)
[2022-12-22] MEDS: FENOFIBRATE NANOCRYSTALLIZED 145 MG TABLET PO (08:33)
[2022-12-22] MEDS: polyethylene glycoL 3350 17 GM POWD.PACK PO (08:33)
[2022-12-22] MEDS: LOSARTAN POTASSIUM 100 MG TABLET PO (08:34)
[2022-12-22] MEDS: GABAPENTIN 300 MG CAPSULE 600 MG PO ×3 (08:34→17:13)
[2022-12-22] MEDS: ACETAMINOPHEN 325 MG TABLET 650 MG PO ×2 (08:34→20:38)
[2022-12-22] MEDS: FERROUS SULFATE 325 MG TABLET DR BY MOUTH ×2 (08:34→17:13)
[2022-12-22] MEDS: cloNIDine HCL 0.2 MG TABLET PO ×2 (08:34→20:31)
[2022-12-22] MEDS: BACLOFEN 10 MG TABLET PO ×2 (08:34→17:13)
[2022-12-22] MEDS: DOCUSATE SODIUM 100 MG CAPSULE PO (08:34)
[2022-12-22] MEDS: PANTOPRAZOLE 40 MG TABLET PO (08:34)
[2022-12-22] MEDS: amLODIPine BESYLATE 5 MG TABLET 10 MG PO (08:34)
[2022-12-22] MEDS: POTASSIUM CHLORIDE 10 MEQ ER TABLET PO (08:34)
[2022-12-22] MEDS: ENOXAPARIN 40 MG/0.4 ML SYRINGE SUB-Q (08:35)
--- NOTE | 2022-12-22 12:17 | PM.PNGS ---
Progress Note: A&P Assessment and Plan (1) Liver abscess: Code(s): K75.0 - Abscess of liver Status: Acute Assessment and Plan: Liver abscess is too small to drain percutaneously by Radiology. Continue IV antibiotics. May need to repeat CT scan in a couple of days. No fever but white blood cell count continues to be stable around 20,000. (2) Acute cholecystitis: Code(s): K81.0 - Acute cholecystitis Status: Acute Assessment and Plan: Gallbladder has been drained with percutaneous cholecystostomy tube. Will eventually need and interval laparoscopic cholecystectomy. Subjective Subjective Date/Time Seen: 12/22/22 12:17 Interval history: Patient is stable clinically. He denies having any abdominal pain. No nausea. He is tolerating a low-fat diet. White blood cell count is essentially stable at around 21,000. He has had no fever in the last 24hours. He continues to have output from his cholecystostomy tube. Exam GI: Other: Abdomen is soft and nondistended. There is dark bile with particulate matter coming from the cholecystostomy drain. Drain site on the abdominal wall is okay with no redness. Palpation of the gallbladder. Objective Data Vital Signs Vital Signs: Vital Signs - 24 hr 12/21/22 14:00 12/21/22 17:57 12/21/22 22:00 Temperature 36.5 C 36.7 C 36.4 C L Pulse Rate 64 80 77 Respiratory Rate 20 20 16 Blood Pressure 115/59 L 148/67 H 153/73 H Pulse Oximetry 95 98 99 Oxygen Delivery 12/21/22 23:58 12/22/22 01:13 12/22/22 04:00 Temperature 36.1 C L 35.8 C L Pulse Rate 85 84 Respiratory Rate 18 16 Blood Pressure 175/83 H 158/69 H 155/70 H Pulse Oximetry 98 100 Oxygen Delivery 12/22/22 08:30 Temperature Pulse Rate Respiratory Rate Blood Pressure Pulse Oximetry Oxygen Delivery Room Air Intake/Output Intake/Output: Intake & Output 12/19/22 12/20/22 12/21/22 12/22/22 23:59 23:59 23:59 23:59 Intake Total 2862 3330 2365 640 Output Total 1230 1185 1150 50 Balance 1632 2145 1215 590 Meds/Results Medications: Active Medications Generic Name Dose Route Start Last Admin Trade Name Freq PRN Reason Stop Dose Admin Acetaminophen 650 mg 12/14/22 19:48 12/22/22 08:34 Acetaminophen 325 Mg Tablet PO 650 mg Q4H PRN Administration Mild Pain (1-3) or Fever Hydrocodone Bitart/Acetaminophen 1 tab 12/14/22 19:48 12/19/22 23:00 Hydrocodone/Acetaminophen (*Crx) 5-325 Mg Tablet PO 1 tab Q4H PRN Administration Moderate Pain (4-6) Amlodipine Besylate 10 mg 12/14/22 21:05 12/22/22 08:34 Amlodipine Besylate 5 Mg Tablet PO 10 mg QAM EDI Administration Baclofen 10 mg 12/14/22 21:35 12/22/22 08:34 Baclofen 10 Mg Tablet PO 10 mg BID EDI Administration Clonidine HCl 0.2 mg 12/19/22 09:00 12/22/22 08:34 Clonidine Hcl 0.2 Mg Tablet PO 0.2 mg Q12HR EDI Administration Docusate Sodium 100 mg 12/20/22 09:00 12/22/22 08:34 Docusate Sodium 100 Mg Capsule PO 100 mg DAILY EDI Administration Enoxaparin Sodium 40 mg 12/20/22 09:00 12/22/22 08:35 Enoxaparin 40 Mg/0.4 Ml Syringe SUB-Q 40 mg DAILY EDI Administration Fenofibrate 145 mg 12/15/22 09:00 12/22/22 08:33 Fenofibrate Nanocrystallized 145 Mg Tablet PO 145 mg DAILY EDI Administration Ferrous Sulfate 325 mg 12/15/22 09:00 12/22/22 08:34 Ferrous Sulfate [address] BY MOUTH 325 mg BID EDI Administration Folic Acid 2 mg 12/15/22 09:00 12/22/22 08:33 Folic Acid 1 Mg Tablet PO 2 mg DAILY EDI Administration Gabapentin 600 mg 12/15/22 09:00 12/22/22 08:34 Gabapentin 300 Mg Capsule PO 600 mg TID EDI Administration Hydralazine HCl 20 mg 12/18/22 05:27 12/22/22 00:09 Hydralazine Hcl 20 Mg/Ml Vial IV PUSH 20 mg Q4H PRN Administration SBP greater than 160 Hydrochlorothiazide 12.5 mg 12/15/22 09:00 12/22/22 08:33 Hydrochlorothiazide 12.5 Mg Capsule PO
[2022-12-22 14:00] VITALS: BP 130/67; PULSE 100; RESP 14; TEMP 37; O2SAT 100
[2022-12-22 21:55] VITALS: PULSE 80; RESP 18; O2SAT 97
[2022-12-22 22:00] VITALS: BP 152/71; PULSE 84; RESP 14; TEMP 36.3; O2SAT 100
[2022-12-23] MEDS: PIPERACILLIN/TAZ 4.5G/NS 100ML 4.5 GM/100 ML BAG IVPB ×4 (05:02→23:40)
[2022-12-23 06:00] VITALS: BP 144/69; PULSE 76; RESP 16; TEMP 36.1; O2SAT 100
[2022-12-23 06:06] LABS: Hematocrit 30.7 % (42.0-52.0); Hemoglobin 9.9 g/dL (14.0-18.0); Mean Corpuscular HGB Conc 32.2 g/dl (32-36); Mean Corpuscular Hemoglobin 28.5 pg (26-34); Mean Corpuscular Volume 88.5 fl (80-100); Mean Platelet Volume 12.1 fl (7.4-10.4); Platelet Count Result 305 k/mm3 (150-375); Red Blood Count 3.47 M/mm3 (4.6-6.20); Red Cell Distribution Width 15.9 % (11.5-14.5); White Blood Count 20.2 K/mm3 (4.5-10.0)
[2022-12-23 06:32] LABS: Anisocytosis 1+ (NORMAL); Band Neutrophils Percent 1 % (0-6); Eosinophils Percent Manual 3 % (0-4); Lymphocytes Absolute Manual 3.63 K/mm3 (1.1-4.5); Lymphocytes Percent Manual 18 % (18-44); Metamyelocytes Percent 1 %; Monocytes Absolute Manual 1.41 K/mm3 (0.1-0.90); Monocytes Percent Manual 7 % (3-9); Neutrophils Absolute Manual 14.34 K/mm3 (1.3-6.7); Neutrophils Percent Manual 70 % (46-73); Platelet Estimate Adequate (Adequate); Schistocytes None Seen (NORMAL); Total Cells Counted 100
[2022-12-23] MEDS: PANTOPRAZOLE 40 MG TABLET PO (08:02)
[2022-12-23] MEDS: ACETAMINOPHEN 325 MG TABLET 650 MG PO ×3 (08:02→19:59)
[2022-12-23] MEDS: PHENYTOIN SODIUM 100 MG EXTENDED RELEASE CAP 300 MG PO ×2 (08:02→17:12)
[2022-12-23] MEDS: LOSARTAN POTASSIUM 100 MG TABLET PO (08:02)
[2022-12-23] MEDS: GABAPENTIN 300 MG CAPSULE 600 MG PO ×3 (08:02→17:13)
[2022-12-23] MEDS: ENOXAPARIN 40 MG/0.4 ML SYRINGE SUB-Q (08:02)
[2022-12-23] MEDS: amLODIPine BESYLATE 5 MG TABLET 10 MG PO (08:03)
[2022-12-23] MEDS: FERROUS SULFATE 325 MG TABLET DR BY MOUTH ×2 (08:03→17:13)
[2022-12-23] MEDS: cloNIDine HCL 0.2 MG TABLET PO ×2 (08:03→19:59)
[2022-12-23] MEDS: POTASSIUM CHLORIDE 10 MEQ ER TABLET PO (08:03)
[2022-12-23] MEDS: FOLIC ACID 1 MG TABLET 2 MG PO (08:03)
[2022-12-23] MEDS: hydroCHLOROthiazide 12.5 MG CAPSULE PO (08:03)
[2022-12-23] MEDS: FENOFIBRATE NANOCRYSTALLIZED 145 MG TABLET PO (08:03)
[2022-12-23] MEDS: BACLOFEN 10 MG TABLET PO ×2 (08:03→17:13)
--- NOTE | 2022-12-23 08:25 | PM.IMPN ---
Progress Note: A&P Assessment and Plan (1) Acute cholecystitis: Code(s): K81.0 - Acute cholecystitis Status: Acute Assessment and Plan: Nausea vomiting abdominal pain right upper quadrant consistent with cholecystitis, CT consistent with cholecystitis -general surgery consulted: placed johnathon drain and is leaning towards conservative management due to co-morbidities -RUQ US revealing acute cholecystitis -antibiotics: Zosyn. Dropping vanco with Cr trending up and zosyn combo. Fungal studies are negative. Diflucan stopped. -Prelaminarly cultures from gallbladder: Aerobic culture with no growth, Anaerobic gram stain with moderate WBC and rare gram + cocci in pairs. MRSA negative. -Culture from drain anaerobic culture with WBC and rare gram positive bacilli. -pain control: Tylenol, [place], morphine -leukocytosis 21,000 on admission. Stable at 20,000. -T Bili normal -MRCP did not show any stone obstruction or stricture -blood cultures no growth to date. Repeat blood cultures in setting of low grade fever overnight (100.1, suspect this is suppressed given regular use of acetaminophen) and increasing leukocytosis -obtain lactic, negative -CT abdomen and pelvis ordered and shows new liver abscess. Per IR, abscess is too small for drain at this time. -perc drain cholecystostomy placed 12/18 (2) Hypertension: Code(s): I10 - Essential (primary) hypertension Status: Chronic Assessment and Plan: -elevated blood pressure in the ED up to 200 systolic -continue home medications -p.r.n. hydralazine -on aspirin 81 mg -increased clonidine dose from 0.1 mg BID to 0.2 mg BID. Systolics in the 150-160's now. (3) Seizure disorder: Code(s): G40.909 - Epilepsy, unspecified, not intractable, without status epilepticus Status: Chronic Assessment and Plan: -Continue phenytoin. Patient should not be on tramadol with seizure disorder. -Recent phenytoin level was 5ug/ml -Recent CROW on admission and recent vanco/zosyn combo makes me hesitant to adjust dose given renal function can effect decrease drug binding. -Will repeat phenytoin level prior to D/C. Already ordered. (4) History of CVA (cerebrovascular accident): Code(s): Z86.73 - Personal history of transient ischemic attack (TIA), and cerebral infarction without residual deficits Status: Chronic Assessment and Plan: Right-sided deficits and dysarthria, fenofibrate, statin (5) CROW (acute kidney injury): Code(s): N17.9 - Acute kidney failure, unspecified Status: Acute Assessment and Plan: Patient with elevated BUN and creatinine today of 41/1.8. Continue to monitor closely BUN and creatinine today 29/1.3 Plan Continue with drain management Low fat diet PT/OT consult and recommends home health. Patient declining home health therapy. \ Will obtain repeat CT abdomen on Saturday to monitor liver abscess. 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 Feeding:Low fat diet Analgesia:morphine, norco, acetaminophen Thromboembolic prophylaxis: SCDs Ulcer prophylaxis: Protonix Glycemic control: N/A, blood glucose on BMP 121 Bowel regimen: Colace and miralax Lines: PIV Drains: Percutaneous johnathon tube Antibiotics: Zosyn Subjective Date/time seen: 12/23/22 08:25 Interval history: HPI obtained from chart, Patient is a 57-year-old male with past medical history of CVA with right-sided deficit and dysarthria, essential hypertension, GERD, hyperlipidemia, DVT, history of seizure disorder, abdominal hernia who presents to ED with complaints of nausea vomiting.? Patient states anything he tried to eat let him to vomit.? Nothing alleviated symptoms.? He has not had nausea vomiting like this before.? He does have and umbilical hernia and a ventral hernia, apparently has had history is of hernias with right inguinal repair
[2022-12-23 09:12] LABS: Alanine Aminotransferase 14 U/L (6-50); Albumin Level 3.4 g/dL (3.5-5.1); Alkaline Phosphatase 41 U/L (38-126); Anion Gap 13 mmol/L (8-16); Aspartate Amino Transferase 31 U/L (17-59); Bilirubin,Total 0.9 mg/dL (0.2-1.3); Blood Urea Nitrogen 24 mg/dL (9-20); Calcium 9.1 mg/dL (8.4-10.2); Carbon Dioxide 21 mmol/L (22-30); Chloride 104 mmol/L (98-107); Estimated CRCL calculation 89 ml/min; Estimated Glomerular Filt Rate > 60; Glucose 92 mg/dL (65-110); Phosphorus 3.5 mg/dL (2.5-4.5); Potassium 4.6 mmol/L (3.4-5.0); Sodium 138 mmol/L (137-145)
--- NOTE | 2022-12-23 12:48 | PM.PNGS ---
Progress Note: A&P Assessment and Plan (1) Liver abscess: Code(s): K75.0 - Abscess of liver Status: Acute Assessment and Plan: White blood cell count has been stable around 20,000. CT scan 3 days ago revealed liver abscesses which were too small to percutaneously drain. Will recommend getting another CT scan tomorrow with IV contrast to see if the liver abscesses have enlarged to the point that can be drained. Continue IV antibiotics. (2) Acute cholecystitis: Code(s): K81.0 - Acute cholecystitis Status: Acute Assessment and Plan: Cholecystostomy tube in place draining the gallbladder. Eventually patient will need an interval laparoscopic cholecystectomy after liver abscesses have resolved Subjective Subjective Date/Time Seen: 12/23/22 12:48 Interval history: Patient is sitting up eating regular lunch without any complaints. No fever. Blood cell count is still about 20,000. Essentially stable. No fever. Exam GI: Other: Abdomen is soft and obese but nondistended. Nontender. Cholecystostomy tube drain output is nonpurulent. Objective Data Vital Signs Vital Signs: Vital Signs - 24 hr 12/22/22 14:00 12/22/22 20:00 12/22/22 21:55 Temperature 37.0 C Pulse Rate 100 80 Respiratory Rate 14 18 Blood Pressure 130/67 Pulse Oximetry 100 Oxygen Delivery Room Air 12/22/22 21:55 12/22/22 22:00 12/23/22 06:00 Temperature 36.3 C L 36.1 C L Pulse Rate 84 76 Respiratory Rate 14 16 Blood Pressure 152/71 H 144/69 H Pulse Oximetry 97 100 100 Oxygen Delivery Room Air 12/23/22 08:00 Temperature Pulse Rate Respiratory Rate Blood Pressure Pulse Oximetry Oxygen Delivery Room Air Intake/Output Intake/Output: Intake & Output 12/20/22 12/21/22 12/22/22 12/23/22 23:59 23:59 23:59 23:59 Intake Total 3330 2365 1300 750 Output Total 1185 1150 755 315 Balance 2145 1215 545 435 Meds/Results Medications: Active Medications Generic Name Dose Route Start Last Admin Trade Name Freq PRN Reason Stop Dose Admin Acetaminophen 650 mg 12/14/22 19:48 12/23/22 12:09 Acetaminophen 325 Mg Tablet PO 650 mg Q4H PRN Administration Mild Pain (1-3) or Fever Hydrocodone Bitart/Acetaminophen 1 tab 12/14/22 19:48 12/19/22 23:00 Hydrocodone/Acetaminophen (*Crx) 5-325 Mg Tablet PO 1 tab Q4H PRN Administration Moderate Pain (4-6) Amlodipine Besylate 10 mg 12/14/22 21:05 12/23/22 08:03 Amlodipine Besylate 5 Mg Tablet PO 10 mg QAM EDI Administration Baclofen 10 mg 12/14/22 21:35 12/23/22 08:03 Baclofen 10 Mg Tablet PO 10 mg BID EDI Administration Clonidine HCl 0.2 mg 12/19/22 09:00 12/23/22 08:03 Clonidine Hcl 0.2 Mg Tablet PO 0.2 mg Q12HR EDI Administration Docusate Sodium 100 mg 12/20/22 09:00 12/23/22 08:04 Docusate Sodium 100 Mg Capsule PO Not Given DAILY EDI Enoxaparin Sodium 40 mg 12/20/22 09:00 12/23/22 08:02 Enoxaparin 40 Mg/0.4 Ml Syringe SUB-Q 40 mg DAILY EDI Administration Fenofibrate 145 mg 12/15/22 09:00 12/23/22 08:03 Fenofibrate Nanocrystallized 145 Mg Tablet PO 145 mg DAILY EDI Administration Ferrous Sulfate 325 mg 12/15/22 09:00 12/23/22 08:03 Ferrous Sulfate [address] BY MOUTH 325 mg BID EDI Administration Folic Acid 2 mg 12/15/22 09:00 12/23/22 08:03 Folic Acid 1 Mg Tablet PO 2 mg DAILY EID Administration Gabapentin 600 mg 12/15/22 09:00 12/23/22 12:05 Gabapentin 300 Mg Capsule PO 600 mg TID EDI Administration Hydralazine HCl 20 mg 12/18/22 05:27 12/22/22 00:09 Hydralazine Hcl 20 Mg/Ml Vial IV PUSH 20 mg Q4H PRN Administration SBP greater than 160 Hydrochlorothiazide 12.5 mg 12/15/22 09:00 12/23/22 08:03 Hydrochlorothiazide 12.5 Mg Capsule PO 12.5 mg DAILY EDI Administration Piperacillin Sod/Tazobactam Sod 4.5 gm in 100 mls @ 200 mls/hr 12/19/22 17:00 12/23/22 12:40 Zo
[2022-12-23 14:00] VITALS: BP 155/79; PULSE 81; RESP 18; O2SAT 100
[2022-12-23 21:56] VITALS: BP 167/77; PULSE 82; RESP 20; TEMP 36.3; O2SAT 100
[2022-12-24] MEDS: PIPERACILLIN/TAZ 4.5G/NS 100ML 4.5 GM/100 ML BAG IVPB ×3 (05:31→17:41)
[2022-12-24 06:00] VITALS: BP 163/80; PULSE 76; RESP 18; TEMP 36.7; O2SAT 98
[2022-12-24] MEDS: hydrALAZINE HCL 20 MG/ML VIAL IV PUSH ×2 (06:42→21:39)
[2022-12-24 06:49] LABS: Basophils Absolute Auto 0.1 K/mm3 (0.0-0.1); Basophils Percent Auto 0.7 % (0.2-1.2); Eosinophils Absolute Auto 0.4 K/mm3 (0-0.3); Eosinophils Percent Auto 2.4 % (0-4.4); Hematocrit 33.5 % (42.0-52.0); Hemoglobin 10.8 g/dL (14.0-18.0); Immature Granulocyte Absolute 0.32 K/mm3 (0.00-0.031); Immature Granulocyte Percent A 2.1 % (0-0.5); Lymphocytes Absolute Auto 2.67 K/mm3 (0.9-3.2); Lymphocytes Percent Auto 17.7 % (18.3-44.2); Mean Corpuscular HGB Conc 32.2 g/dl (32-36); Mean Corpuscular Hemoglobin 28.8 pg (26-34); Mean Corpuscular Volume 89.3 fl (80-100); Mean Platelet Volume 11.3 fl (7.4-10.4); Monocytes Absolute Auto 1.1 K/mm3 (0.1-0.6); Monocytes Percent Auto 7.4 % (2.6-8.5); Neutrophils Absolute Auto 10.5 K/mm3 (1.3-6.7); Neutrophils Percent Auto 69.7 % (45.5-73.1); Platelet Count Result 328 k/mm3 (150-375); Red Blood Count 3.75 M/mm3 (4.6-6.20); Red Cell Distribution Width 15.7 % (11.5-14.5); White Blood Count 15.1 K/mm3 (4.5-10.0)
[2022-12-24 07:04] LABS: Phenytoin Dilantin 6 ug/mL (10-20)
[2022-12-24 07:11] LABS: Alanine Aminotransferase 14 U/L (6-50); Albumin Level 3.6 g/dL (3.5-5.1); Alkaline Phosphatase 48 U/L (38-126); Anion Gap 11 mmol/L (8-16); Aspartate Amino Transferase 25 U/L (17-59); Bilirubin,Total 0.6 mg/dL (0.2-1.3); Blood Urea Nitrogen 21 mg/dL (9-20); Calcium 9.4 mg/dL (8.4-10.2); Carbon Dioxide 24 mmol/L (22-30); Chloride 104 mmol/L (98-107); Estimated CRCL calculation 82 ml/min; Estimated Glomerular Filt Rate > 60; Glucose 105 mg/dL (65-110); Magnesium 1.7 mg/dL (1.6-2.3); Potassium 4.2 mmol/L (3.4-5.0); Sodium 139 mmol/L (137-145)
--- NOTE | 2022-12-24 09:17 | PM.IMPN ---
Progress Note: A&P Assessment and Plan (1) Acute cholecystitis: Code(s): K81.0 - Acute cholecystitis Status: Acute Assessment and Plan: Nausea vomiting abdominal pain right upper quadrant consistent with cholecystitis, CT consistent with cholecystitis -general surgery consulted: placed johnathon drain and is leaning towards conservative management due to co-morbidities -RUQ US revealing acute cholecystitis -antibiotics: Currently on Zosyn. He will d/c home on 2 gram Rocephin daily and flagyl TID for a total of 6 weeks with starting date of 12/21 and end date of 02/01. -Culture from drain anaerobic culture with WBC and rare gram positive bacilli. -pain control: Tylenol, [place], morphine -leukocytosis 21,000 on admission. Trending down, 15,000. -T Bili normal -MRCP did not show any stone obstruction or stricture -blood cultures no growth to date. Repeat blood cultures in setting of low grade fever overnight (100.1, suspect this is suppressed given regular use of acetaminophen) and increasing leukocytosis -obtain lactic, negative -CT abdomen and pelvis ordered and shows new liver abscess. Per IR, abscess is too small for drain at this time. -perc drain cholecystostomy placed 12/18 (2) Hypertension: Code(s): I10 - Essential (primary) hypertension Status: Chronic Assessment and Plan: -elevated blood pressure in the ED up to 200 systolic -continue home medications -p.r.n. hydralazine -on aspirin 81 mg -increased clonidine dose from 0.1 mg BID to 0.2 mg BID. Systolics in the 150-160's now. (3) Seizure disorder: Code(s): G40.909 - Epilepsy, unspecified, not intractable, without status epilepticus Status: Chronic Assessment and Plan: -Continue phenytoin. Patient should not be on tramadol with seizure disorder. -Recent phenytoin level was 5ug/ml -Recent CROW on admission and recent vanco/zosyn combo makes me hesitant to adjust dose given renal function can effect decrease drug binding. -Will repeat phenytoin level prior to D/C. Already ordered. (4) History of CVA (cerebrovascular accident): Code(s): Z86.73 - Personal history of transient ischemic attack (TIA), and cerebral infarction without residual deficits Status: Chronic Assessment and Plan: Right-sided deficits and dysarthria, fenofibrate, statin (5) CROW (acute kidney injury): Code(s): N17.9 - Acute kidney failure, unspecified Status: Acute Assessment and Plan: Patient with elevated BUN and creatinine today of 41/1.8. Continue to monitor closely BUN and creatinine today 29/1.3 Plan PICC line placement pending tomorrow He will d/c home on 2 gram Rocephin daily and flagyl PO TID for a total of 6 weeks with starting date of 12/21 and end date of 02/01. Feeding:Low fat diet Analgesia:morphine, norco, acetaminophen Thromboembolic prophylaxis: SCDs Ulcer prophylaxis: Protonix Glycemic control: N/A, blood glucose on BMP 121 Bowel regimen: Colace and miralax Lines: PIV Drains: Percutaneous johnathon tube Antibiotics: Zosyn Subjective Date/time seen: 12/24/22 09:17 Interval history: HPI obtained from chart, Patient is a 57-year-old male with past medical history of CVA with right-sided deficit and dysarthria, essential hypertension, GERD, hyperlipidemia, DVT, history of seizure disorder, abdominal hernia who presents to ED with complaints of nausea vomiting.? Patient states anything he tried to eat let him to vomit.? Nothing alleviated symptoms.? He has not had nausea vomiting like this before.? He does have and umbilical hernia and a ventral hernia, apparently has had history is of hernias with right inguinal repair in 2019.? He still has a gallbladder and appendix. In the ED:? Patient is found have leukocytosis WBC 21.5 K, he was given Rocephin and Flagyl antibiotic, 1 L fluid bolus.? Abdominal CT scan concerning for acute cholecystitis.? General surgery wa
[2022-12-24] MEDS: PHENYTOIN SODIUM 100 MG EXTENDED RELEASE CAP 300 MG PO ×2 (09:26→17:41)
[2022-12-24] MEDS: amLODIPine BESYLATE 5 MG TABLET 10 MG PO (09:26)
[2022-12-24] MEDS: PANTOPRAZOLE 40 MG TABLET PO (09:26)
[2022-12-24] MEDS: LOSARTAN POTASSIUM 100 MG TABLET PO (09:27)
[2022-12-24] MEDS: FERROUS SULFATE 325 MG TABLET DR BY MOUTH ×2 (09:27→17:42)
[2022-12-24] MEDS: FOLIC ACID 1 MG TABLET 2 MG PO (09:27)
[2022-12-24] MEDS: GABAPENTIN 300 MG CAPSULE 600 MG PO ×3 (09:27→17:41)
[2022-12-24] MEDS: FENOFIBRATE NANOCRYSTALLIZED 145 MG TABLET PO (09:27)
[2022-12-24] MEDS: cloNIDine HCL 0.2 MG TABLET PO ×2 (09:27→21:38)
[2022-12-24] MEDS: DOCUSATE SODIUM 100 MG CAPSULE PO (09:27)
[2022-12-24] MEDS: POTASSIUM CHLORIDE 10 MEQ ER TABLET PO (09:27)
[2022-12-24] MEDS: BACLOFEN 10 MG TABLET PO ×2 (09:27→17:42)
[2022-12-24] MEDS: hydroCHLOROthiazide 12.5 MG CAPSULE PO (09:27)
[2022-12-24] MEDS: ENOXAPARIN 40 MG/0.4 ML SYRINGE SUB-Q (11:36)
[2022-12-24 13:45] VITALS: BP 177/74; PULSE 90; RESP 16; TEMP 36.4; O2SAT 100
[2022-12-24] MEDS: ACETAMINOPHEN 325 MG TABLET 650 MG PO ×2 (15:22→21:38)
--- NOTE | 2022-12-24 17:00 | PM.PNGS ---
Progress Note: A&P Assessment and Plan (1) Acute cholecystitis: Code(s): K81.0 - Acute cholecystitis Status: Acute Assessment and Plan: exam benign, WBC improving, cont drain, abx, low fat diet (2) Liver abscess: Code(s): K75.0 - Abscess of liver Status: Acute Assessment and Plan: CT reviewed and largely unchanged, cont abx, will consult c ID pharmacist re: likely need for outpt IV abx, will need interval CT to reassess as outpt Subjective Subjective Date/Time Seen: 12/24/22 17:00 Interval history: feels better, no abd pain, beto low fat diet Review of Systems Review of Systems: All systems reviewed & are unremarkable except as noted in HPI and below Exam Const: General: cooperative, comfortable and no acute distress Resp: Auscultation: clear to auscultation bilaterally Cardio: Rate: regular rate Rhythm: regular rhythm GI: Inspection: normal to inspection and distended GI Palp: No abdominal tenderness, Yes Soft to palpation, No Tenderness to palpation present (GI), No Guarding due to palpation present (GI) and No Rigid due to palpation Other: johnathon tube c thick, bilious drainage Objective Data Vital Signs Vital Signs: Vital Signs - 24 hr 12/23/22 20:00 12/23/22 21:56 12/24/22 06:00 Temperature 36.3 C L 36.7 C Pulse Rate 82 76 Respiratory Rate 20 18 Blood Pressure 167/77 H 163/80 H Pulse Oximetry 100 98 Oxygen Delivery Room Air 12/24/22 13:45 Temperature 36.4 C Pulse Rate 90 Respiratory Rate 16 Blood Pressure 177/74 H Pulse Oximetry 100 Oxygen Delivery Intake/Output Intake/Output: Intake & Output 12/21/22 12/22/22 12/23/22 12/24/22 23:59 23:59 23:59 23:59 Intake Total 2365 1300 1910 1173 Output Total 7806 132 6822 1450 Balance 1215 545 030 -566 Meds/Results Medications: Active Medications Generic Name Dose Route Start Last Admin Trade Name Freq PRN Reason Stop Dose Admin Acetaminophen 650 mg 12/14/22 19:48 12/24/22 15:22 Acetaminophen 325 Mg Tablet PO 650 mg Q4H PRN Administration Mild Pain (1-3) or Fever Hydrocodone Bitart/Acetaminophen 1 tab 12/14/22 19:48 12/19/22 23:00 Hydrocodone/Acetaminophen (*Crx) 5-325 Mg Tablet PO 1 tab Q4H PRN Administration Moderate Pain (4-6) Amlodipine Besylate 10 mg 12/14/22 21:05 12/24/22 09:26 Amlodipine Besylate 5 Mg Tablet PO 10 mg QAM EDI Administration Baclofen 10 mg 12/14/22 21:35 12/24/22 09:27 Baclofen 10 Mg Tablet PO 10 mg BID [facility] Administration Clonidine HCl 0.2 mg 12/19/22 09:00 12/24/22 09:27 Clonidine Hcl 0.2 Mg Tablet PO 0.2 mg Q12HR [facility] Administration Docusate Sodium 100 mg 12/20/22 09:00 12/24/22 09:27 Docusate Sodium 100 Mg Capsule PO 100 mg DAILY [facility] Administration Enoxaparin Sodium 40 mg 12/20/22 09:00 12/24/22 11:36 Enoxaparin 40 Mg/0.4 Ml Syringe SUB-Q 40 mg DAILY [facility] Administration Fenofibrate 145 mg 12/15/22 09:00 12/24/22 09:27 Fenofibrate Nanocrystallized 145 Mg Tablet PO 145 mg DAILY [facility] Administration Ferrous Sulfate 325 mg 12/15/22 09:00 12/24/22 09:27 Ferrous Sulfate [address] BY MOUTH 325 mg BID [facility] Administration Folic Acid 2 mg 12/15/22 09:00 12/24/22 09:27 Folic Acid 1 Mg Tablet PO 2 mg DAILY [facility] Administration Gabapentin 600 mg 12/15/22 09:00 12/24/22 12:16 Gabapentin 300 Mg Capsule PO 600 mg TID [facility] Administration Hydralazine HCl 20 mg 12/24/22 09:20 Hydralazine Hcl 20 Mg/Ml Vial IV PUSH Q4H PRN Blood Pressure - High Hydrochlorothiazide 12.5 mg 12/15/22 09:00 12/24/22 09:27 Hydrochlorothiazide 12.5 Mg Capsule PO 12.5 mg DAILY [facility] Administration Piperacillin Sod/Tazobactam Sod 4.5 gm in 100 mls @ 200 mls/hr 12/19/22 17:00 12/24/22 12:46 Zosyn 4.5 Gm/Ns 100 Ml IVPB Infused Q6HR [facility] Infusion Losartan Potassium 100 mg 12/15/22 09:00 09/11/23 09:27 Losartan Potassium
[2022-12-24 21:38] VITALS: BP 169/71; PULSE 78; RESP 20; TEMP 36.9; O2SAT 99
[2022-12-25 00:16] VITALS: BP 143/70
[2022-12-25] MEDS: PIPERACILLIN/TAZ 4.5G/NS 100ML 4.5 GM/100 ML BAG IVPB ×4 (02:45→18:05)
[2022-12-25] MEDS: hydrALAZINE HCL 20 MG/ML VIAL IV PUSH (05:40)
[2022-12-25] MEDS: ACETAMINOPHEN 325 MG TABLET 650 MG PO ×2 (05:40→10:05)
[2022-12-25 06:00] VITALS: BP 174/7; PULSE 96; RESP 20; TEMP 37.2; O2SAT 99
[2022-12-25 06:45] LABS: Basophils Absolute Auto 0.1 K/mm3 (0.0-0.1); Basophils Percent Auto 0.6 % (0.2-1.2); Eosinophils Absolute Auto 0.3 K/mm3 (0-0.3); Eosinophils Percent Auto 1.6 % (0-4.4); Hematocrit 33.4 % (42.0-52.0); Hemoglobin 10.8 g/dL (14.0-18.0); Immature Granulocyte Absolute 0.23 K/mm3 (0.00-0.031); Immature Granulocyte Percent A 1.2 % (0-0.5); Lymphocytes Absolute Auto 2.24 K/mm3 (0.9-3.2); Lymphocytes Percent Auto 11.7 % (18.3-44.2); Mean Corpuscular HGB Conc 32.3 g/dl (32-36); Mean Corpuscular Volume 89.5 fl (80-100); Mean Platelet Volume 11.4 fl (7.4-10.4); Monocytes Absolute Auto 1.6 K/mm3 (0.1-0.6); Monocytes Percent Auto 8.1 % (2.6-8.5); Neutrophils Absolute Auto 14.7 K/mm3 (1.3-6.7); Neutrophils Percent Auto 76.8 % (45.5-73.1); Platelet Count Result 379 k/mm3 (150-375); Red Blood Count 3.73 M/mm3 (4.6-6.20); Red Cell Distribution Width 15.6 % (11.5-14.5); White Blood Count 19.2 K/mm3 (4.5-10.0)
[2022-12-25 06:58] LABS: Alanine Aminotransferase 14 U/L (6-50); Albumin Level 3.6 g/dL (3.5-5.1); Alkaline Phosphatase 51 U/L (38-126); Anion Gap 13 mmol/L (8-16); Aspartate Amino Transferase 28 U/L (17-59); Bilirubin,Total 0.8 mg/dL (0.2-1.3); Blood Urea Nitrogen 18 mg/dL (9-20); Calcium 9.5 mg/dL (8.4-10.2); Carbon Dioxide 21 mmol/L (22-30); Chloride 104 mmol/L (98-107); Estimated CRCL calculation 82 ml/min; Estimated Glomerular Filt Rate > 60; Glucose 113 mg/dL (65-110); Magnesium 1.5 mg/dL (1.6-2.3); Potassium 4.4 mmol/L (3.4-5.0); Sodium 138 mmol/L (137-145)
--- NOTE | 2022-12-25 08:45 | PM.IMPN ---
Progress Note: A&P Assessment and Plan (1) Acute cholecystitis: Code(s): K81.0 - Acute cholecystitis Status: Acute Assessment and Plan: Nausea vomiting abdominal pain right upper quadrant consistent with cholecystitis, CT consistent with cholecystitis -general surgery consulted: placed johnathon drain and is leaning towards conservative management due to co-morbidities -RUQ US revealing acute cholecystitis -antibiotics: Currently on Zosyn. He will d/c home on 2 gram Rocephin daily and Flagyl TID for a total of 6 weeks with starting date of 12/21 and end date of 02/01. -Culture from drain anaerobic culture with WBC and rare gram positive bacilli. -pain control: Tylenol, [place], morphine -leukocytosis 21,000 on admission. Stable at 18,000. -T Bili normal -MRCP did not show any stone obstruction or stricture -blood cultures no growth to date. Repeat blood cultures in setting of low grade fever overnight (100.1, suspect this is suppressed given regular use of acetaminophen) and increasing leukocytosis -obtain lactic, negative -CT abdomen and pelvis ordered and shows new liver abscess. Per IR, abscess is too small for drain at this time. -perc drain cholecystostomy placed 12/18 (2) Hypertension: Code(s): I10 - Essential (primary) hypertension Status: Chronic Assessment and Plan: -elevated blood pressure in the ED up to 200 systolic -continue home medications -p.r.n. hydralazine -on aspirin 81 mg -increased clonidine dose from 0.1 mg BID to 0.2 mg BID. Systolics in the 150-160's now. (3) Seizure disorder: Code(s): G40.909 - Epilepsy, unspecified, not intractable, without status epilepticus Status: Chronic Assessment and Plan: -Continue phenytoin. Patient should not be on tramadol with seizure disorder. -Repeat level is 6 ug/ml. Currently on Phenytoin 300 mg PO TID. Will ask neurology for recommendations for titration. - I spoke with Dr. Quesada who expects the patient is not taking his phenytoin as prescribed. He has been getting here consistently. Will re-check phenytoin level in 3 days. (4) History of CVA (cerebrovascular accident): Code(s): Z86.73 - Personal history of transient ischemic attack (TIA), and cerebral infarction without residual deficits Status: Chronic Assessment and Plan: Right-sided deficits and dysarthria, fenofibrate, statin (5) CROW (acute kidney injury): Code(s): N17.9 - Acute kidney failure, unspecified Status: Acute Assessment and Plan: Patient with elevated BUN and creatinine today of 41/1.8. Continue to monitor closely BUN and creatinine today 13/05.10 Plan PICC line placement today He will d/c home on 2 gram Rocephin daily and flagyl PO TID for a total of 6 weeks with starting date of 12/21 and end date of 02/01. I have faxed the home infusion order and placed in patient chart. Phyentoin level was low. Neuro thinks he wasn't taking it appropriately at home. Will continue with 300 mg TID and re-check a level in 3 days as an outpatient. Feeding:Low fat diet Analgesia:morphine, norco, acetaminophen Thromboembolic prophylaxis: SCDs Ulcer prophylaxis: Protonix Glycemic control: N/A, blood glucose on BMP 121 Bowel regimen: Colace and miralax Lines: PIV Drains: Percutaneous johnathon tube Antibiotics: Zosyn Subjective Date/time seen: 12/25/22 08:45 Interval history: HPI obtained from chart, Patient is a 57-year-old male with past medical history of CVA with right-sided deficit and dysarthria, essential hypertension, GERD, hyperlipidemia, DVT, history of seizure disorder, abdominal hernia who presents to ED with complaints of nausea vomiting.? Patient states anything he tried to eat let him to vomit.? Nothing alleviated symptoms.? He has not had nausea vomiting like this before.? He does have and umbilical hernia and a ventral hernia, apparently has had history is of hernias with right
[2022-12-25] MEDS: FOLIC ACID 1 MG TABLET 2 MG PO (09:35)
[2022-12-25] MEDS: hydroCHLOROthiazide 12.5 MG CAPSULE PO (09:35)
[2022-12-25] MEDS: GABAPENTIN 300 MG CAPSULE 600 MG PO ×3 (09:35→17:32)
[2022-12-25] MEDS: FERROUS SULFATE 325 MG TABLET DR BY MOUTH ×2 (09:35→17:32)
[2022-12-25] MEDS: POTASSIUM CHLORIDE 10 MEQ ER TABLET PO (09:35)
[2022-12-25] MEDS: PANTOPRAZOLE 40 MG TABLET PO (09:36)
[2022-12-25] MEDS: amLODIPine BESYLATE 5 MG TABLET 10 MG PO (09:36)
[2022-12-25] MEDS: FENOFIBRATE NANOCRYSTALLIZED 145 MG TABLET PO (09:36)
[2022-12-25] MEDS: PHENYTOIN SODIUM 100 MG EXTENDED RELEASE CAP 300 MG PO ×2 (09:36→17:32)
[2022-12-25] MEDS: cloNIDine HCL 0.2 MG TABLET PO ×2 (09:37→21:42)
[2022-12-25] MEDS: BACLOFEN 10 MG TABLET PO ×2 (09:40→17:32)
[2022-12-25] MEDS: LOSARTAN POTASSIUM 100 MG TABLET PO (09:40)
[2022-12-25] MEDS: ENOXAPARIN 40 MG/0.4 ML SYRINGE SUB-Q (10:05)
[2022-12-25] MEDS: MAGNESIUM OXIDE 400 MG TABLET PO (13:27)
[2022-12-25] MEDS: LIDOCAINE HCL 1% PF INJ 5 ML VIAL INFILTRATE (13:50)
[2022-12-25 13:53] VITALS: BP 166/77; PULSE 94; RESP 18; TEMP 36.3; O2SAT 99
--- NOTE | 2022-12-25 16:57 | PM.PNGS ---
Progress Note: A&P Assessment and Plan (1) Acute cholecystitis: Code(s): K81.0 - Acute cholecystitis Status: Acute Assessment and Plan: WBC up slightly to 19,000 today, abdominal exam is still benign, tolerating a diet. Continue IV antibiotics. Continue low-fat diet. Repeat labs tomorrow. (2) Liver abscess: Code(s): K75.0 - Abscess of liver Status: Acute Assessment and Plan: Repeat CT was unchanged. Continue IV antibiotics. Likely will need outpatient IV antibiotics with interval CT to reassess abscess as an outpatient. Plan I have discussed the patient's case and plan of care with Dr. Tavera. Subjective Subjective Date/Time Seen: 12/25/22 16:57 Patient reports: no new complaints Interval history: Patient with no new complaints today. Still tolerating his diet with no complaints. No abdominal pain, nausea, or vomiting. Cholecystostomy tube still draining. White count noted to be up to 19,000 today. Exam Const: General: comfortable and no acute distress GI: Inspection: distended GI Palp: Yes Soft to palpation, Yes Tenderness to palpation present (GI) (Minimal tenderness near johnathon tube, otherwise no focal tenderness), No Guarding due to palpation present (GI) and No Rebound tenderness present Auscultation: normal bowel sounds Other: johnathon tube c thick, bilious drainage Objective Data Vital Signs Vital Signs: Vital Signs - 24 hr 12/24/22 21:38 12/25/22 00:16 12/24/22 20:00 Temperature 98.5 F Pulse Rate 78 Respiratory Rate 20 Blood Pressure 169/71 H 143/70 H Pulse Oximetry 99 Oxygen Delivery Room Air 12/25/22 06:00 12/25/22 08:00 12/25/22 13:53 Temperature 98.9 F 97.3 F L Pulse Rate 96 94 Respiratory Rate 20 18 Blood Pressure 174/7 H 166/77 H Pulse Oximetry 99 99 Oxygen Delivery Room Air Intake/Output Intake/Output: Intake & Output 12/22/22 12/23/22 12/24/22 12/25/22 23:59 23:59 23:59 23:59 Intake Total 1300 1910 1513 770 Output Total 755 1355 1450 600 Balance 545 555 63 170 Meds/Results Medications: Active Medications Generic Name Dose Route Start Last Admin Trade Name Freq PRN Reason Stop Dose Admin Acetaminophen 650 mg 12/14/22 19:48 12/25/22 10:05 Acetaminophen 325 Mg Tablet PO 650 mg Q4H PRN Administration Mild Pain (1-3) or Fever Amlodipine Besylate 10 mg 12/14/22 21:05 12/25/22 09:36 Amlodipine Besylate 5 Mg Tablet PO 10 mg QAM EDI Administration Baclofen 10 mg 12/14/22 21:35 12/25/22 09:40 Baclofen 10 Mg Tablet PO 10 mg BID [facility] Administration Clonidine HCl 0.2 mg 12/19/22 09:00 12/25/22 09:37 Clonidine Hcl 0.2 Mg Tablet PO 0.2 mg Q12HR [facility] Administration Docusate Sodium 100 mg 12/20/22 09:00 12/25/22 09:37 Docusate Sodium 100 Mg Capsule PO Not Given DAILY [facility] Enoxaparin Sodium 40 mg 12/20/22 09:00 12/25/22 10:05 Enoxaparin 40 Mg/0.4 Ml Syringe SUB-Q 40 mg DAILY [facility] Administration Fenofibrate 145 mg 12/15/22 09:00 12/25/22 09:36 Fenofibrate Nanocrystallized 145 Mg Tablet PO 145 mg DAILY [facility] Administration Ferrous Sulfate 325 mg 12/15/22 09:00 12/25/22 09:35 Ferrous Sulfate [address] BY MOUTH 325 mg BID [facility] Administration Folic Acid 2 mg 12/15/22 09:00 12/25/22 09:35 Folic Acid 1 Mg Tablet PO 2 mg DAILY [facility] Administration Gabapentin 600 mg 12/15/22 09:00 12/25/22 13:21 Gabapentin 300 Mg Capsule PO 600 mg TID [facility] Administration Hydralazine HCl 20 mg 12/24/22 09:20 12/25/22 05:40 Hydralazine Hcl 20 Mg/Ml Vial IV PUSH 20 mg Q4H PRN Administration Blood Pressure - High Hydrochlorothiazide 12.5 mg 12/15/22 09:00 12/25/22 09:35 Hydrochlorothiazide 12.5 Mg Capsule PO 12.5 mg DAILY [facility] Administration Piperacillin Sod/Tazobactam Sod 4.5 gm in 100 mls @ 200 mls/hr 12/19/22 17:00 12/25/22 13:50 Zosyn 4.5 Gm/Ns 100 Ml IVPB Infused Q6HR [facility] Infus
[2022-12-25] MEDS: CENTRAL LINE FLUSH 10 ML IV PUSH (21:43)
[2022-12-25 22:00] VITALS: BP 148/65; PULSE 95; RESP 18; TEMP 36.8; O2SAT 98
[2022-12-26] MEDS: PIPERACILLIN/TAZ 4.5G/NS 100ML 4.5 GM/100 ML BAG IVPB ×2 (00:36→06:10)
[2022-12-26 05:39] VITALS: BP 155/74; PULSE 90; RESP 20; TEMP 36.8; O2SAT 99
[2022-12-26] MEDS: CENTRAL LINE FLUSH 10 ML IV PUSH ×2 (06:16→13:29)
[2022-12-26 06:36] LABS: Basophils Absolute Auto 0.1 K/mm3 (0.0-0.1); Basophils Percent Auto 0.6 % (0.2-1.2); Eosinophils Absolute Auto 0.2 K/mm3 (0-0.3); Eosinophils Percent Auto 1.3 % (0-4.4); Hematocrit 29.2 % (42.0-52.0); Hemoglobin 9.3 g/dL (14.0-18.0); Immature Granulocyte Absolute 0.14 K/mm3 (0.00-0.031); Lymphocytes Absolute Auto 2.72 K/mm3 (0.9-3.2); Lymphocytes Percent Auto 19.7 % (18.3-44.2); Mean Corpuscular HGB Conc 31.8 g/dl (32-36); Mean Corpuscular Hemoglobin 28.7 pg (26-34); Mean Corpuscular Volume 90.1 fl (80-100); Mean Platelet Volume 11.2 fl (7.4-10.4); Monocytes Absolute Auto 1.4 K/mm3 (0.1-0.6); Neutrophils Absolute Auto 9.3 K/mm3 (1.3-6.7); Neutrophils Percent Auto 67.4 % (45.5-73.1); Platelet Count Result 355 k/mm3 (150-375); Red Blood Count 3.24 M/mm3 (4.6-6.20); Red Cell Distribution Width 15.6 % (11.5-14.5); White Blood Count 13.8 K/mm3 (4.5-10.0)
[2022-12-26 06:53] LABS: Alanine Aminotransferase 14 U/L (6-50); Albumin Level 3.6 g/dL (3.5-5.1); Alkaline Phosphatase 37 U/L (38-126); Anion Gap 10 mmol/L (8-16); Aspartate Amino Transferase 29 U/L (17-59); Bilirubin,Total 0.7 mg/dL (0.2-1.3); Blood Urea Nitrogen 19 mg/dL (9-20); Carbon Dioxide 22 mmol/L (22-30); Chloride 106 mmol/L (98-107); Estimated CRCL calculation 70 ml/min; Estimated Glomerular Filt Rate > 60; Glucose 101 mg/dL (65-110); Magnesium 1.7 mg/dL (1.6-2.3); Potassium 4.7 mmol/L (3.4-5.0); Sodium 138 mmol/L (137-145)
[2022-12-26] MEDS: LOSARTAN POTASSIUM 100 MG TABLET PO (09:02)
[2022-12-26] MEDS: PHENYTOIN SODIUM 100 MG EXTENDED RELEASE CAP 300 MG PO ×2 (09:03→17:25)
[2022-12-26] MEDS: cloNIDine HCL 0.2 MG TABLET PO ×2 (09:04→21:36)
[2022-12-26] MEDS: FOLIC ACID 1 MG TABLET 2 MG PO (09:04)
[2022-12-26] MEDS: amLODIPine BESYLATE 5 MG TABLET 10 MG PO (09:04)
[2022-12-26] MEDS: POTASSIUM CHLORIDE 10 MEQ ER TABLET PO (09:05)
[2022-12-26] MEDS: PANTOPRAZOLE 40 MG TABLET PO (09:05)
[2022-12-26] MEDS: GABAPENTIN 300 MG CAPSULE 600 MG PO ×3 (09:05→17:25)
[2022-12-26] MEDS: BACLOFEN 10 MG TABLET PO ×2 (09:05→17:25)
[2022-12-26] MEDS: FENOFIBRATE NANOCRYSTALLIZED 145 MG TABLET PO (09:05)
[2022-12-26] MEDS: FERROUS SULFATE 325 MG TABLET DR BY MOUTH ×2 (09:05→17:25)
[2022-12-26] MEDS: hydroCHLOROthiazide 12.5 MG CAPSULE PO (09:05)
[2022-12-26] MEDS: ENOXAPARIN 40 MG/0.4 ML SYRINGE SUB-Q (09:06)
--- NOTE | 2022-12-26 09:46 | PM.IMPN ---
Progress Note: A&P Assessment and Plan (1) Acute cholecystitis: Code(s): K81.0 - Acute cholecystitis Status: Acute Assessment and Plan: cont johnathon tube and abx, exam benign, cont low fat diet (2) Liver abscess: Code(s): K75.0 - Abscess of liver Status: Acute Assessment and Plan: WBC significantly improved, cont IV abx, ok to dc from surgical standpoint c f/u as outpt (3) Hypertension: Code(s): I10 - Essential (primary) hypertension Status: Chronic Assessment and Plan: -elevated blood pressure in the ED up to 200 systolic -continue home medications -p.r.n. hydralazine -on aspirin 81 mg -increased clonidine dose from 0.1 mg BID to 0.2 mg BID. Systolics in the 150-160's now. (4) Seizure disorder: Code(s): G40.909 - Epilepsy, unspecified, not intractable, without status epilepticus Status: Chronic Assessment and Plan: -Continue phenytoin. Patient should not be on tramadol with seizure disorder. -Repeat level is 6 ug/ml. Currently on Phenytoin 300 mg PO TID. Will ask neurology for recommendations for titration. - I spoke with Dr. Quesada who expects the patient is not taking his phenytoin as prescribed. He has been getting here consistently. Will re-check phenytoin level in 3 days. (5) History of CVA (cerebrovascular accident): Code(s): Z86.73 - Personal history of transient ischemic attack (TIA), and cerebral infarction without residual deficits Status: Chronic Assessment and Plan: Right-sided deficits and dysarthria, fenofibrate, statin (6) CROW (acute kidney injury): Code(s): N17.9 - Acute kidney failure, unspecified Status: Acute Assessment and Plan: Patient with elevated BUN and creatinine today of 41/1.8. Continue to monitor closely BUN and creatinine today 13/05.10 Plan PICC line placement today He will d/c home on 2 gram Rocephin daily and flagyl PO TID for a total of 6 weeks with starting date of 12/21 and end date of 02/01. Phyentoin level was low. Neuro thinks he wasn't taking it appropriately at home. Will continue with 300 mg TID and re-check a level in 3 days as an outpatient. Feeding: Low fat diet Analgesia:morphine, norco, acetaminophen Thromboembolic prophylaxis: SCDs Ulcer prophylaxis: Protonix Glycemic control: N/A, blood glucose on BMP 121 Bowel regimen: Colace and miralax Lines: PIV Drains: Percutaneous johnathon tube Antibiotics: Rocephin and Flagyl Time Spent With Patient Time with patient: 25 - 35 minutes Subjective Date/time seen: 12/26/22 09:46 Interval history: HPI obtained from chart, Patient is a 57-year-old male with past medical history of CVA with right-sided deficit and dysarthria, essential hypertension, GERD, hyperlipidemia, DVT, history of seizure disorder, abdominal hernia who presents to ED with complaints of nausea vomiting.? Patient states anything he tried to eat let him to vomit.? Nothing alleviated symptoms.? He has not had nausea vomiting like this before.? He does have and umbilical hernia and a ventral hernia, apparently has had history is of hernias with right inguinal repair in 2019.? He still has a gallbladder and appendix. In the ED:? Patient is found have leukocytosis WBC 21.5 K, he was given Rocephin and Flagyl antibiotic, 1 L fluid bolus.? Abdominal CT scan concerning for acute cholecystitis.? General surgery was consulted recommending hospitalist admission. 12/19: Patient is seen today postoperatively from percutaneous cholecystostomy tube. He says that the taping around the drain is uncomfortable and he has pain with deep inspiration. Drain has small amount of bilious output present. He says that he has not had any vomiting but is continuing to be nauseated. Continue with clear liquids for now. He has intermittently had headaches related to his uncontrolled hypertension. Appears during most of his admission his systolic has bee
--- NOTE | 2022-12-26 12:04 | PM.PNGS ---
Progress Note: A&P Assessment and Plan (1) Acute cholecystitis: Code(s): K81.0 - Acute cholecystitis Status: Acute Assessment and Plan: cont johnathon tube and abx, exam benign, cont low fat diet (2) Liver abscess: Code(s): K75.0 - Abscess of liver Status: Acute Assessment and Plan: WBC significantly improved, cont IV abx, ok to dc from surgical standpoint c f/u as outpt Subjective Subjective Date/Time Seen: 12/26/22 12:04 Interval history: feels good, no acute issues, beto low fat diet Review of Systems Review of Systems: All systems reviewed & are unremarkable except as noted in HPI and below Exam Const: General: cooperative, comfortable and no acute distress Resp: Auscultation: clear to auscultation bilaterally Cardio: Rate: regular rate Rhythm: regular rhythm GI: Inspection: normal to inspection and non-distended GI Palp: No abdominal tenderness and Yes Soft to palpation Objective Data Vital Signs Vital Signs: Vital Signs - 24 hr 12/25/22 13:53 12/25/22 20:00 12/25/22 22:00 Temperature 36.3 C L 36.8 C Pulse Rate 94 95 Respiratory Rate 18 18 Blood Pressure 166/77 H 148/65 H Pulse Oximetry 99 98 Oxygen Delivery Room Air 12/26/22 05:39 12/26/22 08:00 Temperature 36.8 C Pulse Rate 90 Respiratory Rate 20 Blood Pressure 155/74 H Pulse Oximetry 99 Oxygen Delivery Room Air Intake/Output Intake/Output: Intake & Output 12/23/22 12/24/22 12/25/22 12/26/22 23:59 23:59 23:59 23:59 Intake Total 1910 1513 1110 518 Output Total 1355 1450 600 600 Balance 555 63 510 -82 Meds/Results Medications: Active Medications Generic Name Dose Route Start Last Admin Trade Name Freq PRN Reason Stop Dose Admin Acetaminophen 650 mg 12/14/22 19:48 12/25/22 10:05 Acetaminophen 325 Mg Tablet PO 650 mg Q4H PRN Administration Mild Pain (1-3) or Fever Amlodipine Besylate 10 mg 12/14/22 21:05 12/26/22 09:04 Amlodipine Besylate 5 Mg Tablet PO 10 mg QAM EDI Administration Baclofen 10 mg 12/14/22 21:35 12/26/22 09:05 Baclofen 10 Mg Tablet PO 10 mg BID [facility] Administration Clonidine HCl 0.2 mg 12/19/22 09:00 12/26/22 09:04 Clonidine Hcl 0.2 Mg Tablet PO 0.2 mg Q12HR [facility] Administration Docusate Sodium 100 mg 12/20/22 09:00 12/26/22 09:06 Docusate Sodium 100 Mg Capsule PO Not Given DAILY [facility] Enoxaparin Sodium 40 mg 12/20/22 09:00 12/26/22 09:06 Enoxaparin 40 Mg/0.4 Ml Syringe SUB-Q 40 mg DAILY [facility] Administration Fenofibrate 145 mg 12/15/22 09:00 12/26/22 09:05 Fenofibrate Nanocrystallized 145 Mg Tablet PO 145 mg DAILY [facility] Administration Ferrous Sulfate 325 mg 12/15/22 09:00 12/26/22 09:05 Ferrous Sulfate [address] BY MOUTH 325 mg BID [facility] Administration Folic Acid 2 mg 12/15/22 09:00 12/26/22 09:04 Folic Acid 1 Mg Tablet PO 2 mg DAILY [facility] Administration Gabapentin 600 mg 12/15/22 09:00 12/26/22 09:05 Gabapentin 300 Mg Capsule PO 600 mg TID [facility] Administration Hydralazine HCl 20 mg 12/24/22 09:20 12/25/22 05:40 Hydralazine Hcl 20 Mg/Ml Vial IV PUSH 20 mg Q4H PRN Administration Blood Pressure - High Hydrochlorothiazide 12.5 mg 12/15/22 09:00 12/26/22 09:05 Hydrochlorothiazide 12.5 Mg Capsule PO 12.5 mg DAILY [facility] Administration Ceftriaxone Sodium 2 gm in 100 mls @ 200 mls/hr 12/26/22 12:00 Rocephin 2 Gm/Ns 100 Ml IVPB Q24H [facility] Losartan Potassium 100 mg 12/15/22 09:00 12/26/22 09:02 Losartan Potassium 100 Mg Tablet PO 100 mg DAILY [facility] Administration Metronidazole 500 mg 12/26/22 14:00 Metronidazole 250 Mg Tablet PO Q8HR [facility] Miscellaneous Information 1 each 12/24/22 00:01 12/26/22 02:38 Rosamond And Morphine Are Due For Renewal; Please Renew If Needed Or Med Will Auto D/C XX 01/23/23 00:00 Not Given CLARIFY [facility] Naloxone HCl 0.1 mg 12/14/22 19:48 Naloxone Hcl 0.4
[2022-12-26] MEDS: cefTRIAXone 2 GM/NS 100 ML 2 GM/100 ML BAG IVPB (12:06)
[2022-12-26] MEDS: metroNIDAZOLE 250 MG TABLET 500 MG PO ×2 (13:29→21:36)
[2022-12-26 14:00] VITALS: BP 149/69; PULSE 85; RESP 18; TEMP 37.2; O2SAT 100
[2022-12-26 21:22] VITALS: BP 149/80; PULSE 77; RESP 15; TEMP 36.3; O2SAT 99
[2022-12-27] MEDS: ACETAMINOPHEN 325 MG TABLET 650 MG PO (02:12)
[2022-12-27 04:55] VITALS: BP 159/87; PULSE 78; RESP 16; TEMP 36.1; O2SAT 99
[2022-12-27] MEDS: metroNIDAZOLE 250 MG TABLET 500 MG PO (06:43)
[2022-12-27] MEDS: CENTRAL LINE FLUSH 10 ML IV PUSH (06:44)
[2022-12-27 06:56] LABS: Basophils Absolute Auto 0.1 K/mm3 (0.0-0.1); Basophils Percent Auto 0.6 % (0.2-1.2); Eosinophils Absolute Auto 0.3 K/mm3 (0-0.3); Eosinophils Percent Auto 2.3 % (0-4.4); Hematocrit 30.7 % (42.0-52.0); Hemoglobin 9.5 g/dL (14.0-18.0); Immature Granulocyte Absolute 0.09 K/mm3 (0.00-0.031); Immature Granulocyte Percent A 0.8 % (0-0.5); Lymphocytes Percent Auto 21.7 % (18.3-44.2); Mean Corpuscular HGB Conc 30.9 g/dl (32-36); Mean Corpuscular Hemoglobin 28.4 pg (26-34); Mean Corpuscular Volume 91.9 fl (80-100); Mean Platelet Volume 11.4 fl (7.4-10.4); Monocytes Absolute Auto 1.1 K/mm3 (0.1-0.6); Monocytes Percent Auto 9.8 % (2.6-8.5); Neutrophils Absolute Auto 7.2 K/mm3 (1.3-6.7); Neutrophils Percent Auto 64.8 % (45.5-73.1); Platelet Count Result 359 k/mm3 (150-375); Red Blood Count 3.34 M/mm3 (4.6-6.20); Red Cell Distribution Width 15.2 % (11.5-14.5); White Blood Count 11.1 K/mm3 (4.5-10.0)
[2022-12-27 07:07] LABS: Alanine Aminotransferase 18 U/L (6-50); Albumin Level 3.6 g/dL (3.5-5.1); Alkaline Phosphatase 37 U/L (38-126); Anion Gap 10 mmol/L (8-16); Aspartate Amino Transferase 33 U/L (17-59); Bilirubin,Total 0.6 mg/dL (0.2-1.3); Blood Urea Nitrogen 20 mg/dL (9-20); Calcium 9.3 mg/dL (8.4-10.2); Carbon Dioxide 22 mmol/L (22-30); Chloride 103 mmol/L (98-107); Estimated CRCL calculation 89 ml/min; Estimated Glomerular Filt Rate > 60; Glucose 93 mg/dL (65-110); Magnesium 1.6 mg/dL (1.6-2.3); Potassium 5.1 mmol/L (3.4-5.0); Sodium 135 mmol/L (137-145)
[2022-12-27] MEDS: POTASSIUM CHLORIDE 10 MEQ ER TABLET PO (08:30)
[2022-12-27] MEDS: amLODIPine BESYLATE 5 MG TABLET 10 MG PO (08:30)
[2022-12-27] MEDS: FERROUS SULFATE 325 MG TABLET DR BY MOUTH (08:30)
[2022-12-27] MEDS: GABAPENTIN 300 MG CAPSULE 600 MG PO (08:30)
[2022-12-27] MEDS: hydroCHLOROthiazide 12.5 MG CAPSULE PO (08:30)
[2022-12-27] MEDS: FOLIC ACID 1 MG TABLET 2 MG PO (08:30)
[2022-12-27] MEDS: cloNIDine HCL 0.2 MG TABLET PO (08:30)
[2022-12-27] MEDS: PHENYTOIN SODIUM 100 MG EXTENDED RELEASE CAP 300 MG PO (08:30)
[2022-12-27] MEDS: BACLOFEN 10 MG TABLET PO (08:30)
[2022-12-27] MEDS: LOSARTAN POTASSIUM 100 MG TABLET PO (08:30)
[2022-12-27] MEDS: DOCUSATE SODIUM 100 MG CAPSULE PO (08:31)
[2022-12-27] MEDS: PANTOPRAZOLE 40 MG TABLET PO (08:31)
[2022-12-27] MEDS: FENOFIBRATE NANOCRYSTALLIZED 145 MG TABLET PO (08:31)
[2022-12-27] MEDS: ENOXAPARIN 40 MG/0.4 ML SYRINGE SUB-Q (08:34)
[2022-12-27] MEDS: polyethylene glycoL 3350 17 GM POWD.PACK PO (08:36)
--- NOTE | 2022-12-27 08:41 | PM.DS ---
DS: Admitting Diagnosis Discharge Date 12/27/2022 Admitting Diagnosis acute cholecystitis DS: Summary Hospital Course Reason for hospitalization: patient was admitted to the hospital for acute cholecystitis with nausea and vomiting Hospital Course: patient was admitted for acute cholecystitis had significant white blood cell count elevation and persistent nausea and vomiting upon admission. Per General surgery patient was a poor surgical candidate it. His bilirubin continued to rise. A drain was placed in the gallbladder Which cultured gram-negative bacilli. Patient remained on Zosyn for significant amount of time. Ultimately was determined patient would need IV ceftriaxone and oral Flagyl. Arrangements were made for patient to receive these medications at home to be administered by his niece or his neighbor. Home health is also being set up for occasional visits. On day of discharge patient expressing no pain states that he is definitely ready to go. Status at Discharge Cognitive/behavioral status at discharge: Awake alert oriented and pleasant Functional status at discharge: wheelchair bound Overall status at discharge: patient is progressing back to baseline Time Spent with Patient Time attestation: Total time spent providing and/or coordinating discharge services: Time spent: Greater than 30 minutes Exam Narrative: General: well appearing, well developed, well nourished, appears stated age. HEENT: normocephalic, atraumatic. Mucous membranes moist. EOMI, PERRLA, bilateral sclera anicteric, no conjunctival injection. Neck supple without JVD, lymphadenopathy, or bruit. Respiratory: clear but diminished throughout to auscultation bilaterally. No rales/rhonic/wheezes. Cardiovascular: Regular rate and rhythm, normal S1-S2 upon auscultation. No murmurs, rubs, or clicks. PMI is nondisplaced, capillary re-fill less than 3 second. Abdomen: Right upper quadrant bili drain with dark drainage. Soft, round, no pulsatile masses, distended and with minimal tenderness. No rebound, no guarding. No CVA tenderness, no hepatosplenomegaly. Bowel sounds hypoactive to all four quadrants. No high pitch or tinkling sounds, resonant to percussion. Extremities: No cyanosis, clubbing, or edema present. Pulses are palpable 2/2. Active ROM to all four extremities. Neuro: Alert and orientated x 4. PERRLA. Cranial nerves 2-12 intact without focal deficit. Skin: Warm, dry, and intact, without rash, erythema, or lesion. RUQ percutaneous drain with small amount of bilious output to gravity drainage. Lines: PICC left arm, RUQ bili drain Incisions: N/A Psych: pleasant, cooperative, normal speech, normal affect, no hallucinations, + dysarthria DS: Data Data Completed and Pending Labs on day of discharge: Labs from last 24 hours 12/27/22 06:30 WBC 11.1 H RBC 3.34 L Hgb 9.5 L Hct 30.7 L MCV 91.9 MCH 28.4 MCHC 30.9 L RDW 15.2 H Plt Count 359 MPV 11.4 H Immature Gran % (Auto) 0.8 H Neut % (Auto) 64.8 Lymph % (Auto) 21.7 [place] % (Auto) 9.8 H Eos % (Auto) 2.3 Baso % (Auto) 0.6 Lymph # (Auto) 2.40 [place] # (Auto) 1.1 H Eos # (Auto) 0.3 Baso # (Auto) 0.1 Abs Immat Gran (auto) 0.09 H Absolute Neuts (auto) 7.2 H Absolute Nucleated RBC 0.0 Nucleated RBC % 0.0 Sodium 135 L Potassium 5.1 H Chloride 103 Carbon Dioxide 22 Anion Gap 10 BUN 20 Creatinine 1.00 Estim Creat Clear Calc 89 Estimated GFR > 60 Glucose 93 Calcium 9.3 Magnesium 1.6 Total Bilirubin 0.6 AST 33 ALT 18 Alkaline Phosphatase 37 L Total Protein 8.0 Albumin 3.6 Preliminary micro results at discharge 12/18/22 15:08 Fungal Culture - Preliminary Gallbladder Fluid Discharge Plan Discharge Attending physician on discharge: Reggie Quezada Consulting providers: Parul Tavera; Jonathan Ambriz; Filiberto Grace; Puneet Malhotra; Rodney Jurado; Kylah Meng; Cheryl Hogan; Radames Lambert V.; Andrea
--- NOTE | 2022-12-27 10:28 | PM.PNGS ---
Progress Note: A&P Assessment and Plan (1) Acute cholecystitis: Code(s): K81.0 - Acute cholecystitis Status: Acute Assessment and Plan: Continue to monitor cholecystostomy tube, and continue IV antibiotics. He is tolerating a low-fat diet and his abdominal exam remains benign. Okay from our standpoint to discharge the patient home with IV antibiotics. We will schedule him for a repeat CT scan of the abdomen and pelvis as an outpatient in 2 weeks with follow-up with Dr. Tavera. He will eventually need a cholangiogram to the cholecystostomy tube, which will be scheduled after his follow-up appointment. Continue low-fat diet. (2) Liver abscess: Code(s): K75.0 - Abscess of liver Status: Acute Assessment and Plan: Continue IV antibiotics and see plan above. Plan I have discussed the patient's case and plan of care with Dr. Tavera. Subjective Subjective Date/Time Seen: 12/27/22 10:28 Patient reports: no new complaints, tolerating a regular diet and afebrile Interval history: Patient doing well today. No acute changes. No new complaints overnight. Cholecystostomy tube still draining. Review of Systems Review of Systems: ROS unchanged Exam Const: General: comfortable and no acute distress GI: Inspection: normal to inspection and non-distended GI Palp: Yes Soft to palpation, No Tenderness to palpation present (GI) and No Guarding due to palpation present (GI) Auscultation: normal bowel sounds Other: johnathon tube c thick, bilious drainage Objective Data Vital Signs Vital Signs: Vital Signs - 24 hr 12/26/22 14:00 12/26/22 21:22 12/26/22 20:00 Temperature 98.9 F 97.3 F L Pulse Rate 85 77 Respiratory Rate 18 15 Blood Pressure 149/69 H 149/80 H Pulse Oximetry 100 99 Oxygen Delivery Room Air 12/27/22 04:55 12/27/22 08:00 Temperature 97.0 F L Pulse Rate 78 Respiratory Rate 16 Blood Pressure 159/87 H Pulse Oximetry 99 Oxygen Delivery Room Air Intake/Output Intake/Output: Intake & Output 12/24/22 12/25/22 12/26/22 12/27/22 23:59 23:59 23:59 23:59 Intake Total 1513 1110 518 940 Output Total 3459 815 7421 695 Balance 63 510 -1512 245 Meds/Results Medications: Active Medications Generic Name Dose Route Start Last Admin Trade Name Sonia PRN Reason Stop Dose Admin Acetaminophen 650 mg 12/14/22 19:48 12/27/22 02:12 Acetaminophen 325 Mg Tablet PO 650 mg Q4H PRN Administration Mild Pain (1-3) or Fever Amlodipine Besylate 10 mg 12/14/22 21:05 12/27/22 08:30 Amlodipine Besylate 5 Mg Tablet PO 10 mg QAM EDI Administration Baclofen 10 mg 12/14/22 21:35 12/27/22 08:30 Baclofen 10 Mg Tablet PO 10 mg BID EDI Administration Clonidine HCl 0.2 mg 12/19/22 09:00 12/27/22 08:30 Clonidine Hcl 0.2 Mg Tablet PO 0.2 mg Q12HR EDI Administration Docusate Sodium 100 mg 12/20/22 09:00 12/27/22 08:31 Docusate Sodium 100 Mg Capsule PO 100 mg DAILY EDI Administration Enoxaparin Sodium 40 mg 12/20/22 09:00 12/27/22 08:34 Enoxaparin 40 Mg/0.4 Ml Syringe SUB-Q 40 mg DAILY EDI Administration Fenofibrate 145 mg 12/15/22 09:00 12/27/22 08:31 Fenofibrate Nanocrystallized 145 Mg Tablet PO 145 mg DAILY EDI Administration Ferrous Sulfate 325 mg 12/15/22 09:00 12/27/22 08:30 Ferrous Sulfate [address] BY MOUTH 325 mg BID EDI Administration Folic Acid 2 mg 12/15/22 09:00 12/27/22 08:30 Folic Acid 1 Mg Tablet PO 2 mg DAILY EDI Administration Gabapentin 600 mg 12/15/22 09:00 12/27/22 08:30 Gabapentin 300 Mg Capsule PO 600 mg TID EDI Administration Hydralazine HCl 20 mg 12/24/22 09:20 12/25/22 05:40 Hydralazine Hcl 20 Mg/Ml Vial IV PUSH 20 mg Q4H PRN Administration Blood Pressure - High Hydrochlorothiazide 12.5 mg 12/15/22 09:00 12/27/22 08:30 Hydrochlorothiazide 12.5 Mg Capsule PO 12.5 mg DAILY EDI Administration
[2022-12-27] MEDS: cefTRIAXone 2 GM/NS 100 ML 2 GM/100 ML BAG IVPB (11:25)
== END 2022-12-27 12:40 | disposition home health service (06) ==
LOC: ANHED 14:30 → ANH3MEDSUR 18:26
PROVIDERS: Internal Medicine Critical Care Medicine; Nurse Practitioner Acute Care; Preventive Medicine Aerospace Medicine; Surgery; Admitting Provider Student in an Organized Health Care Education/Training Program; Emergency Provider Emergency Medicine; PCP Internal Medicine; Visit Provider Nurse Practitioner
DX: K81.0 Acute cholecystitis (principal); K75.0 Abscess of liver; N17.9 Acute kidney failure, unspecified; I69.351 Hemiplegia and hemiparesis following cerebral infarction affecting right dominant side; I69.322 Dysarthria following cerebral infarction; D50.9 Iron deficiency anemia, unspecified; E78.5 Hyperlipidemia, unspecified; G40.909 Epilepsy, unspecified, not intractable, without status epilepticus; G62.9 Polyneuropathy, unspecified; I10 Essential (primary) hypertension; I16.0 Hypertensive urgency; K21.9 Gastro-esophageal reflux disease without esophagitis; K43.9 Ventral hernia without obstruction or gangrene; K42.9 Umbilical hernia without obstruction or gangrene; Z86.718 Personal history of other venous thrombosis and embolism; Z20.822 Contact with and (suspected) exposure to COVID-19; Z87.891 Personal history of nicotine dependence; Z79.82 Long term (current) use of aspirin
CPT/HCPCS: 36415; 36569; 47490; 71045; 71046; 74160; 74176; 74177; 74183; 76376; 76705; 80048; 80053; 80185; 81001; 83605; 83690; 83735; 84100; 84484; 85025; 85055; 85610; 85730; 87040; 87070; 87075; 87081; 87102; 87205; 87206; 87636; 94640; 96360; 96361; 96374; 96375; 96376; 97110; 97116; 97161; 97165; 97530; 97535; 99285; A9270; A9577; C1729; G0378; G0379; J0360; J0696; J1170; J1650; J1836; J2270; J2405; J2543; J3370; J7030; J7120; Q9967

== ENCOUNTER 2022-12-28 12:45 | Outpatient (NON) | payer OTHER, SELFPAY ==
[2022-12-28 14:19] LABS: Phenytoin Dilantin 6 ug/mL (10-20)
== END 2022-12-28 12:46 | disposition home or self-care (01) ==
PROVIDERS: PCP Internal Medicine; Visit Provider Nurse Practitioner Acute Care
DX: G40.909 Epilepsy, unspecified, not intractable, without status epilepticus (principal)
CPT/HCPCS: 80185

== ENCOUNTER 2023-01-01 11:28 | Outpatient (NON) | payer OTHER, SELFPAY ==
[2023-01-01 12:51] LABS: Basophils Absolute Auto 0.1 K/mm3 (0.0-0.1); Basophils Percent Auto 1.5 % (0.2-1.2); Eosinophils Absolute Auto 0.2 K/mm3 (0-0.3); Eosinophils Percent Auto 2.6 % (0-4.4); Hematocrit 29.3 % (42.0-52.0); Hemoglobin 9.3 g/dL (14.0-18.0); Immature Granulocyte Absolute 0.02 K/mm3 (0.00-0.031); Immature Granulocyte Percent A 0.3 % (0-0.5); Lymphocytes Absolute Auto 2.28 K/mm3 (0.9-3.2); Lymphocytes Percent Auto 33.4 % (18.3-44.2); Mean Corpuscular HGB Conc 31.7 g/dl (32-36); Mean Corpuscular Hemoglobin 28.9 pg (26-34); Monocytes Absolute Auto 0.6 K/mm3 (0.1-0.6); Monocytes Percent Auto 9.4 % (2.6-8.5); Neutrophils Absolute Auto 3.6 K/mm3 (1.3-6.7); Neutrophils Percent Auto 52.8 % (45.5-73.1); Platelet Count Result 383 k/mm3 (150-375); Red Blood Count 3.22 M/mm3 (4.6-6.20); Red Cell Distribution Width 14.6 % (11.5-14.5); White Blood Count 6.8 K/mm3 (4.5-10.0)
[2023-01-01 13:01] LABS: Alanine Aminotransferase 16 U/L (6-50); Albumin Level 3.8 g/dL (3.5-5.1); Alkaline Phosphatase 44 U/L (38-126); Anion Gap 8 mmol/L (8-16); Aspartate Amino Transferase 27 U/L (17-59); Bilirubin,Total 0.5 mg/dL (0.2-1.3); Blood Urea Nitrogen 16 mg/dL (9-20); Calcium 9.3 mg/dL (8.4-10.2); Carbon Dioxide 25 mmol/L (22-30); Chloride 103 mmol/L (98-107); Estimated Glomerular Filt Rate > 60; Glucose 83 mg/dL (65-110); Potassium 4.5 mmol/L (3.4-5.0); Sodium 136 mmol/L (137-145)
== END 2023-01-01 11:29 | disposition home or self-care (01) ==
LOC: ANHLAB 11:30 → HOME HLTH 11:35
PROVIDERS: PCP Internal Medicine; Visit Provider Nurse Practitioner
DX: K81.0 Acute cholecystitis (principal); K75.0 Abscess of liver
CPT/HCPCS: 80053; 85025

== ENCOUNTER 2023-01-08 14:09 | Outpatient (NON) | payer OTHER, SELFPAY ==
[2023-01-08 14:40] LABS: Hematocrit 29.1 % (42.0-52.0); Hemoglobin 9.3 g/dL (14.0-18.0); Mean Corpuscular Hemoglobin 28.6 pg (26-34); Mean Corpuscular Volume 89.5 fl (80-100); Platelet Count Result 206 k/mm3 (150-375); Red Blood Count 3.25 M/mm3 (4.6-6.20); Red Cell Distribution Width 14.6 % (11.5-14.5); White Blood Count 6.7 K/mm3 (4.5-10.0)
[2023-01-08 14:41] LABS: Basophils Absolute Auto 0.1 K/mm3 (0.0-0.1); Basophils Percent Auto 0.8 % (0.2-1.2); Eosinophils Absolute Auto 0.2 K/mm3 (0-0.3); Eosinophils Percent Auto 3.3 % (0-4.4); Immature Granulocyte Absolute 0.01 K/mm3 (0.00-0.031); Immature Granulocyte Percent A 0.2 % (0-0.5); Lymphocytes Percent Auto 39.1 % (18.3-44.2); Mean Platelet Volume 12.8 fl (7.4-10.4); Monocytes Absolute Auto 0.8 K/mm3 (0.1-0.6); Monocytes Percent Auto 11.3 % (2.6-8.5); Neutrophils Percent Auto 45.3 % (45.5-73.1)
[2023-01-08 14:54] LABS: Alanine Aminotransferase 14 U/L (6-50); Albumin Level 3.8 g/dL (3.5-5.1); Alkaline Phosphatase 44 U/L (38-126); Anion Gap 8 mmol/L (8-16); Aspartate Amino Transferase 23 U/L (17-59); Bilirubin,Total 0.4 mg/dL (0.2-1.3); Blood Urea Nitrogen 12 mg/dL (9-20); Calcium 8.9 mg/dL (8.4-10.2); Carbon Dioxide 26 mmol/L (22-30); Chloride 103 mmol/L (98-107); Estimated Glomerular Filt Rate > 60; Glucose 66 mg/dL (65-110); Phenytoin Dilantin 10 ug/mL (10-20); Potassium 3.9 mmol/L (3.4-5.0); Sodium 137 mmol/L (137-145)
== END 2023-01-08 14:10 | disposition home or self-care (01) ==
LOC: HOME HLTH 14:12
PROVIDERS: PCP Internal Medicine; Visit Provider Internal Medicine
DX: K81.0 Acute cholecystitis (principal); K75.0 Abscess of liver; Z45.2 Encounter for adjustment and management of vascular access device; Z43.4 Encounter for attention to other artificial openings of digestive tract
CPT/HCPCS: 80053; 80185; 85025

== ENCOUNTER 2023-01-10 08:58 | Outpatient (CLI) | payer OTHER, SELFPAY ==
--- NOTE | ~2023-01-10 | CT_ITS ---
CT of the Abdomen and Pelvis: Indication: Liver abscess Technique: 2.5 mm axial scans were obtained through the abdomen and pelvis following intravenous adm inistration of 100 cc of Omnipaque 350. Dose reduction technique was used on this scan by utilizing a utomated exposure control and iterative reconstruction technique. The dose-length product (DLP) was 1 224.68 mGy-cm. COMPARISON: 12/24/2022 Findings: Scans through the lung bases are unremarkable. The liver, spleen, pancreas, adrenals and kidneys are within normal limits. Cholecystectomy tube is p resent. Gallbladder is distended with mild wall thickening and small gallstones present. No evidence of aortic aneurysm. No lymphadenopathy. No bowel obstruction or bowel wall thickening. There is no evidence to suggest acute appendicitis. Sm all ventral fat-containing hernia noted. Images through the pelvis were performed. Urinary bladder unremarkable. No pelvic mass seen. No ascit es. Impression: Cholecystostomy tube with persistent gallbladder distention wall thickening, and small stones. Previously noted abscesses along the inferior margin of the left hepatic lobe are resolved. Small fat-containing ventral hernia. Reviewed, dictated and finalized at location . Impression: Cholecystostomy tube with persistent gallbladder distention wall thickening, an d small stones. Previously noted abscesses along the inferior margin of the left hepatic lobe a re resolved. Small fat-containing ventral hernia.
== END 2023-01-10 08:59 | disposition home or self-care (01) ==
PROVIDERS: PCP Internal Medicine; Visit Provider Surgery
DX: K81.0 Acute cholecystitis (principal); K75.0 Abscess of liver; K43.9 Ventral hernia without obstruction or gangrene
CPT/HCPCS: 74177; Q9967

== ENCOUNTER 2023-01-15 11:22 | Outpatient (NON) | payer OTHER, SELFPAY ==
[2023-01-15 11:59] LABS: Basophils Percent Auto 0.8 % (0.2-1.2); Eosinophils Absolute Auto 0.2 K/mm3 (0-0.3); Eosinophils Percent Auto 2.8 % (0-4.4); Hematocrit 30.3 % (42.0-52.0); Hemoglobin 9.6 g/dL (14.0-18.0); Immature Granulocyte Absolute 0.01 K/mm3 (0.00-0.031); Immature Granulocyte Percent A 0.2 % (0-0.5); Lymphocytes Absolute Auto 2.14 K/mm3 (0.9-3.2); Lymphocytes Percent Auto 40.6 % (18.3-44.2); Mean Corpuscular HGB Conc 31.7 g/dl (32-36); Mean Corpuscular Hemoglobin 28.7 pg (26-34); Mean Corpuscular Volume 90.4 fl (80-100); Mean Platelet Volume 12.9 fl (7.4-10.4); Monocytes Absolute Auto 0.6 K/mm3 (0.1-0.6); Monocytes Percent Auto 11.4 % (2.6-8.5); Neutrophils Absolute Auto 2.3 K/mm3 (1.3-6.7); Neutrophils Percent Auto 44.2 % (45.5-73.1); Platelet Count Result 140 k/mm3 (150-375); Red Blood Count 3.35 M/mm3 (4.6-6.20); Red Cell Distribution Width 14.8 % (11.5-14.5); White Blood Count 5.3 K/mm3 (4.5-10.0)
[2023-01-15 12:12] LABS: Potassium 3.5 mmol/L (3.4-5.0)
[2023-01-15 12:13] LABS: Alanine Aminotransferase 14 U/L (6-50); Albumin Level 3.8 g/dL (3.5-5.1); Alkaline Phosphatase 46 U/L (38-126); Anion Gap 8 mmol/L (8-16); Aspartate Amino Transferase 23 U/L (17-59); Bilirubin,Total 0.4 mg/dL (0.2-1.3); Blood Urea Nitrogen 10 mg/dL (9-20); Calcium 8.8 mg/dL (8.4-10.2); Carbon Dioxide 26 mmol/L (22-30); Chloride 103 mmol/L (98-107); Estimated Glomerular Filt Rate > 60; Glucose 93 mg/dL (65-110); Sodium 137 mmol/L (137-145)
== END 2023-01-15 11:23 | disposition home or self-care (01) ==
LOC: HOME HLTH 11:25
PROVIDERS: PCP Internal Medicine; Visit Provider Nurse Practitioner
DX: K81.0 Acute cholecystitis (principal); K75.0 Abscess of liver
CPT/HCPCS: 80053; 85025; 85055

== ENCOUNTER 2023-01-21 10:36 | Outpatient (NON) | payer OTHER, SELFPAY ==
[2023-01-21 11:21] LABS: Basophils Absolute Auto 0.1 K/mm3 (0.0-0.1); Eosinophils Absolute Auto 0.2 K/mm3 (0-0.3); Eosinophils Percent Auto 3.6 % (0-4.4); Hematocrit 31.6 % (42.0-52.0); Immature Granulocyte Absolute 0.02 K/mm3 (0.00-0.031); Immature Granulocyte Percent A 0.4 % (0-0.5); Immature Platelet Fraction Pct 15.2 % (0.9-11.2); Lymphocytes Absolute Auto 2.02 K/mm3 (0.9-3.2); Lymphocytes Percent Auto 38.5 % (18.3-44.2); Mean Corpuscular HGB Conc 31.6 g/dl (32-36); Mean Corpuscular Volume 91.6 fl (80-100); Mean Platelet Volume 13.4 fl (7.4-10.4); Monocytes Absolute Auto 0.6 K/mm3 (0.1-0.6); Monocytes Percent Auto 11.4 % (2.6-8.5); Neutrophils Absolute Auto 2.4 K/mm3 (1.3-6.7); Neutrophils Percent Auto 45.1 % (45.5-73.1); Platelet Count Result 146 k/mm3 (150-375); Red Blood Count 3.45 M/mm3 (4.6-6.20); Red Cell Distribution Width 14.9 % (11.5-14.5); White Blood Count 5.3 K/mm3 (4.5-10.0)
[2023-01-21 11:26] LABS: Alanine Aminotransferase 14 U/L (6-50); Albumin Level 3.9 g/dL (3.5-5.1); Alkaline Phosphatase 42 U/L (38-126); Anion Gap 7 mmol/L (8-16); Aspartate Amino Transferase 25 U/L (17-59); Bilirubin,Total 0.5 mg/dL (0.2-1.3); Blood Urea Nitrogen 10 mg/dL (9-20); Calcium 8.7 mg/dL (8.4-10.2); Carbon Dioxide 26 mmol/L (22-30); Chloride 102 mmol/L (98-107); Estimated Glomerular Filt Rate > 60; Glucose 94 mg/dL (65-110); Potassium 3.9 mmol/L (3.4-5.0); Sodium 135 mmol/L (137-145)
== END 2023-01-21 10:37 | disposition home or self-care (01) ==
LOC: HOME HLTH 10:38
PROVIDERS: PCP Internal Medicine; Visit Provider Nurse Practitioner
DX: K81.0 Acute cholecystitis (principal); K75.0 Abscess of liver
CPT/HCPCS: 80053; 85025; 85055

== ENCOUNTER 2023-01-22 09:13 | Outpatient (CLI) | payer OTHER, SELFPAY ==
--- NOTE | ~2023-01-22 | XR_ITS ---
EXAMINATION: XR catheter cholangiogram DATE: 01/22/2023 09:59 INDICATION: Acute cholecystitis. TECHNIQUE: I injected the percutaneous cholecystostomy tube with water-soluble contrast and performed fluoroscopy of the abdomen. The number of images was 6. The fluoroscopy exposure time was 0.6 minute s. COMPARISON: CT abdomen and pelvis 01/10/2023 FINDINGS: There is a cholecystostomy tube in expected position in the gallbladder. Cholelithiasis is noted. There is contrast opacification of the cystic duct and common duct with passage of contrast to the duodenum. No choledocholithiasis. IMPRESSION: 1. Patent cystic duct and common duct. 2. Cholelithiasis. Percutaneous cholecystostomy tube in expected position. Reviewed, dictated and finalized at location A.
== END 2023-01-22 09:14 | disposition home or self-care (01) ==
LOC: ANHIMG 09:14
PROVIDERS: PCP Internal Medicine; Visit Provider Surgery
DX: K81.0 Acute cholecystitis (principal)
CPT/HCPCS: 47531; Q9966

== ENCOUNTER 2023-01-28 17:30 | Outpatient (NON) | payer OTHER, SELFPAY ==
[2023-01-28 17:44] LABS: Basophils Absolute Auto 0.1 K/mm3 (0.0-0.1); Basophils Percent Auto 0.9 % (0.2-1.2); Eosinophils Absolute Auto 0.2 K/mm3 (0-0.3); Eosinophils Percent Auto 3.9 % (0-4.4); Hematocrit 34.2 % (42.0-52.0); Hemoglobin 10.6 g/dL (14.0-18.0); Immature Granulocyte Absolute 0.01 K/mm3 (0.00-0.031); Immature Granulocyte Percent A 0.2 % (0-0.5); Immature Platelet Fraction Pct 13.8 % (0.9-11.2); Lymphocytes Percent Auto 38.7 % (18.3-44.2); Mean Corpuscular Hemoglobin 28.8 pg (26-34); Mean Corpuscular Volume 92.9 fl (80-100); Monocytes Absolute Auto 0.6 K/mm3 (0.1-0.6); Monocytes Percent Auto 10.4 % (2.6-8.5); Neutrophils Absolute Auto 2.6 K/mm3 (1.3-6.7); Neutrophils Percent Auto 45.9 % (45.5-73.1); Platelet Count Result 169 k/mm3 (150-375); Red Blood Count 3.68 M/mm3 (4.6-6.20); Red Cell Distribution Width 14.6 % (11.5-14.5); White Blood Count 5.7 K/mm3 (4.5-10.0)
[2023-01-28 17:49] LABS: Alanine Aminotransferase 13 U/L (6-50); Albumin Level 4.1 g/dL (3.5-5.1); Alkaline Phosphatase 51 U/L (38-126); Anion Gap 10 mmol/L (8-16); Aspartate Amino Transferase 29 U/L (17-59); Bilirubin,Total 0.5 mg/dL (0.2-1.3); Blood Urea Nitrogen 9 mg/dL (9-20); Carbon Dioxide 24 mmol/L (22-30); Chloride 104 mmol/L (98-107); Estimated Glomerular Filt Rate > 60; Glucose 81 mg/dL (65-110); Sodium 138 mmol/L (137-145)
== END 2023-01-28 17:31 | disposition home or self-care (01) ==
LOC: HOME HLTH 17:32
PROVIDERS: PCP Internal Medicine; Visit Provider Nurse Practitioner
DX: K81.0 Acute cholecystitis (principal)
CPT/HCPCS: 80053; 85025; 85055